=== PATIENT | female | born 1985 | race Caucasian/White ===

== ENCOUNTER 2017-03-31 13:37 | Emergency (ER) | payer SELFPAY ==
[2017-03-31 13:38] VITALS: BP 130/71; PULSE 79; RESP 18; TEMP 36.6; O2SAT 99; BMI 35.2
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
[2017-03-31 15:09] VITALS: PULSE 84; RESP 16
== END 2017-03-31 15:10 | disposition home or self-care (01) ==
PROVIDERS: Emergency Provider Emergency Medicine; Family Provider Family Medicine; PCP Family Medicine
DX: S06.0X0A Concussion without loss of consciousness, initial encounter (principal); S16.1XXA Strain of muscle, fascia and tendon at neck level, initial encounter; V53.5XXA Driver of pick-up truck or van injured in collision with car, pick-up truck or van in traffic accident, initial encounter; Y93.9 Activity, unspecified; Y92.481 Parking lot as the place of occurrence of the external cause; Y99.9 Unspecified external cause status
CPT/HCPCS: 99282

== ENCOUNTER → 2018-01-22 14:25 | Outpatient (CLI) | payer BC, SELFPAY ==
[2018-01-26 12:51] LABS: HPV Reflexed? NOT INDICATED
== END ==
PROVIDERS: PCP Family Medicine; Visit Provider Obstetrics & Gynecology
DX: Z12.4 Encounter for screening for malignant neoplasm of cervix (principal)
CPT/HCPCS: 88175; G0145

== ENCOUNTER 2018-02-21 10:30 | Day surgery (SDC) | payer BC, SELFPAY ==
--- NOTE | 2018-02-15 13:12 | HP.PCM_ITS ---
History and Physical Date of Admission: 02/15/18 [facility] Age: 32 HISTORY OF PRESENT ILLNESS: On 02/15/2018, Lulu Celveland, a 32 year old female 3 0 0 0 3, presented for: -- Pre-Op PT is a 32 yo female, G-3 P-3 here today for her preop appt. PT is scheduled to have a LAVH/BS / L oophorectomy done on 02/21/[address] Nayak at [facility]. PT denies any problems or concerns at this time. PTs medications, allergies and medical history reviewed and updated. dg -- Here for preop prior to LAVH, Bilateral salpingectomy and L oophorectomy for endometriosis, chronic pelvic pain. Documented endometrioma L ovary and prior L/S at time of her bilateral tubal occlusion showed endometriosis diffusely th roughout the pelvis. EB ALLERGIES: Depo-Provera, Hives and/or rash, IVP Dye, Iodine Containing and Intolerance-vomiting MEDICATIONS HISTORY: Patient is also takin. No Meds REVIEW OF SYSTEMS: GENERAL - Denies fever, or chills SKIN - Denies skin changes EYES - Denies visual changes EARS - Denies difficulty hearing NOSE - Denies nasal congestion or bleeding MOUTH - Denies sore throat or difficulty swallowing NECK - Denies pain or swelling RESPIRATORY - Denies shortness of breath or wheezing CARDIOVASCULAR - Denies palpitations or chest pain GASTROINTESTINAL - Denies nausea, vomiting, diarrhea, constipation GENITOURINARY - Denies dysuria, frequency of urination, incontinence of urine MUSCULOSKELETAL - Denies joint or muscle pain NEUROLOGICAL - Denies localized numbness or weakness PSYCHIATRIC - Denies depression or anxiety ENDOCRINE - Denies heat or cold intolerance, weight loss or gain HEMATO-IMMUNOLOGIC - Denies excesive bleeding with cuts PAST HISTORY: Breast/Ovarian/Colon Cancers - Mother had Breast Cancer approximately age 40-50 Infections - Chicken pox Illnesses - Asthma, Anemia Accidents - no injuries of consequence History of Abnormal PAPS - NO Hospitalizations - None SURGICAL HISTORY: . 09/2016 Skin Tumor Removal from Head Dr. Tan 2. Microdiscectomy, 05/03 3. 04/15/2015 Lap BTO with filshie, aspiration of hemorrhagic left ovarian cyst Mary Beth Nayak M.D. MENSTRUAL HISTORY: LMP Known?- Approximate-Month KnownAmount/Duration - 5-6 DAYS, Regularity - Regular, Frequency - monthly days, LMP - 01/17/18, Age Onset Menarche - 14 PAST PREGNANCIES: Total Pregnancies - 3; Full Term Pregnancies - 3; Premature - 0; Abortions, Induced - 0; Abortions, Spontaneous - 0; Ectopics - 0; Multiple Births - 0; Living Children - 3 SOCIAL HISTORY: Alcohol Use - none while pregant Smoking - smokes 1/2 PPD, ATQ! and quit 05/21/14 Diet - no special diet Lifestyle - moderate stress lifestyle and Exercise - regular Seat Belt Use - always Employer - [employer] Job Description - Middle School History Teacher Illicit Drug Use - denies use of street drugs Sexual Activity - Residence - lives with Place of - [place], [place] Hours Worked - 40 hours per week Spouse-Sig Other Name - Stas Spenceraver Spouse-Sig Other Occupation - Board Operator Spouse-Sig Other Phone No - [phone] Children Name(s) - Jovani Light Davida Control - Tubal PHYSICAL EXAMINATION BP- 112/60 Sitting, Right arm, regular cuff Weight- 175.00 lbs Height- 67.50 inch BMI:27.06 CONSTITUTIONAL - NAD, well nourished, and well developed HEENT - Normocephalic, PERRLA, EOMI NECK - no nuchal rigidity EXTREMITIES - No edema or calf tenderness NEUROLOGICAL - Cranial nerves II-XII grossly intact PSYCHIATRIC - A and O to time, place, person, mood and affect ASSESSMENT: 1. Endometriosis Of Ovary 2. Endometriosis Of Pelvic Peritoneum 3. Unspecified Ovarian Cyst, Left Side 4. Lower Abdominal Pain, Unspecified PLAN BY DIAGNOSIS: 1. Endometriosis Of Ovary, Endometriosis Of Pelvic Peritoneum, Lower Abdominal Pain, Unspecified, Unspecified Ovarian Cyst and Left Side Sono at last visit with probable endometrioma L ovary Prior L/S BTO, Filshie clips with implants all over uterus c/w probable endometriosis. Hemorrhagic cyst drained at that time (2015) on L ovary. No pain with intercourse. Denies significant pain with periods. Has bilateral lower abdominal pain and pain with intercourse. Advised of options for medical management: OCP and DepoLupron. Side effects discussed. Prior BTO. No further childbearing desired. Declines DepoProvera (allergic rxn to that injection) Declines medical management. Plans LAVH, bilateral salpingectomy and L oophorectomy. Reviewed R,B,A Discussed anticipated preop, operative and postop recovery including activity restrictions. Plan to leave R ovary in place to avoid need for ERT / due to her age. RTO in 2 wk after surgery for postoperative appt.
[2018-02-16 15:18] LABS: International Normalized Ratio 1.1
[2018-02-16 15:19] LABS: Partial Thromboplast Time 26.2 Seconds (24.1-36.2)
[2018-02-16 15:33] LABS: Hematocrit 40.1 % (37-47); Hemoglobin 13.8 g/dl (12.0-15.0); Mean Corp Hgb Conc 34.4 g/gl (32-36); Mean Corpuscular Hgb 31.2 pg (27.0-32.0); Mean Corpuscular Volume 90.5 fL (81-99); Mean Platelet Vol. 10.2 fl (6.2-12.0); Platelet Count 317 K/mm3 (150-450); RBC Distribution Width CV 13.5 % (11.6-14.6); Red Blood Count 4.43 M/mm3 (4.2-5.4); White Blood Count 7.9 K/mm3 (4.4-11.0)
[2018-02-16 15:34] LABS: Scan Indicated on CBC? Y/N NO
[2018-02-21] VITALS (12 sets, daily range): BP systolic 86–105; BP diastolic 50–69; PULSE 45–78; RESP 14–18; TEMP 36.3–36.9; O2SAT 97–100; BMI 26.9
--- NOTE | 2018-02-21 | HYST_PTH ---
PATIENT: [facility] [place] LOC: [facility] [place] U#:[id number] AGE/SX: 33/F ROOM: RE02/21/[address]: Dr. Mary Beth Nayak MD : 1985 BED: DIS: 02/22/2018 SPEC #: [id number] RECD: 02/21/18 14:22 STATUS: ANNY VIVI #: [id number] BRONSON: 02/21/18 00:[address]: Mary Beth Nayak DEPT: SURGICAL PATHOLOGY RECD BY: Orlando Mcdowell ENTERED: 02/21/18 14:22 SP TYPE: HYSTERECT OTHR DR: Dr. Zheng Duque MD Tissues: Uterus, NOS Procedures: Surgery Specimen Level V HEADER OPERATION: Hysterectomy, lap-assisted vaginal, bilateral salpingectomy, left oophorectomy PRE-OP DIAGNOSIS: Endometriosis of ovary; endometriosis of pelvic peritoneum, left ovarian cyst; lower abdominal pain TISSUE SUBMITTED: Uterus, bilateral fallopian tubes, left ovary MICROSCOPIC DIAGNOSIS Uterus, hysterectomy: Cervix - squamous metaplasia, nabothian cysts and mild chronic inflammation. Endometrium - proliferative endometrium. Myometrium - no pathologic change. Right fallopian tube - benign paratubal cyst. Left fallopian tube - benign paratubal cyst and tubo-ovarian adhesions. Left ovary - hemorrhagic corpus luteal cysts, hemorrhagic endometriotic cyst and corpora albicantia with associated clustered microcalcifications. AM:william 02/22/18 COMMENT Case has been reviewed in consultation with Dr. Marmolejo who concurs with the above diagnosis. IDC:[email or web address] MICROSCOPIC DESCRIPTION Slides are reviewed. GROSS DESCRIPTION Received in fixative is one container labeled with the patient's name and designated uterus, bilateral fallopian tubes, left ovary. The specimen consists of a hysterectomy specimen consisting of uterus with cervix and detached right fallopian tube and detached left fallopian tube and adjacent left ovary. The uterus with cervix weighs 105 gm and measures 9 x 6 x 5 cm. The serosal surface is sharma, glistening. The ectocervical mucosa is unremarkable. The external os is oval and patulous in contour. The endocervical canal measures 3 cm in length and the endocervical mucosa is sharma, glistening without any mass lesion. The triangular endometrial cavity measures 5 cm in length and up to 2 cm in width. The endometrium is sharma, glistening without any mass lesion and measures up to 0.2 cm in thickness. Sections of the uterine wall do not reveal any mass lesion and it measures up to 2.5 cm in thickness. The right fallopian tube measures 5 cm in length and 0.5 cm in diameter. The fimbrial end is identified. A paratubal cyst is noted measuring 0.3 cm in greatest dimension. Sections reveal unremarkable cut surfaces. The left fallopian tube measures 7 cm in length and up to 1.5 cm in diameter. The fimbrial end is identified. The fallopian tube is focally adherent to the adjacent ovary. A Filshie clip is noted in the middle portion of the fallopian tube which appears intact. Sections do not reveal any mass lesion. Adjacent left ovary measures 8 x 4.5 x 4 cm. The external surface is smooth without any papillation and is inked black. Sections reveal a hemorrhagic cyst containing bloody material and measures up to 5 cm in greatest dimension. Cooker Meal sections are submitted in 13 cassettes as follows: 1 - anterior cervix, 2 - posterior cervix, 3 & 4 - anterior uterine wall, 5 & 6 - posterior uterine wall, 7 - right fallopian tube, 8 - left fallopian tube, 912 - left ovary. / SJ:rg 02/21/18 TC:5 CPT: 40642
[2018-02-21] MEDS: Lactated Ringers 1,000 ML 125 ML IV ×2 (15:38→23:30)
[2018-02-21] MEDS: HYDROmorphone 1 MG/ML Syringe IV (15:51)
--- NOTE | 2018-02-21 17:51 | PCM.OP.BLANK ---
Operative Report Date of Procedure: 02/21/18 PROCEDURE: Laparoscopic assisted vaginal hysterectomy. Bilateral salpingectomy Left oophorectomy Preoperative diagnosis: Pelvic pain H/O endometriosis Prior L/S bilateral tubal occlusion, Filshie clips. Left adnexal cyst, enlarged left ovary Postop diagnosis: Pelvic pain H/O endometriosis Prior L/S bilateral tubal occlusion, Filshie clips. Left adnexal cyst, enlarged left ovary Anesthesia: General , GERARDO Rios and Kenn Roman MD Surgeon: Mary Beth Nayak MD Speech Therapy Teacher: JULES Kelly RN EBL 150cc Complications: none Drains: Brown draining clear yellow urine 160+ cc for case Fluids: replacement LR Findings: On exam under anesthesia, the cervix appears parous and with Gr 1 prolapse. At Laparoscopy: the uterus is normal appearing, without any serosal endometriosis implants. The right fallopian tube and ovary are freely mobile and normal appearing. The left ovary is enlarged, smoothly encapsulated. Mobile with filmy adhesions at the posterior pelvis. There are no significant adhesions or other implants of endometriosis noted in the pelvis . The left fallopian tube is normal appearing Gross inspection of the bowel , omentum, upper abdomen including gallbladder and liver edge was WNL. PATH: Uterus, bilateral fallopian tubes and enlarged left ovary. Left Filshie clip was removed. Right Filshie clip not visualized. Narrative account: After the risks, benefits and alternatives of the procedure were reviewed with the patient , informed consent was obtained. The patient was taken to the Operating room with an IV running . She was positioned in the dorsal supine position on the operating table and given general anesthesia. Once asleep she was positioned to the dorsal lithotomy position with the arms tucked at the sides and prepped and draped in the usual sterile fashion. A Brown catheter was inserted to drain the bladder. The weighted speculum was placed into the vagina and a single tooth tenaculum was placed at the cervix. A Raffi cannula was inserted into the cervix and secured into placed with the single - toothed tenaculum. Attention was then turned to the anterior abdominal wall. the chrome tanning drum operator's gloved were changed and skin incisions were created at the infraumbilical and suprapubic skin and at a point approximately senior living between the suprapubic and infraumbilical skin incisions. Local anesthesia was used to infiltrate the skin where the trocar incision sites were created. A transverse 5 mm infraumbilical skin incision , a transverse 5 mm suprapubic incision and an transverse 5 mm midline incision were created. A Veress needle was inserted in to the peritoneal cavity at the infraumbilical skin incision while maintaining upward traction of the anterior abdominal wall at the umbilicus. There was free drop of saline, free flow of CO2 and low opening pressure noted. Once the intraabdominal pressure had reached approximately 15 mm HG, the Veress needle was removed and a bladeless 5 mm trocar was inserted into the peritoneal cavity. Correct placement was confirmed using the laparoscope. Under direct visualization the other two 5 mm bladeless trocars were inserted into the peritoneal cavity. The left fallopian tube was grasped and retracted medially. Using a LigaSure device the fallopian tube was divided from the ovary and the mesosalpinx. The pedicle was dry. The left fallopian tube was removed from the pelvis through the suprapubic port and set aside for later pathology review. The left infundibulopelvic ligament pedicle was then divided using a [place] LigaSure device as the enlarged left ovary and normal appearing left fallopian tube were retracted medially. The broad ligament was then divided down to the level of the round ligament on both sides. At this point the laparoscopic portion of the case was completed. The trocars were left in place, but the instruments were removed and gas turned off. A sterile drape was used to cover the abdomen. Attention was then turned to the vaginal portion of the case. The Raffi cannula was removed and the single toothed tenaculum repositioned on the cervix. The cervical mucosal was then incised circumferentially using Bovie cautery and a knife. The posterior cul de sac was entered by sharp dissection with Bland scissors and a weighted speculum was placed into the posterior cul se sac. Dissection then was initiated at the anterior cervix to enter the anterior cul se sac. The uterosacral ligaments were clamped bilaterally with curved Kain clamps and the pedicles divided and suture ligated and tagged for later identification. Next the cardinal ligament was clamped bilaterally and divided and suture ligated. Adequate hemostasis was noted. The anterior cul de sac peritoneum was then entered by sharp dissection and a narrow Carrie retractor was placed into the anterior cul de sac to retract the bladder out of harm's way for the remainder of the case. The uterine arteries were clamped bilaterally , divided and suture ligated. Dissection then continued along each side of the uterus. Each pedicle was secured with a Kain clamp, divided and suture ligated until ultimately the uterine fundus was reached. The superior pedicles on each side were secured with a curved Kain clamp and the remaining uterus and attached left fallopian tube and enlarged left ovary were surgically amputated and set aside. The superior pedicle was then suture ligated, then free tied and tagged for identification. The superior pedicles were dry. There was bleeding noted along the posterior vaginal cuff and at both vaginal angles. The vaginal angles were clamped with Allis clamps and the angles oversewn with figure of eight stitches of 1 Vicryl. Excellent hemostasis was noted at this location. The posterior vaginal cuff was reapproximated to the posterior cul de sac with a running locked 1-0 Vicryl for hemostasis. The peritoneum was then closed with a running purse string suture of 1 Vicryl, incorporating the superior pedicles and uterosacral ligament tags. Excellent hemostasis was noted. The vaginal cuff was then reapproximated in a transverse closure, using interrupted and figure of eight stitches of 1 Vicryl. Excellent hemostasis was noted. The Brown was attached to the Brown bag. and clear yellow urine returned. A second look was performed with the laparoscope: excellent hemostasis was noted at all pedicles and at the vaginal cuff. Dali was sprayed along the cuff and pedicles for additional hemostasis. The pneumoperitoneum was reduced and all instruments and trocars were removed. The skin incisions were closed with 4-0 Monocryl in a subcuticular fashion. Sterile dressings were applied. (Dermabond and op sites) The patient was returned to dorsal supine position and awakened from general anesthesia. She was then transferred to the recovery room bed in stable condition after tolerating the procedure well. Sponge, lap, needle and instrument counts correct times two. Medications given preop and intraoperatively included: Cefotetan IV was given continuous improvement coach to the operating room , Marcaine with 1/200,00 epinephrine was used as a subcutaneous injection at the trocar skin incision sites, and Toradol 30 mg IV x one was given. For a complete listing of medications given preop and intraoperatively, please see the anesthesia record.
[2018-02-21] MEDS: Ketorolac 30 MG/ML Syringe IV ×2 (18:17→23:30)
[2018-02-21] MEDS: Acetaminophen 500 MG Tablet 1000 MG PO (19:56)
[2018-02-22 02:33] VITALS: BP 98/60; PULSE 64; RESP 16; TEMP 37.6; O2SAT 98
[2018-02-22] MEDS: oxyCODONE 5 MG Tablet PO ×2 (02:48→09:30)
[2018-02-22] MEDS: Ondansetron 4 MG/2 ML Vial IV (02:48)
[2018-02-22] MEDS: Ketorolac 30 MG/ML Syringe IV (06:11)
[2018-02-22] MEDS: 0.9% NaCl Peripheral Flush Adult/Peds IV (06:11)
[2018-02-22 06:41] LABS: Hematocrit 32.6 % (37-47); Mean Corp Hgb Conc 33.7 g/gl (32-36); Mean Corpuscular Hgb 31.1 pg (27.0-32.0); Mean Corpuscular Volume 92.1 fL (81-99); Mean Platelet Vol. 10.1 fl (6.2-12.0); Platelet Count 304 K/mm3 (150-450); RBC Distribution Width CV 14.2 % (11.6-14.6); RBC Distribution Width SD 46.4 fl (35.1-43.9); Red Blood Count 3.54 M/mm3 (4.2-5.4); White Blood Count 10.2 K/mm3 (4.4-11.0)
[2018-02-22 06:46] LABS: Scan Indicated on CBC? Y/N NO
[2018-02-22 07:07] LABS: Creatinine, Serum 0.54 mg/dL (0.55-1.02); EST Glomerular Filtration Rate 141 mL/min (>60); Est Glom Filt Rate - Afr Amer 170 mL/min (>60); Estimated Creatinine Clearance 150.88 ml/min
[2018-02-22 07:22] VITALS: O2SAT 97
--- NOTE | 2018-02-22 07:54 | PCM.PROGNOTE ---
Subjective: POD#1 Doing well. Minimal pain/cramping. Minimal vagina spotting. States her BP has been low. Brown removed, voiding trial in progress. No N/V. Objective: Lying in bed, playing game on cell phone. - Physical Exam General: Alert, Oriented x3, Cooperative, No apparent distress HEENT: Atraumatic Neck: Supple Abdomen: Soft, Non Tender, Non-Distended Skin: Incision - L/S incisions CDI. Op sites over all. Neurological: Cranial nerves II-XII grossly intact Psych/Mental Status: Normal Affect Vital Signs Temp Pulse Resp BP Pulse Ox 99.6 F H 64 16 98/60 97 // 02:33 02/22/18 02:33 02/22/18 02:33 02/22/18 02:33 02/22/18 07:22 Oxygen Flow Rate (L/min) 2 Oxygen Delivery Method Room Air Weight: 80.5 kg Body Mass Index (BMI) 26.9 Intake and Output for Last 24 Hours 01//10 03//02/22/18 23:59 23:59 23:59 Intake Total 3457 / 3457 1633 / 1633 Output Total 475 / 475 875 / 875 Balance 2982 / 2982 758 / 758 Laboratory Tests Past 24 Hrs 01/03/19 /05/08 06:10 06:10 WBC 10.2 RBC 3.54 L Hgb 11.0 L Hct 32.6 L MCV 92.1 MCH 31.1 MCHC 33.7 RDW 14.2 RDW Differential 46.4 H Plt Count 304 MPV 10.1 Creatinine 0.54 L Estim Creat Clear Calc 150.88 Est GFR (MDRD) Af Amer 170 Est GFR (MDRD) Non-Af 141 Medical Necessity - Tobacco Use Smoking Status: Never smoker Tobacco Use: Cigarettes Assessment/Plan POD#1 LAVH, LSO and R salpingectomy Stable postop. Hgb stable. Urine output good. Advised low pulse and BP likely as narcotic effect. Inc diet and activity as tolerated. Begin po meds. Voiding trial. Dischg home today if criteria met.
[2018-02-22 08:05] VITALS: BP 99/61; PULSE 61; RESP 14; TEMP 37.1; O2SAT 100
--- NOTE | 2018-02-22 10:23 | PCM.DC.VHY ---
Discharge Diet: No Restrictions Discharge Activity: May not drive while taking narcotic pain medications., May Shower, May Take a Tub Bath Return to work on:: 04/09/18 Call your doctor if you observe: Fever of 101 or Higher, Inability to have a bowel movement, Using more than one pad per hour, Calf discomfort, Uncontrolled pain Change Dressing in (Days):: 4 Remove Dressing in (days):: 4 Cleanse incision/area with: Soap & Water, Keep Dressing Clean & Dry Allergies/Adverse Reactions: Allergies Gadolinium-MRI Contrast Medium [CONTRAST] Allergy (Verified 02/14/18 10:56) Vomiting medroxyprogesterone acetate [From Depo-Provera] Allergy (Verified 02/14/18 10:56) Hives Medications to take at Discharge Acetaminophen [Tylenol] 1,000 mg PO Q8H PRN PRN tablet 02/22/18 Docusate Sodium [Colace] 100 mg PO BID #30 capsule 02/22/18 Naproxen [Naprosyn] 250 - 500 mg PO TID PRN PRN #30 tablet 02/22/18 Oxycodone [Oxyir] 5 mg PO Q6H PRN PRN 7 Days #14 tablet 02/22/18 Polyethylene Glycol 3350 [Miralax] 17 gm PO DAILY PRN #14 packet 02/22/18 The following prescriptions were given: Oxycodone [Oxyir] 5 mg PO Q6H PRN PRN 7 Days #14 tablet PRN Reason: Mod-Severe Pain (4-10/10) Naproxen [Naprosyn] 250 - 500 mg PO TID PRN PRN #30 tablet PRN Reason: Mild-Mod Pain (1-5/10) Polyethylene Glycol 3350 [Miralax] 17 gm PO DAILY PRN #14 packet PRN Reason: Constipation Docusate Sodium [Colace] 100 mg PO BID #30 capsule Primary Care Physician: Zheng Duque MD [Primary Care Provider] - Test Results: Test results from this visit will be discussed in further detail at your follow-up appointment, if applicable. Please Follow Up With: Mary Beth Nayak MD - [phone] When: in two weeks for postoperative appointment. Proposed Discharge Date: 02/22/18
--- NOTE | 2018-02-22 10:27 | DCINST_ITS ---
Discharge Diet: No Restrictions Discharge Activity: May not drive while taking narcotic pain medications., May Shower, May Take a Tub Bath Return to work on:: 04/09/18 Call your doctor if you observe: Fever of 101 or Higher, Inability to have a bowel movement, Using more than one pad per hour, Calf discomfort, Uncontrolled pain Change Dressing in (Days):: 4 Remove Dressing in (days):: 4 Cleanse incision/area with: Soap & Water, Keep Dressing Clean & Dry Allergies/Adverse Reactions: Allergies Gadolinium-MRI Contrast Medium [CONTRAST] Allergy (Verified 02/14/18 10:56) Vomiting medroxyprogesterone acetate [From Depo-Provera] Allergy (Verified 02/14/18 10:56) Hives Medications to take at Discharge Acetaminophen [Tylenol] 1,000 mg PO Q8H PRN PRN tablet 02/22/18 Docusate Sodium [Colace] 100 mg PO BID #30 capsule 02/22/18 Naproxen [Naprosyn] 250 - 500 mg PO TID PRN PRN #30 tablet 02/22/18 Oxycodone [Oxyir] 5 mg PO Q6H PRN PRN 7 Days #14 tablet 02/22/18 Polyethylene Glycol 3350 [Miralax] 17 gm PO DAILY PRN #14 packet 02/22/18 The following prescriptions were given: Oxycodone [Oxyir] 5 mg PO Q6H PRN PRN 7 Days #14 tablet PRN Reason: Mod-Severe Pain (4-10/10) Naproxen [Naprosyn] 250 - 500 mg PO TID PRN PRN #30 tablet PRN Reason: Mild-Mod Pain (1-5/10) Polyethylene Glycol 3350 [Miralax] 17 gm PO DAILY PRN #14 packet PRN Reason: Constipation Docusate Sodium [Colace] 100 mg PO BID #30 capsule Primary Care Physician: Zheng Duque MD [Primary Care Provider] - Test Results: Test results from this visit will be discussed in further detail at your follow- up appointment, if applicable. Please Follow Up With: Mary Beth Nayak MD - [phone] When: in two weeks for postoperative appointment. Proposed Discharge Date: 02/22/18
[2018-02-22 10:30] VITALS: BP 105/51; PULSE 64; RESP 16; TEMP 36.9; O2SAT 98
--- NOTE | 2018-02-22 11:05 | NURSING ---
spoke with Dr Nayak regarding oxyir script. since it is narcotic, Dr Nayak must use hospital computer to enter script to [facility], all other scripts went through. she reported that she will see a couple of patients in the office and will then come and send over script. all of this was communicated to patient and RN called [facility] to let them know to expect one more narcotic script. asked that they would call the patient when the order came through so her can pick them all up. pt knows to expect phone call from pharmacy
== END 2018-02-22 10:50 | disposition home or self-care (01) ==
LOC: SDC 10:30 → AC 10:33 → MS2 12:53
PROVIDERS: Family Provider Family Medicine; PCP Family Medicine; Referring Provider Obstetrics & Gynecology; Visit Provider Obstetrics & Gynecology
PROC: 0UT9FZZ Resection of Uterus, Via Natural or Artificial Opening With Percutaneous Endoscopic Assistance (ICD-10-PCS; CPT 58552; principal; 2018-02-21 12:05)
DX: R10.2 Pelvic and perineal pain (principal); N88.8 Other specified noninflammatory disorders of cervix uteri; N73.6 Female pelvic peritoneal adhesions (postinfective); N83.8 Other noninflammatory disorders of ovary, fallopian tube and broad ligament; N83.12 Corpus luteum cyst of left ovary; N80.1 Endometriosis of ovary; N80.3 Endometriosis of pelvic peritoneum; F17.210 Nicotine dependence, cigarettes, uncomplicated; N83.202 Unspecified ovarian cyst, left side; Z90.710 Acquired absence of both cervix and uterus
CPT/HCPCS: 00840; 58552; 36415; 82565; 85027; 85610; 85730; 86850; 86900; 88307; J7120; A4216; J2405

== ENCOUNTER → 2019-06-12 12:43 | Outpatient (CLI) | payer BC, SELFPAY ==
[2018-10-04 16:11] VITALS: BMI 26.9
--- NOTE | 2019-06-14 11:28 | BRONCHALL ---
Bronchoprovocation Challenge - Bronchoprovocation Challenge Bronchoprovocation Challenge: INTRODUCTION: The patient is a 34-year-old female who presents for a methacholine challenge secondary to a diagnosis of shortness of breath. The respiratory therapist reported good patient effort and reproducible results. INTERPRETATION: Initial spirometry did not show any large airways obstructive ventilatory defect and preserved airflows throughout. The patient was then given progressively increasing doses of methacholine in a standardized fashion. At no point during testing did the patient's FEV1 drop by 20% to meet the threshold criteria to indicate a positive test. IMPRESSION: Negative methacholine challenge.
== END ==
PROVIDERS: PCP Family Medicine; Referring Provider Family Medicine; Visit Provider Family Medicine
DX: R06.02 Shortness of breath (principal); R07.89 Other chest pain; R06.9 Unspecified abnormalities of breathing
CPT/HCPCS: 94070; 95070; J3490; J7674

== ENCOUNTER → 2024-09-10 | Outpatient (CLI) | payer BC, SELFPAY ==
--- OUTSIDE RECORDS SUMMARY | 2024-09-10 21:41 | XMS RPT_ITS | CCD ---
Author Organization [facility] Care Team Providers Care Test Pilot Name Role Phone Gene Tan MD Unavailable Zheng Wilson Unavailable Unavailable Unavailable Unavailable LEX CRUZ Attending Unavailable ZHENG WILSON Primary Care Unavailable Gene Tan MD Unavailable Zheng Wilson MD Primary Care Provider Zheng Wilson Referring Unavailable Zheng Wilson Attending Unavailable Zheng Wilson Primary Care Unavailable PROVIDER, UNKNOWN Primary Care Unavailable Zheng Wilson MD Primary Care Provider Zheng Wilson MD Primary Care Provider [phone] Ramon PATEL, Cristiane Unavailable Cristina Nielson PA-C Unavailable Zheng Wilson MD Primary Care Provider ZHENG WILSON Primary Care Unavailable LOLA BERNSTEIN Referring Unavaila ble ZHENG WILSON Attending Unavailable ZHENG WILSON Primary Care Unavailable Allergies Allergy Classification Reported Allergen(s) Allergy Type Date of Onset Reaction(s) Facility (6 sources) medroxyPROGESTERone drug allergy 017 Severe full body hives [facility] Work Phone: (20 sources) Iodine; Translations: [IODINE] Drug Allergy 019 Vomiting [facility] Work Phone: (20 sources) medroxyPROGESTERone; Translations: [MEDROXYPROGESTERONE] Drug Allergy 017 Other: See Comments [facility] (20 sources) Depo-Provera Contraceptive; Translations: [DEPO-PROVERA CONTRACEPTIVE] Drug Intolerance [facility]18 [facility] Work Phone: (1 source) medroxyPROGESTERone Drug Allergy [facility] (1 source) Gadolinium-MRI Contrast Medium Drug allergy (disorder) [facility] Medications Current Medications Medication Drug Class(es) Dates Sig (Normalized) Sig (Original) [id number] 200 actuat albuterol 0.09 mg/actuat metered dose inhaler (15 sources) beta2-Adrenergic Agonist Start: 11-21-2022 take 1-2 puff(s) by inhalation four times daily as needed for wheezing albuterol HFA (PROVENTIL HFA) 90 mcg/actuation inhaler Indications: Mild intermittent asthma with status asthmaticus (HCC) Inhale 1-2 Puffs as instructed four times a day as needed for wheezing/shortness of breath. 1 Each 1 11/21/2022 Active Comment on above: Inhale 1-2 Puffs as instructed four times a day as needed for wheezing/shortness of breath. Blood-Glucose Meter (ONETOUCH ULTRA2 METER) monitoring kit (1 source) Start: 06-13-2023 End: 06-14-2023 Blood-Glucose Meter (ONETOUCH ULTRA2 METER) monitoring kit Indications: Hypoglycemia 1 Each as needed for up to 1 day. 1 Each 0 06/13/2023 06/14/2023 Active Blood-Glucose Meter,Continuous (FREESTYLE KODY 3 READER) misc (5 sources) Start: 05-31-2023 Blood-Glucose Meter,Continuous (FREESTYLE KODY 3 READER) misc Use to check Blood Sugar four times or more daily 1 Each 05/31/2023 Active Start: 05-31-2023 Blood-Glucose Meter,Continuous (FREESTYLE KODY 3 READER) misc Use to check Blood Sugar four times or more daily 1 Each 0 05/31/2023 Active Comment on above: Use to check Blood S ugar four times or more daily Blood-Glucose Sensor (FREESTYLE KODY 3 SENSOR) efraín (5 sources) Start: 2023 Blood-Glucose Sensor (FREESTYLE KODY 3 SENSOR) efraín Apply new sensor every 14 days 2 Each 11 05/31/2023 Active Comment on above: Apply new sensor abilio ry 14 days dexamethasone 1 mg oral tablet (3 sources) Corticosteroid Start: 2023 dexAMETHasone (DECADRON) 1 mg tablet Indications: Elevated cortisol level , Class 2 obesity with body mass index (BMI) of 35.0 to 35.9 in adult, unspecified obesity type, unspecified whether serious comorbidity present , Fatigue, unspecified type Take at 11 pm and go for labs the next morning 1 tablet 06/13/2023 Active escitalopram 10 mg oral tablet (17 sources) Serotonin Reuptake Inhibitor take 1 tablet by mouth once daily escitalopram oxalate (LEXAPRO) 10 mg tablet Take 10 mg by mouth once daily. Take one tablet daily Active Comment on above: Take 10 mg by mouth once daily. Take one tablet daily isopropyl alcohol 0.7 ml/ml medicated pad (3 sources) Start: 2023 alcohol swabs Indications: Hypoglycemia Upto four times a day for checking sugars 100 Each 1 06/13/2023 Active methylPREDNISolone (1 source) Corticosteroid Start: 2022 End: 2022 methylPREDNISolone (MEDROL, RAULITO,) 4 mg Dose-Pack As Instructed per package 21 tablet 0 06/12/2022 06/17/2022 Active Comment on above: As Instructed per henry devries propranolol hydrochloride 10 mg oral tablet (9 sources) beta-Adrenergic Uzma Start: 2023 take 1 tablet by mouth once daily propranolol (INDERAL) 10 mg tablet Take 1 tablet by mouth once daily. 30 tablet 5 04/12/2023 Active Comment on above: Take 1 tablet by jeannine th once daily. vitamin b12 1 mg oral tablet (16 sources) Vitamin B12 Start: 2022 take 1 tablet by mouth once daily cyanocobalamin (VITAMIN B-12) 1,000 mcg tab Take 1 tablet by mouth once daily. 09/27/2022 Active Comment on above: Take 1 tablet by jeannine th once daily. Completed/Discontinued Medications Medication Drug Class(es) Dates Sig (Normalized) Sig (Original) ACETAMINOPHEN CAPS (6 sources) TYLENOL CAPS as needed ACETAMINOPHEN CAPS [id number] Maggie Ervin TYLENOL CAPS as needed ACETAMINOPHEN CAPS [phone] Maggie Ervin cyclobenzaprine hydrochloride 10 mg oral tablet (3 sources) Muscle Relaxant Start: 06-12-2022 take 1 tablet by mouth every eight hours as needed cyclobenzaprine (FLEXERIL) 10 mg tablet Take 1 tablet by mouth every 8 hours as needed. 14 tablet 0 06/12/2022 Active Comment on above: Take 1 tablet by jeannine th every 8 hours as needed. fluconazole 100 mg oral tablet (3 sources) Azole Antifungal Start: 08-07-2020 fluconazole (DIFLUCAN) 100 mg tablet Indications: Thrush Take 2 tablets today, then 1 tablet daily for 13 days, eat prior 15 tablet 0 08/07/2020 Active Comment on above: Take 2 tablets today , then 1 tablet daily for 13 days, eat prior ibuprofen (6 sources) Nonsteroidal Anti-inflammatory Drug IBUPROFEN CAPS as needed IBUPROFEN CAPS [id number] Maggie Ervin lidocaine hydrochloride 20 mg/ml mucous membrane topical solution (3 sources) Antiarrhythmic, Amide Local Anesthetic Start: 08-07-2020 lidocaine viscous (LIDOCAINE VISCOUS) 2 % solution Indications: Thrush Take 5-10 mL by mouth as needed for pain. Swish and spit 100 mL 0 08/07/2020 Active Comment on above: Take 5-10 mL by mout h as needed for pain. Swish and spit 24 hr metoprolol succinate 25 mg extended release oral tablet (5 sources) beta-Adrenergic Uzma Start: 11-18-2022 End: 04-12-2023 take 1 tablet by mouth once daily metoprolol succinate ER (TOPROL XL) 25 mg 24 hr tablet Indications: Paroxysmal sinus tachycardia (HCC) Take 1 tablet by mouth once daily. 30 tablet 5 01/14/2023 04/12/2023 Discontinued (Changing Therapy/Dosage Form) Comment on above: Take 0.5 tablets by mouth once daily. Take 1 tablet by jeannine th once daily. Problems Active Problems Problem Classification Problem Date Documented Date Episodic/Chronic Anxiety disorders (20 sources) Generalized anxiety disorder; Translations: [Generalized anxiety disorder] Onset: 01-08-2020 01-08-2020 Chronic Asthma (18 sources) Mild intermittent asthma; Translations: [Mild intermittent asthma, uncomplicated] Onset: 03-25-2016 03-25-2016 Chronic Attention-deficit, conduct, and disruptive behavior disorders (3 sources) Attention deficit hyperactivity disorder, predominantly inattentive type; Translations: [Attention-deficit hyperactivity disorder, predominantly inattentive type] Onset: 06-22-2024 5 Chronic Attention-deficit, conduct, and disruptive behavior disorders (1 source) Attention-deficit hyperactivity disorder, predominantly inattentive type; Translations: [ADHD (attention deficit hyperactivity disorder), inattentive type] Onset: 06-22-2024 Chronic Cardiac dysrhythmias (20 sources) Paroxysmal tachycardia; Translations: [Paroxysmal sinus tachycardia] Onset: 10-31-2022 01-14-2023 Chronic Disorders of teeth and jaw (3 sources) Temporomandibular joint disorder; Translations: [Unspecified temporomandibular joint disorder, unspecified side] 02-08-2023 Episodic Endometriosis (18 sources) Endometriosis (clinical); Translations: [Endometriosis, unspecified] Onset: 02-06-2020 02-06-2020 Chronic Miscellaneous mental health disorders (18 sources) Primary insomnia; Translations: [Primary insomnia] Onset: 06-11-2016 07-05-2017 Chronic Osteoarthritis (1 source) Degenerative joint disease involving multiple joints; Translations: [Polyosteoarthritis, unspecified] 02-08-2023 Chronic Other endocrine disorders (3 sources) Hypoglycemia; Translations: [Hypoglycemia, unspecified] 05-24-2023 Chronic Other non-traumatic joint disorders (1 source) Joint pain; Translations: [Pain in unspecified joint] 03-14-2023 Episodic Other nutritional; endocrine; and metabolic disorders (5 sources) Obese class I; Translations: [Obesity, unspecified] Onset: 04-12-2019 06-14-2019 Chronic Other nutritional; endocrine; and metabolic disorders (15 sources) Obese class II; Translations: [Obesity, unspecified] Onset: 04-12-2019 01-14-2023 Chronic Other nutritional; endocrine; and metabolic disorders (1 source) Obesity; Translations: [Obesity, unspecified] 06-13-2023 Chronic Other nutritional; endocrine; and metabolic disorders (1 source) Obesity, unspecified; Translations: [Class 2 obesity with body mass index (BMI) of 35.0 to 35.9 in adult, unspecified obesity type, unspecified whether serious comorbidity present] Onset: 07-14-2023 Chronic Other nutritional; endocrine; and metabolic disorders (1 source) Body mass index (BMI) 35.0-35.9, adult; Translations: [Class 2 obesity with body mass index (BMI) of 35.0 to 35.9 in adult, unspecified obesity type, unspecified whether serious comorbidity present] Onset: 07-14-2023 Chronic Residual codes; unclassified (1 source) Memory impairment; Translations: [Other amnesia] 09-26-2022 Episodic Spondylosis; intervertebral disc disorders; other back problems (19 sources) Degeneration of lumbar intervertebral disc; Translations: [Other intervertebral disc degeneration, lumbar region] Onset: 08-08-2015 03-25-2016 Chronic Unclassified (4 sources) Aftercare ; Translations: [Encounter for other specified surgical aftercare] Onset: 09-20-2016 10-04-2016 Unclassified (1 source) No current problems or disability 08-22-2016 Unclassified (1 source) APPOINTMENT CANCELLED 06-08-2023 Unclassified (1 source) Paroxysmal sinus tachycardia (HCC); Translations: [Paroxysmal sinus tachycardia (HCC)] Onset: 11-17-2022 Past or Other Problems Problem Classification Problem Date Documented Date Episodic/Chronic Biliary tract disease (18 sources) Biliary dyskinesia; Translations: [Other specified diseases of gallbladder] Onset: 06-08-2020 06-08-2020 Episodic Cardiac dysrhythmias (20 sources) Palpitations; Translations: [Palpitations] Onset: 04-12-2019 04-12-2019 Episodic Deficiency and other anemia (19 sources) Anemia; Translations: [Anemia, unspecified] Onset: 01-30-2014 08-07-2020 Episodic Malaise and fatigue (20 sources) Lack of stamina; Translations: [Other fatigue] Onset: 07-12-2019 07-12-2019 Episodic Neoplasms of unspecified nature or uncertain behavior (10 sources) Neoplasm of face; Translations: [Neoplasm of unspecified behavior of bone, soft tissue, and skin] Onset: 08-22-2016 08-26-2016 Episodic Nonspecific chest pain (18 sources) Chest pain; Translations: [Chest pain, unspecified] Onset: 04-12-2019 04-12-2019 Episodic Nutritional deficiencies (17 sources) Serum vitamin B12 low; Translations: [Deficiency of other specified B group vitamins] Onset: 09-27-2022 09-27-2022 Episodic Other lower respiratory disease (18 sources) Dyspnea; Translations: [Shortness of breath] Onset: 04-12-2019 04-12-2019 Episodic Other lower respiratory disease (18 sources) Abnormal breathing; Translations: [Unspecified abnormalities of breathing] Onset: 05-16-2019 05-16-2019 Episodic Other screening for suspected conditions (not mental disorders or infectious disease) (20 sources) Patient encounter status; Translations: [Encounter for screening for cardiovascular disorders] Onset: 03-25-2016 03-25-2016 Episodic Other skin disorders (20 sources) Trichilemmal cyst; Translations: [Trichodermal cyst] Onset: 09-19-2016 10-04-2016 Episodic Residual codes; unclassified (18 sources) H/O Spinal surgery; Translations: [Other specified postprocedural states] Onset: 07-09-2015 03-25-2016 Episodic Residual codes; unclassified (18 sources) FH: premature coronary heart disease; Translations: [Family history of ischemic heart disease and other diseases of the circulatory system] Onset: 07-12-2019 07-12-2019 Episodic Residual codes; unclassified (18 sources) Family history of breast cancer; Translations: [Family history of malignant neoplasm of breast] Onset: 01-30-2014 08-07-2020 Episodic Screening or history of mental health and substance abuse (20 sources) Ex-smoker; Translations: [Personal history of nicotine dependence] Onset: 03-25-2016 08-26-2016 Episodic Spondylosis; intervertebral disc disorders; other back problems (20 sources) Low back pain; Translations: [Acute low back pain] Onset: 08-10-2012 Episodic Results Test Name Value Interpretation Reference Range Facility [facility] 06-22-2024 CNOV Office Visit (FAMPWS ) DORETHA CLEVELAND ([id number]) 1985 F Date Time Provider Department 06/22/24 8:00 AM [facility] During your visit today, we recorded the following information about you: Pulse Respiration Blood pressure Weight 80/minute 16/minute 122/70 94.8 kg Zheng Wilson MD 06/22/2024 8:40 AM Signed Chief Complaint Patient presents with: EKG HPI Doretha Cleveland is a 39 year old female who presents here today for EKG. Patient seeing Psych virtually. Has her on Effexor and Strattera. The Strattera has not helped even though no side affects. Plan is to start a stimulant and with Hx of sinus tachycardia her psychiatrist would like her to get an EKG. Patient has been doing well on the Effexor for her anxiety. Still has the palpitations. More so afternoon and evening. Not increased in frequency. No chest pain. Still gets the shortness of breath at times but not increased. Past medical history, appointments, medications, allergies reviewed. Previous Medical History PAST MEDICAL HISTORY Diagnosis Date Asthma Biliary colic Chronic lower back pain 08/10/2012 Weight loss and strengthening help control. DDD (degenerative disc disease), lumbar 08/08/2015 Endometriosis Family history of early CAD 07/12/2019 KALI (generalized anxiety disorder) 01/08/2020 KALI (generalized anxiety disorder) History of microdiscectomy 07/09/2015 Mild intermittent asthma without complication (HCC) 03/25/2016 Obesity, Class I, BMI 30-34.9 04/12/2019 Obesity, Class II, BMI 35-39.9 04/12/2019 PONV (postoperative nausea and vomiting) Premature beats 10/31/2022 Halter 09/2022: PAC's and PVC's Sinus tachycardia 10/31/2022 Halter 09/2022 Well adult exam 04/12/2023 Last done: 01/14/2023 Previous Surgical History PAST SURGICAL HISTORY Procedure Laterality Date PAST SURGICAL HISTORY OF 2013 microdiscectomy; Dr. Long PAST SURGICAL HISTORY OF 03/2015 tubal ligation PAST SURGICAL HISTORY OF 2018 Vaginal Hyst, bilateral salpingectomy, left oophorectomc for endometriosis. Family History FAMILY HISTORY Problem Relation Age of Onset Breast Cancer Mother Coronary Artery Disease Paternal Grandfather Heart Attack Paternal Grandfather first occurred around age 50 Diabetes Maternal Grandfather Diabetes Father Thyroid Maternal Uncle Patient Allergies ALLERGIES Allergen Reactions Depo-Provera Contra* Hives Medroxyprogesterone Other: See Comments Contrast Dye [Iodin* Vomiting Current Medications Current Outpatient Medications on File Prior to Visit Medication Sig Lancets (ESILLAGETOUCH ULTRASOFT LANCETS) Use as instructed FOR TESTING- upto four times a day blood sugar diagnostic (ONETOUCH ULTRA TEST) test strip Use as instructed- upto four times daily alcohol swabs Upto four times a day for checking sugars dexAMETHasone (DECADRON) 1 mg tablet Take at 11 pm and go for labs the next morning Blood-Glucose Sensor (FREESTYLE KODY 3 SENSOR) efraín Apply new sensor every 14 days Blood-Glucose Meter,Continuous (FREESTYLE KODY 3 READER) misc Use to check Blood Sugar four times or more daily propranolol (INDERAL) 10 mg tablet Take 1 tablet by mouth once daily. (Patient not taking: Reported on 06/08/2023) albuterol HFA (PROVENTIL HFA) 90 mcg/actuation inhaler Inhale 1-2 Puffs as instructed four times a day as needed for wheezing/shortness of breath. cyanocobalamin (VITAMIN B-12) 1,000 mcg tab Take 1 tablet by mouth once daily. (Patient not taking: Reported on 06/08/2023) escitalopram oxalate (LEXAPRO) 10 mg tablet Take 10 mg by mouth once daily. Take one tablet daily (Patient not taking: Reported on 06/08/2023) No current facility-administered medications on file prior to visit. Social History Social History Tobacco Use Smoking status: Former Current packs/day: 0.00 Average packs/day: 1 pack/day for 9.0 years (9.0 ttl pk-yrs) Types: Cigarettes Start date: 2004 Quit date: 2014 Years since quittin.3 Smokeless tobacco: Never Vaping Use Vaping status: Never Used Substance Use Topics Alcohol use: Yes Comment: social (1 or 2 glasses of wine) Drug use: Yes Types: Marijuana Comment: medical card Review of Symptoms REVIEW OF SYSTEMS See HPI EXAM: BP 122/70 Pulse 80 Resp 16 Wt 94.8 kg (209 lb) LMP 06/14/2017 (Approximate) BMI 31.78 kg/m? General Appearance: Well appearing, alert, in no acute distress, well-hydrated, well nourished.. Lungs: Lungs clear to auscultation. No wheezing, rhonchi, rales.. Heart: RRR without murmur, gallop, or rubs. No ectopy. Extremities: No deformities, edema, skin discoloration, Good capillary refill. . Health Maintenance List Depression Screening Never done DTaP,Tdap,Td Vaccine(1 - Tdap) Never done Cervical Cancer Screening due on 01/22/2021 Covid-19 Vaccine( season (more content not included)... Normal [facility] [id number] 06-22-2024 ECG01 Ventricular Rate : 8 2 BPM Atrial Rate : 82 BPM P-R Interval : 154 ms QRS Duration : 88 ms Q-T Interval : 368 ms QTC Calculation(Bazett) : 429 ms Calculated P [place] : 21 degrees Calculated R [place] : 10 degrees Calculated T [place] : 6 degrees NORMAL SINUS RHYTHM NONSPECIFIC ST AND T WAVE ABNORMALITY ABNORMAL ECG Confirmed by MD LOUIE QARAB ([id number]) on 06/24/2024 1:57:06 PM NAME : DORETHA CLEVELAND PID : [id number] : 1985 Gender : Female Race : ORD : Procedure Date : Jun 22 2024 08:16:27 Edit Date : Jun 24 2024 13:57:10 Diagnosis: NORMAL SINUS RHYTHM NONSPECIFIC ST AND T WAVE ABNORMALITY ABNORMAL ECG Confirmed by MD LOUIE QARAB ([id number]) on 06/24/2024 1:57:06 PM Test Reason : Location : 136 : [facility] Overread By : MD LOUIE QARAB Edited By : MD LOUIE QARAB Referred By : Zheng Wilson Acquired by : Maren Salas [facility] Brenda russell Dex SerPl-ncon Cortisol post dose dexamethasone [Mass/Vol] 0.7 ug/dL Normal <1.8 [facility] Comment on above: Order Comment: Speci men Type: BLOOD SPECIMEN Ordering Facility: [facility] Address: [address] [id number] Result Comment: Afte r overnight 1 mg dexamethasone, an health policy nurse cortisol of <1.8 ug/dL may indicate an adequate cortisol suppression. This result should be interpreted within the clinical context and other test results. Ruth et al. Evidence for the Low Dose Dexamethasone Suppression Test to Screen for Sofi's Syndrome - Recommendations for a Protocol for Biochemistry Laboratories. 1997 [facility]. Clin. Biochem. 34 [phone]. Performed By: #### 4 [id number] #### [facility] CLIA [id number] [facility] [id number] [place] [address] [place] DEXAMETHASONEon 07-14-2023 DEXAMETHASONE 304.0 ng/dL Normal [facility] Comment on above: Order Comment: Speci men Type: BLOOD SPECIMEN Ordering Facility: [facility] Address: [address] [place] [address] Result Comment: INTE RPRETIVE INFORMATION: Dexamethasone, Serum or Plasma by LC-MS/MS Adults baseline: Less than 50 ng/dL 8:00 AM draw following 1 mg dexamethasone between 11:00 pm and 12:00 am the previous evenin - 295 ng/dL 8:00 AM draw following 8 mg dexamethasone (4 x 2 mg doses) between 11:00 pm and 12:00 am the previous evenin - 2850 ng/dL This test was developed and its performance characteristics determined by [facility]. It has not been cleared or approved by the [place] Food and Drug Administration. This test was performed in a CLIA certified laboratory and is intended for clinical purposes. Performed By: [facility] [address] [place] [address] Picker / Packer: Osmar Villalba MD, PhD CLIA Number: [id number] Performed By: #### D EXA #### [facility] CLIA [id number] [address] [place] [address] ED NOTEon 06-08-2023 ED NOTE HNO ID: [id number] Author: FARHANA KNIGHT RN Service: ? Author Type: Registered Nurse Type: ED Notes Filed: 06/08/2023 19:47 Note Text: Pt having on and off chronic back pain. Pt states PCP did multiple blood tests and refuses to take any medication, for pain Normal [facility] TAY BY IFA WITH REFLEXon Nuclear Ab Ql (S) Negative Negative [facility] C-REACTIVE PROTEIN (CRP)on 0 03-15-2023 CRP [Mass/Vol] 0.3 mg/dL <0.9 mg/dL [facility] CCP ANTIBODY IGGon Cyclic citrullinated peptide IgG Qn <20 Units [facility] Cyclic citrullinated peptide IgG Qnon 03-15-2023 CCP Antibody IgG Qualitative Negative Negative [facility] RHEUMATOID FACTOR BLon 03-15 Rheumatoid factor Qn <16 IU/mL [facility] ESR Westergren method (Bld) [Velocity]on 03-14-2023 ESR (Bld) [Velocity] 8 mm/h 0 - 20 mm/hr [facility] No Panel Informationon 03-14 [facility] MR Temporomandibular joint W O contraston 02-22-2023 Addendum by Provider , [facility] on 02/28/2023 11:10 AM EST * * *Final Report* * * * * * SEE BOTTOM OF REPORT FOR ADDENDED TEXT * * * DATE OF EXAM: Feb 22 2023 11:03AM M2M 0328 - MRI TMJ WO IVCON / PROCEDURE REASON: articular disc disorder M26.63 * * * * Physician Interpretation * * * * * * * * * * * * ORIGINAL REPORT * * * * * * * * EXAMINATION: MRI TMJ WO IVCON HISTORY: Articular disc disorder M26.63 TECHNIQUE: MRI TMJ protocol without contrast, including open- and closed-mouth views. COMPARISON: MRI brain 05/28/2019 RESULT: RIGHT: Alignment: Within normal limits. Condylar head: Within normal limits. Mandibular fossa: Within normal limits. Articulation / Articular disc: Maintained joint space with relatively diminished anterior translation of the mandibular condyle in the open-mouth view compared to the contralateral side. Joint effusion: Small volume joint effusion. Periarticular soft tissues/extract puller space: Within normal limits. LEFT: Alignment: Within normal limits. Condylar head: Within normal limits. Mandibular fossa: Within normal limits. Articulation / Articular disc: Within normal limits, including normal disc movement. Joint effusion: Small volume joint effusion. Periarticular soft tissues/extract puller space: Within normal limits. Additional findings: Unremarkable imaged intracranial contents. IMPRESSION: Asymmetric relatively diminished anterior translation of the mandibular condyle on the right in the open-mouth view with relatively normal articulation on the left. Small bilateral joint effusions. * * * * * * * * ADDENDUM #1 * * * * * * * * On further review, somewhat more moderate volume joint effusion is present bilaterally, significantly greater on the right. Toe Trimmer: JAVIER Transcribe Date/Time: Feb 28 2023 11:07A Dictated by : KHALIF MATHEW MD This examination was interpreted and the report reviewed and electronically signed by: KHALIF MATHEW MD on Feb 22 2023 7:25PM EST This document has been addended by: KHALIF MATHEW MD on Feb 28 2023 11:07AM EST [facility] Radiology Study observation (narrative) [facility] MR Temporomandibular joint W O contrastOrdered By: [facility] Provider on 02-22-2023 [facility] CBC W Auto Differential pane l (Bld)on 09-27-2022 Basophils (Bld) [#/Vol] <0.11 k/uL [facility] Basophils/100 WBC (Bld) 0.1 % [facility] Differential cell count method Nom (Bld) Auto [facility] Eosinophils (Bld) [#/Vol] 0.15 10*3/uL <0.46 k/uL [facility] Eosinophils/100 WBC (Bld) 1.9 % [facility] Erythrocyte distribution width (RBC) [Ratio] 12.4 % 11.5 - 15.0 % [facility] Hematocrit (Bld) [Volume fraction] 42.5 % 36.0 - 46.0 % [facility] Hemoglobin (Bld) [Mass/Vol] 14.5 g/dL 11.5 - 15.5 g/dL [facility] Immature granulocytes (Bld) [#/Vol] <0.10 k/uL [facility] Immature granulocytes/100 WBC (Bld) 0.1 % [facility] Lymphocytes (Bld) [#/Vol] 2.12 10*3/uL 1.00 - 4.00 k/uL [facility] Lymphocytes/100 WBC (Bld) 26.6 % [facility] MCH (RBC) [Entitic mass] 31.2 pg 26.0 - 34.0 pg [facility] MCHC (RBC) [Mass/Vol] 34.1 g/dL 30.5 - 36.0 g/dL [facility] MCV (RBC) [Entitic vol] 91.4 fL 80.0 - 100.0 fL [facility] Monocytes (Bld) [#/Vol] 0.39 10*3/uL <0.87 k/uL [facility] Monocytes/100 WBC (Bld) 4.9 % [facility] Neutrophils (Bld) [#/Vol] 5.28 10*3/uL 1.45 - 7.50 k/uL [facility] Neutrophils/100 WBC (Bld) 66.4 % [facility] Nucleated RBC (Bld) [#/Vol] <0.01 k/uL [facility] Nucleated RBC/100 WBC (Bld) [Ratio] 0.0 /100 WBC [facility] Platelet mean volume (Bld) [Entitic vol] 10.1 fL 9.0 - 12.7 fL [facility] Platelets (Bld) [#/Vol] 328 10*3/uL 150 - 400 k/uL [facility] RBC (Bld) [#/Vol] 4.65 10*6/uL 3.90 - 5.2 0 m/uL [facility] WBC (Bld) [#/Vol] 7.96 10*3/uL 3.70 - 11. 00 k/uL [facility] OPERATIVE NOon 07-06-2020 OPERATIVE NO HNO ID: [id number] Author: Delia Beal MD Service: General Surgery Author Type: Physician Type: Operative Report Filed: 07/07/2020 8:31 AM Note Text: [facility] - Operative Report DORETHA CLEVELAND : 1985 AGE: 35. SEX: F PATIENT TYPE: A [facility] LOCATION: [facility] ATTENDING PHYSICIAN: DELIA BEAL CSN NUMBER: [id number] DATE OF SURGERY/PROCEDURE: 07/03/2020 INCISION/PROCEDURE START TIME: 8:51 AM INCISION CLOSE/PROCEDURE END TIME: 9:40 AM PREOPERATIVE DIAGNOSIS: Cholecystitis. POSTOPERATIVE DIAGNOSIS: Cholecystitis. SURGEON: Delia Beal MD [employer] JOINTER: Director Veterinary: Gene Fernando SA SURGERY/PROCEDURE: Laparoscopic cholecystectomy with robotic assistance. ANESTHESIA: General endotracheal. ESTIMATED BLOOD LOSS: Minimal. INDICATIONS FOR PROCEDURE: This is a 35-year-old female with right upper quadrant abdominal pain. She was found to have biliary colic. Counseled on need for minimally invasive cholecystectomy. Risks and benefits of the procedure including, but not exclusive to bleeding, infection, possibility of postoperative bile leak were discussed with her and she elected to undergo the procedure. DESCRIPTION OF PROCEDURE: After informed consent was obtained, the patient was brought to the operative room, placed on operative table in supine position. After induction of general anesthetic, the preoperative check was completed, the abdomen was prepped and draped in sterile fashion. A small incision was made in the left upper quadrant at Santoro's point and a Veress needle was inserted. After an adequate drop test was performed, the CO2 insufflation was connected to low flow then to high-flow to establish pneumoperitoneum. An infraumbilical incision was made and a robotic 8 mm trocar site was inserted in the infraumbilical region. We then performed a diagnostic laparoscopy. There was no evidence of injury from the Veress needle. We then placed two 8 mm trocar sites in the left upper quadrant and another 8 mm in the right upper quadrant. The patient was then placed in reverse Trendelenburg position. The robot was then docked into place. The gallbladder was then grasped. The cystoduodenal ligament then was opened. The cystic duct and cystic artery were skeletonized. Critical view was then obtained. Cystic duct and cystic artery were then clipped with Weck clips and divided with scissors. The gallbladder was taken off the gallbladder fossa with electrocautery. We then put the gallbladder in an Endobag and brought it out through the umbilical trocar site. The ports were removed and abdomen was desufflated. We closed the skin with a running 4-0 Monocryl stitch. At the end of the case, all sponge and needle counts correct. The patient was awakened and transferred to PACU in stable condition. I was present and scrubbed throughout the entire procedure. ADDENDUM: A diagnostic laparoscopy was performed of the pelvis. We did not see evidence of any endometriosis in the pelvis or along the right or left paracolic gutters. Delia Beal MD NSA:[id number] /[id number] [facility] ANES POSTPROC EVALon 021 ANES POSTPROC EVAL HNO ID: [id number] Author: Sharla Casanova MD Service: Anesthesiology Author Type: Anesthesiologist Type: Anesthesia Postprocedure Evaluation Filed: 07/03/2020 3:50 PM Note Text: POST ANESTHESIA EVALUATION NOTE : 1985 Procedure Summary Date: 07/03/20 Room / Location: [place] OR 04 / [place] Anesthesia Start: 819 Anesthesia Stop: 950 Procedure: XI ROBOTIC LAPAROSCOPIC CHOLECYSTECTOMY (N/A Abdomen) Diagnosis: Biliary colic (Biliary colic [K80.50]) Surgeons: Delia Beal MD Responsible Provider: Sharla Casanova MD Anesthesia Type: general ASA Status: 2 Anesthesia Type: general Last vitals Vitals Value Taken Time BP 116/73 07/03/20 1145 Temp 36.2 ?C (97.2 ?F) 07/03/20 1130 HR SpO2 78 07/03/20 1151 Resp 18 07/03/20 1151 SpO2 98 % 07/03/20 1151 Vitals shown include unvalidated device data. Post Anesthesia Patient Status Patient Evaluation: PACU. PACU/ICU Patient Condition: stable. Anticipated Disposition: phase 2 then home. Neurological Status: aware and responsive. Pulmonary Status: breathing comfortably on room air Airway Control: returned to baseline unsupported. Cardiovascular Status: stable. Pain Management: clinically adequate Postoperative Hydration: acceptable. Intraoperative Events: no significant anesthesia events Post Operative Nausea/Vomiting Status: no significant post operative nausea or vomiting Anesthetic Observations: Recommendation: continue current plan of care. No complications documented. SIGNATURE: Sharla Casanova MD PATIENT NAME: Doretha Cleveland DATE: July 03, 2020 TIME: 3:49 PM CSN: [id number] [facility] ANES PRE-OPon 07-03-2020 ANES PRE-OP HNO ID: [id number] Author: Sharla Casanova MD Service: Anesthesiology Author Type: Anesthesiologist Type: Anesthesia Preprocedure Evaluation Filed: 07/03/2020 8:19 AM Note Text: ANESTHESIOLOGY DAY OF SURGERY NOTE : 1985 Procedure(s) (LRB): XI ROBOTIC LAPAROSCOPIC CHOLECYSTECTOMY (N/A) Surgeon(s): Delia Beal MD Estimated body mass index is 39.99 kg/m? as calculated from the following: Height as of 06/25/20: 172.7 cm (5' 8). Weight as of 06/25/20: 119.3 kg (263 lb). Most recent hematocrit and potassium results: Hematocrit 40.5 04/11/2019 Potassium 3.9 04/11/2019 Relevant Problems PULMONARY (+) Mild intermittent asthma without complication (+) Shortness of breath I - PHYSICAL EVALUATION AIRWAY Patient intubated: No. Tracheostomy tube not present Mallampati: III. TM distance: >3 FB. Neck ROM: limited extension. Mouth opening: adequate. Short neck: no. Thick neck: yes DENTAL Dental findings: teeth intact. II - ANESTHESIA PLAN ASA Score: 2 Anesthetic Plan: general Airway type: ETT The patient is not a current smoker. NPO Status: adequate Perioperative beta-uzma/statin: na. Monitoring plan: standard ASA. Postoperative analgesic plan: multimodal analgesia. Anesthetic Risks, Benefits, Alternatives, Personnel Discussed. Consent obtained from: patient.Patient / Surrogate agrees to blood products: blood products not planned Significant changes in the patient condition since the History and Physical, not otherwise documented in primary service progress note: no. Potential Anesthesia issues that may suggest increased risk of complications or contraindication to planned procedure: none. Vitals Value Taken Time BP 115/78 07/03/20 0710 Pulse 78 07/03/20 0710 Resp 17 07/03/20 0710 Temp 36 ?C (96.8 ?F) 07/03/20 0710 SpO2 98 % 07/03/20 0710 Facility-Administered Medications as of 07/03/2020 Medication Dose Route Frequency - lactated ringers iv infusion 5-30 mL/hr INTRAVENOUS CONTINUOUS Outpatient Medications as of 07/03/2020 Medication Sig - elagolix (ORILISSA) 150 mg tab Take 1 tablet by mouth once daily. Per PATIENT CARE - albuterol HFA (PROVENTIL HFA) 90 mcg/actuation inhaler Inhale 1-2 Puffs as instructed four times daily as needed for Wheezing/Shortness of Breath. Other history: PONV Asthma, mild, uses inhaler ~ 1x/year Stress echo 04/12/19: EF 65%, negative for ischemia at 93% I have interviewed and examined the patient. I have reviewed the medical record and/or the pre-anesthesia evaluation, pertinent labs, and test results. This contains updated information obtained within 48 hours of Surgery/Procedure. SIGNATURE: Sharla Casanova MD PATIENT NAME: Doretha Cleveland DATE: July 03, 2020 TIME: 8:18 AM CSN: [id number] [facility] BRIEF OP NOTon 07-03-2020 BRIEF OP NOT HNO ID: [id number] Author: Marcus Dalton DO Service: General Surgery Author Type: Resident Type: Brief Op Note Filed: 07/03/2020 10:00 AM Note Text: Attestation signed by Delia Beal MD at 07/06/2020 11:12 AM I was present for the critical portions of the procedure and was immediately available to provide assistance. I agree with the residents operative dictation. Delia Beal MD July 06, 2020 11:12 AM BRIEF OPERATIVE / PROCEDURE NOTE LOG ID: [id number] SURGERY/PROCEDURE DATE: 07/03/2020 INCISION/PROCEDURE START TIME: 8:51 AM INCISION CLOSE/PROCEDURE END TIME: 9:40 AM SURGEON(S)/PROCEDURALI ST(S) AND [employer] JOINTER(S): Surgeon(s) and Role: * Delia Beal MD - Primary * Rajendra Cesar MD - Resident - Assisting * Marcus Dalton DO - Resident - Assisting Director Veterinary: Gene Fernando SA SURGERY/PROCEDURE(S): Robotic cholecystectomy ANESTHESIA: General FINDINGS: Gallbladder without edema or surrounding inflammation. Critical view obtained. 2 clips on cystic duct, 1 on cystic artery. ESTIMATED BLOOD LOSS: 5 mls SPECIMENS: Gallbladder COMPLICATIONS: None PRE-OP/PRE-PROCEDURE DIAGNOSIS: chronic cholecystitis POST-OP/POST-PROCEDURE DIAGNOSIS: Same as Preop SIGNATURE: Marcus Dalton DO PATIENT NAME: Doretha Cleveland DATE: July 03, 2020 TIME: 9:58 AM Elective General Surgery Service Pager: For questions or concerns Mon-Fri 6a-5p please page [phone]. After 5pm and on Weekends and Holidays, please page [phone] if in ICU or [phone] if on RNF. Normal [facility] SURGICAL PATHOLOGYon CASE REPORT [facility] Comment on above: Order Comment: Speci men Type: TISSUE SPECIMEN Result Comment: Surg ical Pathology Report Case: [id number] Authorizing Provider: Delia Beal MD Collected: 07/03/2020 09:11 AM Ordering Location: [place] [facility] [place] Received: 07/03/2020 12:06 PM Pathologist: Micah Rodriguez MD Specimen: GALLBLADDER Performed By: #### S #### [facility] CLIA [id number] [address] [place] [address] FINAL DIAGNOSIS Normal [facility] Comment on above: Order Comment: Speci men Type: TISSUE SPECIMEN Result Comment: Gall bladder (laparoscopic cholecystectomy) - Mild chronic cholecystitis. Performed By: #### S #### [facility] CLIA [id number] [address] [place] [address] FINAL PERFORMING LAB Normal [facility] Comment on above: Order Comment: Speci men Type: TISSUE SPECIMEN Result Comment: Diag nostic interpretation performed at [facility], [address] [place] [address] CLIA# [id number] Picker / Packer: Yohannes Malin M.D. Performed By: #### S #### [facility] CLIA [id number] [address] [place] [address] GROSS DESCRIPTION A. GALLBLADDER. Normal [facility] Comment on above: Order Comment: Speci men Type: TISSUE SPECIMEN Result Comment: A. R eceived in formalin labeled gallbladder is a gallbladder measuring 6 x 2.4 x 1.2 cm. The serosal surface is pink???sharma smooth and glistening. Upon opening the average wall thickness is 0.2 cm. The mucosal surface is red???sharma and velvety. The cystic duct is not impacted. No calculi are identified within the specimen or in the container. No possible lymph nodes are identified near the cystic duct. Web Manager sections including the cystic duct and mucosa are submitted in cassette A1. Gross examination performed at [facility], [address] [place] [address] OLS July 03, 2020 1:19 PM Performed By: #### S #### [facility] CLIA [id number] [address] [place] [address] HISTORY PHYSICALon 1 HISTORY PHYSICAL HNO ID: [id number] Author: Danielle Avila APRN.NUTRITION COORDINATOR Service: ? Author Type: Nurse Practitioner Type: HANDP Filed: 06/25/2020 9:05 AM Note Text: HISTORY AND PHYSICAL EXAMINATION SERVICE DATE: 06/25/2020 SERVICE TIME: 839 PRIMARY CARE PHYSICIAN: Zheng Wilson REASON FOR VISIT: Doretha Cleveland is a 35 year old female who is scheduled for Procedure(s): LAPAROSCOPIC CHOLECYSTECTOMY (N/A) at the request of Dr. Delia Beal for routine HANDP. My final recommendation will be communicated back to the requesting physician by way of shared medical record or letter. Subjective The patient has the following: ACTIVE PROBLEM LIST Chronic Lower Back Pain History of Microdiscectomy Ddd (Degenerative Disc Disease), Lumbar Mild Intermittent Asthma Without Complication Encounter for Gynecological Examination Without Abnormal Finding Ex-Smoker Encounter for Screening for Cardiovascular Disorders Encounter for Screening for Diabetes Mellitus Primary Insomnia Trichilemmal Cyst Shortness of Breath Abnormal Ekg Chest Pain Palpitations Obesity, Class I, Bmi 30-34.9 Abnormality of Breathing Decreased Stamina Family History of Early Cad Kali (Generalized Anxiety Disorder) Endometriosis Biliary Dyskinesia PAST MEDICAL HISTORY Diagnosis Date - Asthma - Biliary colic - Chronic lower back pain 08/10/2012 Weight loss and strengthening help control. - DDD (degenerative disc disease), lumbar 08/08/2015 - Endometriosis - Family history of early CAD 07/12/2019 - KALI (generalized anxiety disorder) 01/08/2020 - History of microdiscectomy 07/09/2015 - Mild intermittent asthma without complication 03/25/2016 - Obesity, Class I, BMI 30-34.9 04/12/2019 - PONV (postoperative nausea and vomiting) PAST SURGICAL HISTORY Procedure Laterality Date - PAST SURGICAL HISTORY OF 2013 microdiscectomy; Dr. Long - PAST SURGICAL HISTORY OF 03/2015 tubal ligation - PAST SURGICAL HISTORY OF 2018 Vaginal Hyst, bilateral salpingectomy, left oophorectomc FAMILY HISTORY Problem Relation Age of Onset - Breast Cancer Mother - Coronary Artery Disease Paternal Grandfather - Heart Attack Paternal Grandfather first occurred around age 50 - Diabetes Maternal Grandfather - Diabetes Father - Thyroid Maternal Uncle Social History Tobacco Use - Smoking status: Former Smoker Packs/day: 1.00 Years: 9.00 Pack years: 9.00 Types: Cigarettes Quit date: 2013 Years since quittin.3 - Smokeless tobacco: Never Used Vaping Use - Vaping Use: Never used Substance Use Topics - Alcohol use: Yes Comment: social (1 or 2 glasses of wine) - Drug use: No Prior to Admission medications as of 06/25/20 0838 Medication Sig Last Dose Taking elagolix (ORILISSA) 150 mg tab Take 1 tablet by mouth once daily. Per PATIENT CARE Taking Yes albuterol HFA (PROVENTIL HFA) 90 mcg/actuation inhaler Inhale 1-2 Puffs as instructed four times daily as needed for Wheezing/Shortness of Breath. Taking Yes baclofen vaginal suppository 10 mg (CPD) Insert one suppository vaginally once daily as directed. No medication comments found. ALLERGIES Allergen Reactions - Medroxyprogesterone Other: See Comments - Depo-Provera Contra* Hives - Contrast Dye [Iodin* Vomiting CHIEF COMPLAINT: Biliary colic HPI: This is a 35 year old female that presents today for presurgical testing with c/o above. Patient reports that for the past year she has been having left-sided mid sternal chest pain and palpitations that have not been associated with any certain activities. States she is not sure what makes the symptoms worse or better. Also states she has been having SOB with activity and at rest. Reports that she had all sorts of test done and it is due to my gallbladder. Denies any pain today, denies any recent fevers or chills. No pain today no fevers. Patient has met with surgeon and has agreed to surgical intervention. REVIEW OF SYSTEMS: General: No weight loss, malaise or fevers. Neurological: No history of TIA's, stroke, CLOCK MAKER tumor, impaired sensorium, hemiplegia, paraplegia or quadraplegia. No neurological symptoms or problems. Respiratory: Positive for: asthma and tobacco use (former smoker). Negative for: bronchitis, COPD, current cough, bronchodilator used daily for the last 3 months, home oxygen, pneumonia within 6 weeks, URI < 2 weeks and obstructive sleep apnea. Cardiovascular: Palpitations, CP left mid sternal intermittent not related to any certain activities, had negative cardiac work up, states she was told that it was related to her gallbladder causing inflammation on her diaphragm. Negative for: arrhythmia, CAD, CHF, DVT/PE, hyperlipidemia, hypertension and murmur/valvular heart disease. GI: See HPI : No history of dysuria, frequency or incontinence, stones or chronic kidney disease. No difficulty urinating, nocturia > 1 time per night or hematuria. G (more content not included)... [facility] DORETHA CLEVELAND ([id number]) 1985 F Date Time Provider Department 05/12/20 10:15 AM DELIA BEAL AGGENS1 During your visit today, we recorded the following information about you: Pulse Blood pressure Weight Height 75/minute 122/80 116.6 kg 1.727 m Yvette Lockwood CMA 05/12/2020 10:55 AM Signed REVIEW ULTRASOUND Delia Beal MD 05/12/2020 11:35 AM Signed Office will call with date and time for HIDA scan Delia Beal MD 06/04/2020 7:00 PM Signed Patient referred by: Naldo Hitchcock MD [address] [id number] Patient presents with: Follow Up: S/P ULTRASOUND HPI: 35-year-old female here to go over the results of her ultrasound and HIDA scan. She states that she has pain in the right upper quadrant and also shortness of breath. This may be related to food. She has no nausea or vomiting. She has no diarrhea or constipation. She states this is different from her asthma attacks that she has had in the past. PAST MEDICAL HISTORY Diagnosis Date - Asthma - Chronic lower back pain 08/10/2012 Weight loss and strengthening help control. - DDD (degenerative disc disease), lumbar 08/08/2015 - Family history of early CAD 07/12/2019 - KALI (generalized anxiety disorder) 01/08/2020 - History of microdiscectomy 07/09/2015 - Mild intermittent asthma without complication 03/25/2016 - Obesity, Class I, BMI 30-34.9 04/12/2019 PAST SURGICAL HISTORY Procedure Laterality Date - PAST SURGICAL HISTORY OF 2013 microdiscectomy; Dr. Long - PAST SURGICAL HISTORY OF 03/2015 tubal ligation - PAST SURGICAL HISTORY OF 2018 Vaginal Hyst, bilateral salpingectomy, left oophorectomc FAMILY HISTORY Problem Relation Age of Onset - Breast Cancer Mother - Coronary Artery Disease Paternal Grandfather - Heart Attack Paternal Grandfather first occurred around age 50 - Diabetes Maternal Grandfather - Diabetes Father - Thyroid Maternal Uncle Social History Tobacco Use - Smoking status: Former Smoker Packs/day: 1.00 Years: 9.00 Pack years: 9.00 Types: Cigarettes Quit date: 2013 Years since quittin.2 - Smokeless tobacco: Never Used Vaping Use - Vaping Use: Never used Substance Use Topics - Alcohol use: Yes Comment: social (1 or 2 glasses of wine) - Drug use: No Current Outpatient Medications Medication Sig - fluticasone-vilanterol (BREO ELLIPTA) 200-25 mcg/dose inhaler Inhale 1 Inhalation as instructed once daily. - elagolix (ORILISSA) 150 mg tab Take 1 tablet by mouth once daily. Per PATIENT CARE - sertraline (ZOLOFT) 50 mg tablet 1/2 a tablet by mouth once a day for 10 days then go to one tablet daily - albuterol HFA (PROVENTIL HFA) 90 mcg/actuation inhaler Inhale 1-2 Puffs as instructed four times daily as needed for Wheezing/Shortness of Breath. No current facility-administered medications for this visit. ALLERGIES Allergen Reactions - Medroxyprogesterone Other: See Comments - Depo-Provera Contra* Hives - Contrast Dye [Iodin* Vomiting REVIEW OF SYSTEMS: GENERAL: No weight loss, malaise or fevers GI: Negative for vomiting, diarrhea, constipation and signs of jaundice Positive for abdominal pain RUQ and nausea PHYSICAL EXAM: BP 122/80 Pulse 75 Ht 5' 8 (1.73m) Wt 257 lb (116.6kg) LMP 06/14/2017 BMI 39.09 kg/(m2). GENERAL APPEARANCE: Well appearing, alert, in no acute distress, well-hydrated, well nourished.. ABDOMEN: Abdomen is soft. There is some tenderness palpation the right upper quadrant. There is no rebound or guarding. NEURO: Alert, oriented x3, no asterixis, speech clear and articulate and MONTERROSO DATA: Diagnostic tests reviewed for today's visit: Most recent labs Most recent imaging I spent a total of 30 minutes on the date of the service which included preparing to see the patient, [id number] patient care and communicating results to the patient/family/caregiv er. .Greater than 50% of the direct patient contact time was spent in counseling or coordination of care. Medical Decision Making ASSESSMENT / PLAN 1. Right upper quadrant pain I reviewed her imaging this shows no evidence of findings of gallstones however she may be suffering from biliary colic. I would get a HIDA scan to better assess this. If her HIDA scan proves to show evidence of chronic cholecystitis she may benefit from a laparoscopic cholecystectomy. I will obtain a HIDA scan and have her follow-up after this. - [place] HEPATOBILIARY W EF AND/OR RX; Future Delia Beal MD Please Note: This office note has been created using [employer], a speech recognition software program, and may contain errors including punctuation, grammar, spelling, gender, and inappropriate words or phrases that pertain to the sytem. Referring Provider: NALDO HITCHCOCK [[id number]] Allergies As of Date: 05/12/2020 Noted Allergy Reacti (more content not included)... Normal [facility] Phone Msgon 01-01-2020 Phone Msg - From: Deirdre Ferris MA To: SG Precert Pool; Sent: 11/27/2019 13:23:43 EDT PA NEEDED FOR : ORILISSA 150MG TABS LOZA:[id number] please see chart, this has been taken care of. Normal [facility] Phone Msgon 12-10-2019 Phone Msg - From: Rocky Valencia MA To: LIS KIDD DO, FACOG; Sent: 12/04/2019 09:30:22 EDT Subject: pt has question about new insurance and meds she has been on pt calling states she was prescribed orilissa 150 mg once a day and her insurance is not covering it, pt states she now has new insurance [employer]. the new insurance wants pt to try something else. the pharmacy told pt that the dr office needs to call, pt wants to know if there was a the nurse can the insurance or if the office has samples to give pt until her follow up appt? pt appt is 12/20/2019 pt new insurance information - [facility] [place] [id number] provider number: [phone] pt phone is [phone] From: ANEGLIC LUQUE MD, FACOG To: Judy Vera RN; Sent: 12/04/2019 09:36:02 EDT Subject: FW: pt has question about new insurance and meds she has been on Priorauth started Prior auth approved until 05/09/20 HENRY [id number] LM on pt voicemail Normal [facility] Phone Msgon 10-16-2019 Phone Msg - From: Judy Vera RN To: Judy Vera RN; Sent: 10/16/2019 09:26:55 EDT Pt notified of MyRisk results- Notified that the recommendation is to get evaluation with the [facility] d/t increased lifetime breast cancer risk Normal [facility] AMB Physician Progress No johnnie 09-20-2019 AMB Physician Progress Note Chief Complaint New pt annual and have some questions about endometriosis. Had a LAVH History of Present Illness Annual-?? s/p LAVH for pain and endometriosis had endometrioma left one ovary, R ight ovary still there has not been on anything since surgery discussed treatment of endo very short of breath- MRI and multiple tests, PFT's all normal she has appt with pulmonology surgeon was Nael= [place] endometrioma during surgery dyspareunia+ use to be cross fit now can't do any exercise gets sob when having a conversation she has done alot of reading online and thinks this is endometriosis of her diaphragm that online it says that would affect the function of her u/s- we discussed endo shouldn't effect the function of diaphragm but def can trigger pain-her symtpoms are not consistent with pain options progesterone Jens corley discussed menopause treats endo and the slight chance her SOB symptoms are endometriosis this should help u/s to check ovary Repeat myRisk as done 7 years ago mom had breast cancer Review of Systems Constitutional: Denies chills, denies fever, no weight gain/loss, energized Eyes: no blurry vision, no double vision, normal conjunctiva Cardiovascular: denies angina, denies chest pain, denies palpitations Respiratory: denies difficulty breathing, denies chest tightness, denies cough Gastrointestinal: denies abdominal pain, denies diarrhea, denies dysphagia, denies nausea, denies vomiting Genitourinary: see HPI for details Musculoskeletal: denies arthralgias, denies muscle aches, denies paresthesia Skin: denies hives, denies rashes, denies sores Psychologic: denies anxiety, denies hallucinations, denies agitation Physical Exam Vitals & Measurements No Vital Signs available for this visit. Depression Screening Scores Initial Depression Screen Score: 0 (09/16/19 13:20:00) Fall Risk Assessment Is the patient ambulatory (mobile): Yes (09/16/19 13:20:00) Have you had a fall within the past: No (09/16/19 13:20:00) Have you had 2 or more falls in the past: No (09/16/19 13:20:00) Constitutional: Appears appropriate for age, non-toxic, and comfortable. No signs of apparent distress present. Speech is clear and appropriate. Awake and oriented x3. Stand comfortably erect. Patient is cooperative. VSS Eyes: Full range of extra-ocular motion. Conjunctivae clear. Neck: supple and no thyromegaly Respiratory: Chest expansion is adequate bilaterally. Lungs Clear Cardiovascular: Rate is regular and rhythm, normal S1S2 Abdomen: Soft and Non-tender, Non distended, no pain illicited on exam Musculoskeletal: Walks with a normal gait. Motor strength is intact Ext: No C/C/E Skin: Warm and dry with no evidence of unusual rashes or suspicious lesions. Neurological: Alert and oriented x 3. Mood is normal. Breast exam: normal bilateral breast tissue, no skin changes no masses and no nipple discharge Pelvic Exam: Ext Gen: normal Vulva anatomy no rash Perineum: no lesions and intact Vagina: no cystocele or rectocele vaginal mucosa healthy pink cervix: absent Uterus: absent adnexa: NT and no masses Pelvic muscles: normal muscle tauntness/support no studding palpable Lab Results Last Months Labs No qualifying data available. Assessment/Plan 1. Well woman exam Z01.419 2. S/P hysterectomy Z90.710 3. Endometriosis N80.9 Orilissa 4. Family history of breast cancer Z80.3 repeat Myrisk 5. Dyspareunia in female N94.10 u/s to check ovaries 6. SOB (shortness of breath) R06.02 keep appt with Pulmonoogy incase orillisa doesn't work Problem List/Past Medical History Ongoing Asthma BRCA gene mutation negative Dyspareunia in female Endometriosis Family history of breast cancer S/P hysterectomy SOB (shortness of breath) Historical Procedure/Surgical History [facility] LSO for endometriosis: 2019 Last pap negative: 2018 Benign tumor removed for scalp: 2016 BTL: 2015 Medications Orilissa 150 mg oral tablet, 150 mg= 1 tabs, ORAL, DAILY, 1 refills sertraline 50 mg oral tablet Allergies Depo-Provera Contraceptive (Hives) iodinated radiocontrast dyes (vomiting) Social History Alcohol Current, 08/15/2019 Sexual Sexually active: Yes. Other contraceptive use: Hyst., 08/15/2019 Substance Abuse - Denies Substance Abuse, 08/15/2019 Tobacco Former smoker, quit more than 30 days ago Tobacco Use:., 08/15/2019 Family History Breast cancer..: Mother (Dx at 47). Diabetes mellitus: Grandfather. Heart attack....: Grandfather. . Health Maintenance Pending (in the next year) Due Influenza Vaccine due 09/20/19 and every MMR Vaccine Dose 1 due 09/20/19 One-time only MMR Vaccine Dose 1 due 09/20/19 One-time only Tetanus Vaccine due 09/20/19 and every 10 years Tetanus Vaccine due 09/20/19 and every 10 years Varicella Vaccine Dose 1 due 09/20/19 One-time only Varicella Vaccine Dose 1 due 09/20/19 One-time only Satisfied (in the past 1 year) There are no satisfied recommendations within the defined date range Normal [facility] Troponin Ion 04-12-2019 Troponin I.cardiac [Mass/Vol] ng/mL Normal 0.015-0.045 [facility] Comment on above: Performed By: #### E RTRP #### [address] [address] NM LUNG VENT / PERF VQon NM LUNG VENT / PERF VQ * * *Final Report* * * DATE OF EXAM: Apr 11 2019 10:37PM AKN [id number] - NM LUNG VENT / PERF VQ / PROCEDURE REASON: PE suspected, high pretest prob * * * * Physician Interpretation * * * * NM LUNG VENT / PERF VQ Indication: PE suspected, high pretest prob Techniques: 29.5 mCI Technetium 99m DTPA aerosol. 4.9 mCi Technetium 99m MAA intravenously. COMPARISON: Chest radiograph dated 04/11/2019, 2135 hours Findings: There is uniform distribution of the radiopharmaceutical throughout both lungs in the perfusion phase of the examination. There is no ventilation/perfusion mismatch. IMPRESSION: LOW PROBABILITY FOR PULMONARY THROMBOEMBOLISM Toe Trimmer: [facility] Transcribe Date/Time: Apr 11 2019 11:30P Dictated by : DAYAN STOCKTON MD This examination was interpreted and the report reviewed and electronically signed by: DAYAN STOCKTON MD on Apr 11 2019 11:32PM EST Normal [facility] TSH, 3rd generationon 2019 TSH, 3rd generation 5.150 uIU/mL High 0.358-3.740 [facility] Comment on above: Performed By: #### H CGUR #### [address] [address] Troponin Ion 04-12-2019 Troponin I.cardiac [Mass/Vol] ng/mL Normal 0.015-0.045 [facility] Comment on above: Performed By: #### T ROP #### [facility] [address] [place] [address] Comprehensive Panelon 2019 ALP [Catalytic activity/Vol] 70 U/L Normal 45-117 [facility] Comment on above: Performed By: #### P 14 #### [facility] [address] [place], [place] [address] Bilirubin [Mass/Vol] 0.5 mg/dL Normal 0.2-1.0 [facility] Comment on above: Performed By: #### P 14 #### [facility] [address] [place] [address] Protein [Mass/Vol] 7.0 g/dL Normal 6.4-8.2 [facility] Comment on above: Performed By: #### P 14 #### [facility] [address] [address] ALT [Catalytic activity/Vol] 18 U/L Normal 12-78 [facility] Comment on above: Performed By: #### P 14 #### [facility] [address] [place] [address] AST [Catalytic activity/Vol] 14 U/L Low 15-37 [facility] Comment on above: Performed By: #### P 14 #### [facility] [address] [place] [address] Creatinine [Mass/Vol] 0.66 mg/dL Normal 0.51-0.95 [facility] Comment on above: Result Comment: Use of this assay is not recommended for patients undergoing treatment with phenindione, due to the potential for falsely depressed results. Performed By: #### P 14 #### [facility] [address] [place], [place] [address] Albumin [Mass/Vol] 3.8 g/dL Normal 3.4-5.0 [facility] Comment on above: Performed By: #### P 14 #### [facility] [address] [place] [address] Anion gap [Moles/Vol] 8 mmol/L Normal 8-16 [facility] Comment on above: Performed By: #### P 14 #### [facility] [address] [place], [place] [address] CO2 [Moles/Vol] 26 mmol/L Normal 21-32 [facility] Comment on above: Performed By: #### P 14 #### [facility] [address] [place], [place] [address] Glucose [Mass/Vol] 107 mg/dL High 70-99 [facility] Comment on above: Performed By: #### P 14 #### [facility] [address] [place], [place] [address] Urea nitrogen [Mass/Vol] 12 mg/dL Normal 7-18 [facility] Comment on above: Performed By: #### P 14 #### [facility] [address] [place], [place] [address] Calcium [Mass/Vol] 9.0 mg/dL Normal 8.5-10.1 [facility] Comment on above: Performed By: #### P 14 #### [facility] [address] [place], [place] [address] Chloride [Moles/Vol] 110 mmol/L High 98-107 [facility] Comment on above: Performed By: #### P 14 #### [facility] [address] [place], [place] [address] Potassium [Moles/Vol] 3.9 mmol/L Normal 3.5-5.1 [facility] Comment on above: Performed By: #### P 14 #### [facility] [address] [place], [place] [address] Sodium [Moles/Vol] 140 mmol/L Normal 136-145 [facility] Comment on above: Performed By: #### P 14 #### [facility] [address] [place], [place] [address] D-Dimer Quantitativeon 04-11 D-Dimer, Quant. 280 ng/mL(FEU) Normal <500 [facility] Comment on above: Result Comment: 500 ng/mL FEU is the D-dimer cutoff to exclude DVT (deep vein thrombosis)and PE (pulmonary embolism)in patients with a low pre-test probability. Supplemental Comment: In patients over 50 years with a low Pre-test probability for DVT and/or PE, an age-adjusted D-dimer cutoff can be calculated as [age X 10] ng/mL FEU. For example, a patient of 88 years would have an age-adjusted D-dimer of 880 ng/mL FEU. For patients with a suspected DVT, a D-dimer level below 500 ng/mL FEU has a negative predictive value of >=99.0%, a sensitivity of >=97.0% and a specificity of >=35.8%. Performed By: #### D DMRN #### [place] [address] ECU Troponin Ion 04-11-2019 Troponin I.cardiac [Mass/Vol] ng/mL Normal 0.015-0.045 [facility] Comment on above: Performed By: #### E RTRP #### [place] [address] Hemogram/Diffon 04-11-2019 Abs Immature Grans 0.02 thou/cmm Normal 0.00-0.05 [facility] Comment on above: Performed By: #### C BCD1 #### [place] [address] Abs Neut (ANC) 3.52 thou/cmm Normal 1.56-6.[address] [facility] Comment on above: Performed By: #### C BCD1 #### [place] [address] Abs. Baso 0.01 thou/cmm Normal 0.01-0.08 [facility] Comment on above: Performed By: #### C BCD1 #### [place] [address] Abs. Beaver 0.30 thou/cmm Normal 0.27-0.70 [facility] Comment on above: Performed By: #### C BCD1 #### [place] [address] Basophils/100 WBC (Bld) 0.2 % Normal [facility] Comment on above: Performed By: #### C BCD1 #### [place] [address] Eosinophils (Bld) [#/Vol] 0.40 thou/cmm High 0.00-0.31 [facility] Comment on above: Performed By: #### C BCD1 #### [facility] [address] [address] Eosinophils/100 WBC (Bld) 6.2 % Normal [facility] Comment on above: Performed By: #### C BCD1 #### [facility] [address] [place] [address] Erythrocyte distribution width (RBC) [Ratio] 12.4 % Normal 11.7-14.4 [facility] Comment on above: Performed By: #### C BCD1 #### [facility] [address] [place] [address] Hematocrit (Bld) [Volume fraction] 40.5 % Normal 34.1-44.9 [facility] Comment on above: Performed By: #### C BCD1 #### [place] [address] Hemoglobin (Bld) [Mass/Vol] 14.3 g/dL Normal 11.2-15.7 [facility] Comment on above: Performed By: #### C BCD1 #### [place] [address] Immature Grans 0.30 % Normal [facility] Comment on above: Performed By: #### C BCD1 #### [place] [address] Lymphocytes (Bld) [#/Vol] 2.21 thou/cmm Normal 1.18-3.74 [facility] Comment on above: Performed By: #### C BCD1 #### [facility] [address] [place] [address] Lymphocytes/100 WBC (Bld) 34.2 % Normal [facility] Comment on above: Performed By: #### C BCD1 #### [facility] [address] [place] [address] MCH (RBC) [Entitic mass] 31.0 pg Normal 25.6-32.2 [facility] Comment on above: Performed By: #### C BCD1 #### [facility] [address] [place], [place] [address] MCHC (RBC) [Mass/Vol] 35.3 % High 31.6-34.8 [facility] Comment on above: Performed By: #### C BCD1 #### [facility] [address] [place], [place] [address] MCV (RBC) [Entitic vol] 87.7 fL Normal 79.4-94.8 [facility] Comment on above: Performed By: #### C BCD1 #### [facility] [address] [place] [address] Monocytes/100 WBC (Bld) 4.6 % Normal [facility] Comment on above: Performed By: #### C BCD1 #### [facility] [address] [place] [address] Platelet mean volume (Bld) [Entitic vol] 9.4 fL Normal 9.4-12.3 [facility] Comment on above: Performed By: #### C BCD1 #### [facility] [address] [place] [address] Platelets (Bld) [#/Vol] 317 thou/cmm Normal 182-369 [facility] Comment on above: Performed By: #### C BCD1 #### [facility] [address] [place] [address] RBC (Bld) [#/Vol] 4.62 mil/cmm Normal 3.93-5.22 [facility] Comment on above: Performed By: #### C BCD1 #### [facility] [address] [place] [address] RDW SD 39.6 fl Normal 36.4-46.3 [facility] Comment on above: Performed By: #### C BCD1 #### [facility] [address] [address] Seg Neutrophil 54.5 % Normal [facility] Comment on above: Performed By: #### C BCD1 #### [facility] [address] [place] [address] WBC (Bld) [#/Vol] 6.46 thou/cmm Normal 3.98-10.04 [facility] Comment on above: Performed By: #### C BCD1 #### [facility] [address] [place], [place] [address] MDRD GFRon 04-11-2019 GFR/1.73 sq M predicted among non-blacks MDRD (S/P/Bld) [Vol rate/Area] mL/min/{1.73_m2} Normal >60mL/min/1. 73m2 [facility] Comment on above: Result Comment: If t he patient is , multiply the result by 1.210. Performed By: #### G FR #### [facility] [address] [place], [place] [address] Urine HCG, Qual.on 0 Beta HCG ( test) Ql (U) Negative Normal Negative [facility] Comment on above: Performed By: #### H CGUR #### [place] [id number] Specific [place], Ur 1.023 Normal 1.005-1.030 [facility] Comment on above: Performed By: #### H CGUR #### [facility] [address] [place], [place] [address] XR CHEST 1V FRONTALon 2019 XR CHEST 1V FRONTAL * * *Final Report* * * DATE OF EXAM: Apr 11 2019 9:43PM AKX [id number] - XR CHEST 1V FRONTAL / PROCEDURE REASON: Shortness of breath * * * * Physician Interpretation * * * * CHEST RADIOGRAPH: AP view of the chest. Exam Date/Time: 04/11/2019 9:43 PM Indication: Shortness of breath Comparison: Chest x-ray 04/09/2019 RESULTS: Lines, Tubes, and Devices: None Lungs and Pleura: The lungs are clear. No pleural effusion or pneumothorax. Cardiomediastinal silhouette: The mediastinal and cardiac silhouette are normal in size and contour. Other: Mild thoracic dextroscoliosis. IMPRESSION: No radiographic evidence of acute cardiopulmonary abnormality. Toe Trimmer: JAVIER Transcribe Date/Time: Apr 11 2019 9:47P Dictated by : MILA VALLEJO MD This examination was interpreted and the report reviewed and electronically signed by: MILA VALLEJO MD on Apr 11 2019 9:48PM EST Normal [facility] XR CHEST 2 VIEWSon 9 XR CHEST 2 VIEWS ORIGINAL XR CHEST 2 VIEWS CLINICAL STATEMENT: RIGHT anterior chest wall pain. Difficulty breathing. COMPARISON: None FINDINGS: The cardiomediastinal contours are within normal limits. There is no consolidation, vascular congestion, pleural effusion, or appreciable pneumothorax. The visualized osseous structures are intact. IMPRESSION: No acute cardiopulmonary abnormality. I have personally reviewed the images of this examination and agree with the resident's findings and interpretation Interpreted By: Jorge Oleary MD Preliminary Report By: Jorge Quintana DO Electronically Signed By: Jorge Oleary MD Dictated Date: 06/03/2018 2:53:01 PM Prelim Date: 06/03/2018 2:53:58 PM Sign Date: 06/03/2018 3:22:27 PM Normal [facility] ([place]) Office Visit: postop surgery 09/15/1610-06-2016 Fall risk assessment No Invalid Interpretation Code [facility] Work Phone: [phone] Protein mass conc Done Invalid Interpretation Code [facility] Work Phone: [phone] Protein mass conc no Invalid Interpretation Code [facility] Work Phone: [phone] Tobacco smoking status NHIS Never Invalid Interpretation Code [facility] Work Phone: [phone] Tobacco smoking status NHIS Former smoker Invalid Interpretation Code [facility] Work Phone: Office Visit: postop surgery 09/15/1609-20-2016 Alcoholism counseling (procedure) no Invalid Interpretation Code [facility] Work Phone: Dietary management education, guidance, and counseling (procedure) yes Invalid Interpretation Code [facility] Work Phone: Documentation of current medications (procedure) Done Invalid Interpretation Code [facility] Work Phone: Fall risk assessment No Invalid Interpretation Code [facility] Work Phone: Protein mass conc Done [facility] Work Phone: Protein mass conc no [facility] Work Phone: Tobacco smoking status NHIS Never Invalid Interpretation Code [facility] Work Phone: Tobacco smoking status NHIS Former smoker [facility] Work Phone: [phone] Tobacco use [facility] Former smoker Invalid Interpretation Code [facility] Work Phone: 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 Tobacco use [facility] Former smoker Invalid Interpretation Code [facility] Work Phone: Office Visit: evaluation nod ular masses top of scalpon 08-22-2016 Alcoholism counseling (procedure) no Invalid Interpretation Code [facility] Work Phone: [phone] Dietary management education, guidance, and counseling (procedure) yes Invalid Interpretation Code [facility] Work Phone: [phone] Documentation of current medications (procedure) Done Invalid Interpretation Code [facility] Work Phone: [phone] Fall risk assessment No Invalid Interpretation Code [facility] Work Phone: [phone] Tobacco smoking status NHIS Never Invalid Interpretation Code [facility] Work Phone: [phone] Tobacco use [facility] Former smoker Invalid Interpretation Code [facility] Work Phone: [phone] Vital Signs Date Time Vital Sign Value Performing Clinician Facility 06-22-2024 08:05-0400 Body mass index (BMI) [Ratio] 31.78 kg/m2 Zheng Wilson MD Work Phone: [facility] 06-22-2024 08:05-0400 Body weight 94.8 kg Zheng Wilson MD Work Phone: [facility] 06-22-2024 08:05-0400 Diastolic blood pressure 70 mm[Hg] Zheng Wilson MD Work Phone: [facility] 06-22-2024 08:05-0400 Heart rate 80 /min Zheng Wilson MD Work Phone: [facility] 06-22-2024 08:05-0400 Respiratory rate 16 /min Zheng Wilson MD Work Phone: [facility] 06-22-2024 08:05-0400 Systolic blood pressure 122 mm[Hg] Zheng Wilson MD Work Phone: [facility] 06-13-2023 09:08-0400 Body height 172.7 cm Lola Bernstein MD Work Phone: [facility] 06-13-2023 09:08-0400 Body mass index (BMI) [Ratio] 35.82 kg/m2 Lola Bernstein MD Work Phone: [facility] 06-13-2023 09:08-0400 Body temperature 98.71 [degF] Lola Bernstein MD Work Phone: [facility] 06-13-2023 09:08-0400 Body weight 106.87 kg Lola Bernstein MD Work Phone: [facility] 06-13-2023 09:08-0400 Diastolic blood pressure 78 mm[Hg] Lola Bernstein MD Work Phone: [facility] 06-13-2023 09:08-0400 Heart rate 80 /min Lola Bernstein MD Work Phone: [facility] 06-13-2023 09:08-0400 SaO2% (BldA) [Mass fraction] 97 % Lola Bernstein MD Work Phone: [facility] 06-13-2023 09:08-0400 Systolic blood pressure 112 mm[Hg] Lola Bernstein MD Work Phone: [facility] 06-08-2023 17:51-0400 Body temperature 98.01 [degF] Darrius Kulow PA-C Work Phone: [facility] 06-08-2023 17:51-0400 Diastolic blood pressure 89 mm[Hg] Darrius Kulow PA-C Work Phone: [facility] 06-08-2023 17:51-0400 Heart rate 79 /min Darrius Kulow PA-C Work Phone: [facility] 06-08-2023 17:51-0400 Respiratory rate 18 /min Darrius Kulow PA-C Work Phone: [facility] 06-08-2023 17:51-0400 SaO2% (BldA) [Mass fraction] 99 % Darrius Aranda PA-C Work Phone: [facility] 06-08-2023 17:51-0400 Systolic blood pressure 133 mm[Hg] Darrius Aranda PA-C Work Phone: [facility] 04-12-2023 18:50-0500 Body weight 108.86 kg Zheng Wilson MD Work Phone: [facility] 04-12-2023 18:50-0500 Diastolic blood pressure 72 mm[Hg] Zheng Wilson MD Work Phone: [facility] 04-12-2023 18:50-0500 Heart rate 68 /min Zheng Wilson MD Work Phone: [facility] 04-12-2023 18:50-0500 Respiratory rate 16 /min Zheng Wilson MD Work Phone: [facility] 04-12-2023 18:50-0500 Systolic blood pressure 118 mm[Hg] Zheng Wilson MD Work Phone: [facility] 03-14-2023 14:16-0500 Body weight 107.6 kg Claudette Soto MD Work Phone: [facility] 03-14-2023 14:16-0500 Diastolic blood pressure 89 mm[Hg] Claudette Soto MD Work Phone: [facility] 03-14-2023 14:16-0500 Heart rate 78 /min Claudette Soto MD Work Phone: [facility] 03-14-2023 14:16-0500 Systolic blood pressure 145 mm[Hg] Claudette Soto MD Work Phone: [facility] 02-08-2023 18:42-0500 Body weight 108.41 kg Zheng Wilson MD Work Phone: [facility] 02-08-2023 18:42-0500 Diastolic blood pressure 82 mm[Hg] Zheng Wilson MD Work Phone: [facility] 02-08-2023 18:42-0500 Heart rate 70 /min Zheng Wilson MD Work Phone: [facility] 02-08-2023 18:42-0500 Respiratory rate 18 /min Zheng Wilson MD Work Phone: [facility] 02-08-2023 18:42-0500 Systolic blood pressure 126 mm[Hg] Zheng Wilson MD Work Phone: [facility] 01-14-2023 08:17-0500 Body weight 108.32 kg Ulises Booker MD Work Phone: [facility] 01-14-2023 08:17-0500 Diastolic blood pressure 68 mm[Hg] Ulises Booker MD Work Phone: [facility] 01-14-2023 08:17-0500 Heart rate 76 /min Ulises Booker MD Work Phone: [facility] 01-14-2023 08:17-0500 Respiratory rate 16 /min Ulises Booker MD Work Phone: [facility] 01-14-2023 08:17-0500 Systolic blood pressure 120 mm[Hg] Ulises Booker MD Work Phone: [facility] 09-26-2022 13:35-0400 Body height 171.5 cm Zheng Wilson MD Work Phone: [facility] 09-26-2022 13:35-0400 Body weight 106.59 kg Zheng Wilson MD Work Phone: [facility] 09-26-2022 13:35-0400 Diastolic blood pressure 84 mm[Hg] Zheng Wilson MD Work Phone: [facility] 09-26-2022 13:35-0400 Heart rate 70 /min Zheng Wilson MD Work Phone: [facility] 09-26-2022 13:35-0400 Respiratory rate 16 /min Zheng Wilson MD Work Phone: [facility] 09-26-2022 13:35-0400 Systolic blood pressure 122 mm[Hg] Zheng Wilson MD Work Phone: [facility] 06-12-2022 15:50-0400 Body height 172.7 cm Vicenta Kiehnau PA-C Work Phone: [facility] 06-12-2022 15:50-0400 Body temperature 97.81 [degF] Vicenta Kiehnau PA-C Work Phone: [facility] 06-12-2022 15:50-0400 Body weight 107.46 kg Vicenta Kiehnau PA-C Work Phone: [facility] 06-12-2022 15:50-0400 Diastolic blood pressure 76 mm[Hg] Vicenta Kiehnau PA-C Work Phone: [facility] 06-12-2022 15:50-0400 Heart rate 85 /min Vicenta Kiehnau PA-C Work Phone: [facility] 06-12-2022 15:50-0400 Respiratory rate 16 /min Vicenta Kiehnau PA-C Work Phone: [facility] 06-12-2022 15:50-0400 SaO2% (BldA) [Mass fraction] 96 % Vicenta Zackehnau PA-C Work Phone: [facility] 06-12-2022 15:50-0400 Systolic blood pressure 122 mm[Hg] Vicenta Dixonehnau PA-C Work Phone: [facility] 10-06-2016 14:00-0400 BMI (Body Mass Index) 32.89 kg/m2 [facility] Work Phone: 10-06-2016 14:00-0400 Body Temperature 97.7 [degF] [facility] Work Phone: 10-06-2016 14:00-0400 BP Diastolic 78 mm[Hg] [facility] Work Phone: 10-06-2016 14:00-0400 BP Systolic 115 mm[Hg] Gene Tan MD [facility] Work Phone: 10-06-2016 14:00-0400 BSA (Body Surface Area) 2.2 m2 Gene Tan MD [facility] Work Phone: 10-06-2016 14:00-0400 Height 177.16 cm Gene Tan MD [facility] Work Phone: 10-06-2016 14:00-0400 Pulse (Heart Rate) 75 /min Gene Tan MD [facility] Work Phone: 10-06-2016 14:00-0400 Respiratory Rate 16 /min Gene Tan MD [facility] Work Phone: 10-06-2016 14:00-0400 Weight 103.24 kg Gene Tan MD [facility] Work Phone: 09-20-2016 14:33-0400 BMI (Body Mass Index) 32.89 kg/m2 Gene Tan MD [facility] Work Phone: 09-20-2016 14:33-0400 Body Temperature 98.2 [degF] Gene Tan MD [facility] Work Phone: 09-20-2016 14:33-0400 BP Diastolic 81 mm[Hg] Gene Tan MD [facility] Work Phone: 09-20-2016 14:33-0400 BP Systolic 123 mm[Hg] Gene Tan MD [facility] Work Phone: 09-20-2016 14:33-0400 Height 177.16 cm Gene Tan MD [facility] Work Phone: 09-20-2016 14:33-0400 Pulse (Heart Rate) 75 /min Gene Tan MD [facility] Work Phone: 09-20-2016 14:33-0400 Respiratory Rate 16 /min Gene Tan MD [facility] Work Phone: 09-20-2016 14:33-0400 Weight 103.24 kg [facility] Work Phone: 08-22-2016 13:50-0400 BMI (Body Mass Index) 32.66 kg/m2 [facility] Work Phone: 08-22-2016 13:50-0400 Body Temperature 97.9 [degF] [facility] Work Phone: 08-22-2016 13:50-0400 BP Diastolic 77 mm[Hg] [facility] Work Phone: 08-22-2016 13:50-0400 BP Systolic 118 mm[Hg] [facility] Work Phone: 08-22-2016 13:50-0400 BSA (Body Surface Area) 2.19 m2 [facility] Work Phone: 08-22-2016 13:50-0400 Height 177.16 cm [facility] Work Phone: 08-22-2016 13:50-0400 Pulse (Heart Rate) 63 /min [facility] Work Phone: 08-22-2016 13:50-0400 Respiratory Rate 16 /min [facility] Work Phone: 08-22-2016 13:50-0400 Weight 102.51 kg [facility] Work Phone: Encounters Encounter Date Encounter Type Care Provider Facility Start: 06-22-2024 End: 06-22-2024 ambulatory ZHENG WILSON Facility:[facility] Start: 06-22-2024 End: 06-22-2024 Patient encounter procedure Zheng Wilson MD Work Phone: [facility] Comment on above: Paroxysmal sinus tac hycardia (Primary Dx); ADHD (attention deficit hyperactivity disorder), inattentive type; KALI (generalized anxiety disorder) Start: 06-21-2024 End: 06-22-2024 E-mail encounter from caregiver Mesha Mills [facility] Start: 06-21-2024 End: 06-22-2024 Patient encounter procedure Mesha Gene [facility] Comment on above: Monday Appointment Start: 07-14-2023 End: 07-14-2023 ambulatory ZHENG WILSON Facility:[facility] Start: 06-13-2023 End: 06-13-2023 Patient encounter procedure Lola Bernstein MD Work Phone: Endocrinology Comment on above: Elevated cortisol le erick (Primary Dx); Hypoglycemia; Tachycardia; Class 2 obesity with body mass index (BMI) of 35.0 to 35.9 in adult, unspecified obesity type, unspecified whether serious comorbidity present; Fatigue, unspecified type Start: 06-08-2023 End: 06-08-2023 Emergency department patient visit UNKNOWN PROVIDER Facility:[facility] Start: 06-08-2023 End: 06-08-2023 Patient encounter procedure Darrius Aranda PA-C Work Phone: [facility] Comment on above: APPOINTMENT CANCELLE D (Primary Dx) Start: 05-31-2023 ambulatory Zheng martinez MD Work Phone: [facility] Comment on above: CGM Start: 05-26-2023 Telephone encounter Zheng Wilson MD Work Phone: [facility] Comment on above: Results Start: 05-24-2023 ambulatory Zheng martinez MD Work Phone: [facility] Comment on above: Low blood sugar Start: 04-24-2023 [facility] Comment on above: Patient Update (Weig ht Management Navigation) Start: 04-12-2023 End: 04-12-2023 Patient encounter procedure Zheng Wilson MD Work Phone: [facility] Comment on above: Paroxysmal sinus tac hycardia (Primary Dx); Obesity, Class II, BMI 35-39.9 Start: 04-12-2023 Patient encounter status Kaylan Wilson MD Work Phone: [facility] Work Phone: Start: 03-22-2023 End: 03-22-2023 ambulatory Claudette Soto MD Work Phone: Rheumatology Comment on above: Jaw disease (Primary Dx) Start: 03-22-2023 End: 03-22-2023 Telemedicine consultation with patient Claudette Soto MD Work Phone: [facility] Start: 03-16-2023 Telephone encounter Rip Crockett DDS Work Phone: Dentistry Comment on above: Appointment Start: 03-14-2023 End: 03-14-2023 Office outpatient new 60 minutes Claudette Soto MD Work Phone: Rheumatology Comment on above: Jaw disease (Primary Dx); Neck pain; Arthralgia, unspecified joint Start: 02-22-2023 End: 02-22-2023 Subsequent hospital visit by physician [facility] (I-Stat/1.5t) [facility] Start: 02-08-2023 End: 02-08-2023 Patient encounter procedure Zheng Wilson MD Work Phone: [facility] Comment on above: TMJ dysfunction (Valencia adenike Dx); Primary osteoarthritis involving multiple joints Start: 01-14-2023 End: 01-14-2023 Patient encounter procedure Ulises Booker MD Work Phone: [facility] Comment on above: Wellness examination (Primary Dx); Paroxysmal sinus tachycardia; KALI (generalized anxiety disorder); Obesity, Class II, BMI 35-39.9 Start: 01-14-2023 End: 01-14-2023 Patient encounter status Ulises Booker MD Work Phone: [facility] Work Phone: Start: 10-03-2022 ambulatory Zheng Wilson Facility :[facility] Start: 09-27-2022 Telephone encounter Zheng Wilson MD Work Phone: [facility] Comment on above: Results Start: 09-26-2022 End: 09-26-2022 Patient encounter procedure Zheng Wilson MD Work Phone: [facility] [place] Comment on above: Palpitations (Primar y Dx); KALI (generalized anxiety disorder); Memory difficulties; Encounter for lipid screening for cardiovascular disease; Encounter for screening for diabetes mellitus; Fatigue, unspecified type; Anemia, unspecified type Start: 06-12-2022 End: 06-12-2022 Patient encounter procedure Vicenta Thee LENNON Work Phone: [facility] Comment on above: Acute right-sided lo w back pain without sciatica (Primary Dx) Start: 06-03-2018 End: 06-03-2018 Emergency department patient visit LEX CRUZ Facility:[facility] Start: 01-08-2018 End: 01-08-2018 Patient encounter procedure Rj Hodgsonlenin Work Phone: [facility] Comment on above: Other intervertebral disc degeneration, lumbar region (Primary Dx); Low back pain, unspecified back pain laterality, unspecified chronicity, with sciatica presence unspecified Start: 12-22-2017 End: 12-22-2017 Patient encounter Other Other NOTES/RESULTS Start: 12-11-2017 End: 12-11-2017 Patient encounter Other Other NOTES/RESULTS Start: 12-04-2017 End: 12-04-2017 Patient encounter Other Other NOTES/RESULTS Start: 03-25-2016 Patient encounter status Vicenta Fontenotsindy LENNON Work Phone: [facility] Work Phone: Procedures Date Procedure Procedure Detail Performing Clinician Start: 06-22-2024 Ecg routine ecg w/le ast 12 lds i&r only [facility] Provider Start: 02-22-2023 Mri temporomandibular joint [facility] Provider Start: 09-26-2022 Ecg routine ecg w/le ast 12 lds i&r only [facility] Provider Start: 12-22-2017 End: 12-22-2017 MRI (OUTSIDE) Other Other Start: 12-11-2017 End: 12-11-2017 MRI (OUTSIDE) Other Other Start: 12-04-2017 End: 12-04-2017 OUTSIDE RADIOLOGY Other Other Start: 10-06-2016 End: 10-06-2016 Dietary management education, guidance, and counseling Gene Tan MD Start: 10-06-2016 End: 11-28-2016 Follow Up Appt John Tan MD Start: 09-20-2016 End: 09-20-2016 Dietary management education, guidance, and counseling Gene Tan MD Start: 09-20-2016 End: 11-28-2016 Follow Up Appt 2 weeks Gene Tan MD Start: 08-22-2016 End: 09-15-2016 Follow Up Appt John Tan MD Start: 08-22-2016 End: 09-15-2016 Follow Up Appt John Tan MD Plan of Treatment Date Care Activity Detail Author Start: 06-22-2025 Annual PCP Team Door Serviceman tarah Disease Visit Annual PCP Team Chronic Disease Visit [facility] Start: 11-08-2024 End: 11-08-2024 Patient encounter procedure 11/08/2024 7:00 AM EDT Office Visit [facility] [address] [place], [place] [id number] Zheng Wilson MD [address] [place] [address] [id number] Physical Family [facility] Comment on above: Physical Start: 04-12-2024 Annual PCP Team Door Serviceman tarah Disease Visit Annual PCP Team Chronic Disease Visit [facility] Start: 02-09-2024 Annual PCP Team Door Serviceman tarah Disease Visit Annual PCP Team Chronic Disease Visit [facility] Start: 01-15-2024 Annual PCP Team Door Serviceman tarah Disease Visit Annual PCP Team Chronic Disease Visit [facility] Start: 10-22-2023 Covid-19 Vaccine ( season) Covid-19 Vaccine () [facility] Start: 10-22-2023 Covid-19 Vaccine ( season) Covid-19 Vaccine ( season) [facility] Start: 09-27-2023 ANNUAL PCP TEAM FAMILY ASSESSMENT WORKER TARAH DISEASE VISIT ANNUAL PCP TEAM CHRONIC DISEASE VISIT [facility] Start: 06-13-2023 End: 09-12-2023 Cortisol [Mass/volume] in Serum or Plasma --post dose dexamethasone CORTISOL SUPRES POST Lab Routine Elevated cortisol level Class 2 obesity with body mass index (BMI) of 35.0 to 35.9 in adult, unspecified obesity type, unspecified whether serious comorbidity present Fatigue, unspecified type Expected: 06/13/2023, Expires: 09/12/2023 [facility] Comment on above: Expected: 06/13/2023 , Expires: 09/12/2023 Start: 06-13-2023 End: 09-12-2023 DEXAMETHASONE DEXAMETHASONE Lab Routine Elevated cortisol level Class 2 obesity with body mass index (BMI) of 35.0 to 35.9 in adult, unspecified obesity type, unspecified whether serious comorbidity present Fatigue, unspecified type Expected: 06/13/2023, Expires: 09/12/2023 [facility] Work Phone: Comment on above: Expected: 06/13/2023 , Expires: 09/12/2023 Start: 05-24-2023 End: 08-23-2023 Corticotropin [Mass/volume] in Plasma ACTH BLD Lab Routine Paroxysmal sinus tachycardia Hypoglycemia Expected: 05/24/2023, Expires: 08/23/2023 [facility] Work Phone: Comment on above: Expected: 05/24/2023 , Expires: 08/23/2023 Start: 05-24-2023 End: 08-23-2023 Cortisol [Mass/volume] in Serum or Plasma CORTISOL BLD Lab Routine Paroxysmal sinus tachycardia Hypoglycemia Expected: 05/24/2023, Expires: 08/23/2023 [facility] Work Phone: Comment on above: Expected: 05/24/2023 , Expires: 08/23/2023 Start: 05-24-2023 End: 08-23-2023 Somatostatin [Mass/volume] in Plasma GROWTH HORMONE Lab Routine Paroxysmal sinus tachycardia Hypoglycemia Expected: 05/24/2023, Expires: 08/23/2023 [facility] Work Phone: Comment on above: Expected: 05/24/2023 , Expires: 08/23/2023 Start: 05-24-2023 End: 08-23-2023 Thyrotropin [Units/volume] in Serum or Plasma TSH BLD Lab Routine Paroxysmal sinus tachycardia Hypoglycemia Expected: 05/24/2023, Expires: 08/23/2023 [facility] Work Phone: Comment on above: Expected: 05/24/2023 , Expires: 08/23/2023 Start: 02-20-2023 Behavioral Health Screening Behavioral Health Screening [facility] Start: 02-20-2023 Depression Assessment Depression Ass essment [facility] Start: 01-22-2023 HPV TESTING HPV TESTING [facility] Start: 01-22-2023 PAP TESTING PAP TESTING [facility] Start: 01-22-2023 Screening for malign ant neoplasm of cervix [facility] Start: 10-21-2022 Covid-19 Vaccine () Covid-19 Vaccine () [facility] Start: 09-26-2022 End: 11-26-2022 Cobalamin (Vitamin B12) [Mass/volume] in Serum or Plasma [facility] Work Phone: Comment on above: Expected: 09/26/2022 , Expires: 11/26/2022 Start: 09-26-2022 End: 11-26-2022 Comprehensive metabolic 2000 panel - Serum or Plasma [facility] Work Phone: Comment on above: Expected: 09/26/2022 , Expires: 11/26/2022 Start: 09-26-2022 End: 11-26-2022 Ferritin [Mass/volume] in Serum or Plasma [facility] Work Phone: Comment on above: Expected: 09/26/2022 , Expires: 11/26/2022 Start: 09-26-2022 End: 11-26-2022 Folate [Mass/volume] in Serum or Plasma [facility] Work Phone: Comment on above: Expected: 09/26/2022 , Expires: 11/26/2022 Start: 09-26-2022 End: 11-26-2022 Hemoglobin A1c in Blood [facility] Work Phone: Comment on above: Expected: 09/26/2022 , Expires: 11/26/2022 Start: 09-26-2022 End: 11-26-2022 Iron and Iron binding capacity panel - Serum or Plasma [facility] Work Phone: Comment on above: Expected: 09/26/2022 , Expires: 11/26/2022 Start: 09-26-2022 End: 11-26-2022 LIPID PANEL, NONFASTING [facility] Work Phone: Comment on above: Expected: 09/26/2022 , Expires: 11/26/2022 Start: 09-26-2022 End: 11-26-2022 SYPHILIS TOTAL W/REFLEX [facility] Work Phone: Comment on above: Expected: 09/26/2022 , Expires: 11/26/2022 Start: 09-26-2022 End: 11-26-2022 Thyrotropin [Units/volume] in Serum or Plasma [facility] Work Phone: Comment on above: Expected: 09/26/2022 , Expires: 11/26/2022 Start: 09-26-2022 End: 11-26-2022 Thyroxine (T4) free [Mass/volume] in Serum or Plasma [facility] Work Phone: Comment on above: Expected: 09/26/2022 , Expires: 11/26/2022 Start: 09-26-2022 End: 11-26-2022 Urinalysis complete panel - Urine [facility] Work Phone: Comment on above: Expected: 09/26/2022 , Expires: 11/26/2022 Start: 02-20-2022 DEPRESSION ASSESSMENT DEPRESSION ASS ESSMENT [facility] Start: 06-08-2021 ANNUAL PCP TEAM FAMILY ASSESSMENT WORKER TARAH DISEASE VISIT ANNUAL PCP TEAM CHRONIC DISEASE VISIT [facility] Start: 01-22-2021 Screening for malign ant neoplasm of cervix Cervical Cancer Screening [facility] Start: 12-31-2020 COVID-19 VACCINE (3 - Pfizer series) COVID-19 VACCINE (3 - Pfizer series) [facility] Start: 01-31-2018 End: 01-31-2018 Ambulatory 01/31/2018 Office Visit Neurologic Surgery Chele Hollingsworth MD, PhD [address] [place] [phone] [facility] Start: 10-21-2017 Influenza vaccination INFLUENZA VACC INE (#1) [facility] Work Phone: Start: 10-06-2016 End: 10-06-2016 Appointment Appointment [facility] Work Phone: Start: 10-06-2016 End: 11-28-2016 Follow Up Appt Other Follow Up Appt Other [facility] Work Phone: Start: 09-20-2016 End: 11-28-2016 Follow Up Appt 2 weeks Follow Up Appt 2 weeks [facility] Work Phone: Start: 09-20-2016 End: 10-04-2016 Follow Up Appt 2 weeks Follow Up Appt 2 weeks [facility] Work Phone: Start: 09-15-2016 End: 09-15-2016 Appointment Appointment [facility] Work Phone: Start: 08-22-2016 End: 09-15-2016 Follow Up Appt Other Follow Up Appt Other [facility] Work Phone: Start: 08-22-2016 End: 08-22-2016 Appointment Appointment [facility] Work Phone: Start: 08-22-2016 End: 09-15-2016 Follow Up Appt Other Follow Up Appt Other [facility] Work Phone: Start: 2007 Screening for malign ant neoplasm of cervix PAP SMEAR DISCUSSION [facility] Work Phone: Start: 2005 Third diphtheria, tetanus and acellular pertussis (DTaP) vaccination TDAP (ADULT) [facility] Work Phone: Start: 2005 Urine microalbumin profile [facility] Start: 02-22-2004 Depression Screening Depression [facility] Start: 02-22-2004 HEPATITIS C SCREENING HEPATITIS C [facility] Start: 02-22-2004 HIV SCREENING HIV SCREENING [facility] Start: 02-22-2004 Tetanus vaccination TETANUS [facility] Work Phone: Start: 1999 HIV screening HIV SCREENING DISCUSSION [facility] Work Phone: Start: 02-22-1992 PNEUMOCOCCAL (1 - PCV) PNEUMOCOCCAL (1 - PCV) [facility] Start: 02-22-1992 Pneumococcal vaccination [facility] Start: 1986 COVID-19 VACCINE (#1) COVID-19 VACCI NE (#1) [facility] Start: 1986 HEPATITIS B (1 of 3 - 3-dose series) HEPATITIS B (1 of 3 - 3-dose series) [facility] End: 09-27-2023 ECG COMPLETE ECG COMPLETE ECG Routine Palpitations 1 Occurrences starting 09/26/2022 until 09/27/2023 [facility] Work Phone: Comment on above: 1 Occurrences starti ng 09/26/2022 until 09/27/2023 ECG COMPLETE ECG COMPLETE ECG 09/26/2022 2:07 PM EDT [facility] ECG COMPLETE [facility] Work Phone: Comment on above: Ordered: 06/22/2024 Hemoglobin.gastroint est inal.lower [Presence] in Stool by Immunoassay FECAL OCCULT BLOOD TEST Lab Routine Fatigue, unspecified type Anemia, unspecified type Ordered: 09/26/2022 [facility] Work Phone: Comment on above: Ordered: 09/26/2022 [facility] Immunizations Immunization Date Immunization Notes Care Provider [facility] 11-05-2020 COVID-19 original vaccine, age 12+ yr, monovalent (PFIZER-BIONTECH - PURPLE TOP) Zheng Wilson MD Work Phone: [facility] 10-15-2020 COVID-19 original vaccine, age 12+ yr, monovalent (PFIZER-BIONTECH - PURPLE TOP) Zheng Wilson MD Work Phone: [facility] 12-03-2018 Seasonal, quadrivale nt, recombinant, injectable influenza vaccine, preservative free Vicenta Kingston PA-C Work Phone: [facility] Payers Date Payer Category Payer [employer] BLUE CARD PPO OOS [id number] 2024 Unknown [id number] 2022 Self-pay 2022 Unknown ANTH BLUE CARD PPO OOS [id number] 2022-Present [phone] [place] [address] PPO [id number] 2022 Unknown [id number] 2018 Unknown [id number] 1986 Unknown [id number] Unknown [id number] Social History Date Type Detail Facility Tobacco smoking stat us MEIS Unknown if ever smoked [facility] Work Phone: Start: 1985 Sex Assigned At Not on file [facility] Work Phone: Start: 06-12-2022 End: 06-22-2024 Tobacco smoking status NHIS Ex-smoker [facility] Start: 2004 End: 02-20-2013 History of tobacco use Current smoker [facility] Start: 2004 End: 02-20-2013 History of tobacco use Cigarette Smoker [facility] Start: 01-25-2020 End: 06-12-2022 Cigarettes smoked current (pack per day) - Reported 1 [facility] Start: 06-12-2022 End: 06-22-2024 Tobacco use and exposure Smokeless tobacco non-user [facility] Start: 06-12-2022 End: 06-22-2024 Alcohol intake Current drinker of alcohol (finding) [facility] Start: 10-25-2011 Alcohol Comment social (1 or 2 glasses of wine) [facility] Start: 01-25-2020 End: 09-26-2022 Tobacco use panel [facility] Adult Depression Screening Assessment 0 [facility] Medical Equipment Procedure Code Equipment Code Equipment Origin al Text Equipment Identifier Dates Use as instructe d- upto four times daily [id number] Start: 06-13-2023 Use as instructe d FOR TESTING- upto four times a day [id number] Start: 06-13-2023 Functional Status Date Assessment Result Facility 04-12-2019 Are you deaf, or do you have serious difficulty hearing No 04/12/2019 3:24 PM Tati Sharma RN No [facility] 04-12-2019 Are you blind, or do you have serious difficulty seeing, even when wearing glasses No 04/12/2019 3:24 PM Tati Sharma RN No [facility] 04-12-2019 Do you have serious difficulty walking or climbing stairs No 04/12/2019 3:24 PM Tati Sharma RN No [facility] 04-12-2019 Do you have difficul ty dressing or bathing No 04/12/2019 3:24 PM Tati Sharma RN No [facility] 04-12-2019 Because of a physica l, mental, or emotional condition, do you have difficulty doing errands alone such as visiting a physician's office or shopping No 04/12/2019 3:24 PM Tati Sharma RN No [facility] Mental Status Date Assessment Result Facility 04-12-2019 Because of a physica l, mental, or emotional condition, do you have serious difficulty concentrating, remembering, or making decisions No 04/12/2019 3:24 PM Tati Sharma, CARMEN No [facility] Clinical Notes 06-04-2020 to 06-22-2024 Telephone Encounter - Mesha Mills MA - 06/22/2024 8:23 AM EDTTelephone Encounter - Mesha Mills MA - 06/22/2024 8:23 AM Zheng Funez MD - 06/22/2024 8:00 AM EDTPatient Instructions Note Date & Type Note Facility 06-22-2024 Telephone encounter Note Patient was seen. Mesha Mills MA [facility] 06-22-2024 Miscellaneous Notes Patient was seen. Mesha Mills MA documented in this encounter [facility] 06-22-2024 History of Present illness Narrative Chief Complaint Patient presents with: EKG HPI Doretha Cleveland is a 39 year old female who presents here today for EKG. Patient seeing Psych virtually. Has her on Effexor and Strattera. The Strattera has not helped even though no side affects. Plan is to start a stimulant and with Hx of sinus tachycardia her psychiatrist would like her to get an EKG. Patient has been doing well on the Effexor for her anxiety. Still has the palpitations. More so afternoon and evening. Not increased in frequency. No chest pain. Still gets the shortness of breath at times but not increased. Past medical history, appointments, medications, allergies reviewed. Previous Medical History PAST MEDICAL HISTORY Diagnosis Date Asthma Biliary colic Chronic lower back pain 08/10/2012 Weight loss and strengthening help control. DDD (degenerative disc disease), lumbar 08/08/2015 Endometriosis Family history of early CAD 07/12/2019 KALI (generalized anxiety disorder) 01/08/2020 KALI (generalized anxiety disorder) History of microdiscectomy 07/09/2015 Mild intermittent asthma without complication (HCC) 03/25/2016 Obesity, Class I, BMI 30-34.9 04/12/2019 Obesity, Class II, BMI 35-39.9 04/12/2019 PONV (postoperative nausea and vomiting) Premature beats 10/31/2022 Halter 09/2022: PAC's and PVC's Sinus tachycardia 10/31/2022 Halter 09/2022 Well adult exam 04/12/2023 Last done: 01/14/2023 Previous Surgical History PAST SURGICAL HISTORY Procedure Laterality Date PAST SURGICAL HISTORY OF 2013 microdiscectomy; Dr. Long PAST SURGICAL HISTORY OF 03/2015 tubal ligation PAST SURGICAL HISTORY OF 2018 Vaginal Hyst, bilateral salpingectomy, left oophorectomc for endometriosis. Family History FAMILY HISTORY Problem Relation Age of Onset Breast Cancer Mother Coronary Artery Disease Paternal Grandfather Heart Attack Paternal Grandfather first occurred around age 50 Diabetes Maternal Grandfather Diabetes Father Thyroid Maternal Uncle Patient Allergies ALLERGIES Allergen Reactions Depo-Provera Contra* Hives Medroxyprogesterone Other: See Comments Contrast Dye [Iodin* Vomiting Current Medications Current Outpatient Medications on File Prior to Visit Medication Sig Lancets (ESILLAGETOUCH ULTRASOFT LANCETS) Use as instructed FOR TESTING- upto four times a day blood sugar diagnostic (ONETOUCH ULTRA TEST) test strip Use as instructed- upto four times daily alcohol swabs Upto four times a day for checking sugars dexAMETHasone (DECADRON) 1 mg tablet Take at 11 pm and go for labs the next morning Blood-Glucose Sensor (FREESTYLE KODY 3 SENSOR) efraín Apply new sensor every 14 days Blood-Glucose Meter,Continuous (FREESTYLE KODY 3 READER) [facility] Use to check Blood Sugar four times or more daily propranolol (INDERAL) 10 mg tablet Take 1 tablet by mouth once daily. (Patient not taking: Reported on 06/08/2023) albuterol HFA (PROVENTIL HFA) 90 mcg/actuation inhaler Inhale 1-2 Puffs as instructed four times a day as needed for wheezing/shortness of breath. cyanocobalamin (VITAMIN B-12) 1,000 mcg tab Take 1 tablet by mouth once daily. (Patient not taking: Reported on 06/08/2023) escitalopram oxalate (LEXAPRO) 10 mg tablet Take 10 mg by mouth once daily. Take one tablet daily (Patient not taking: Reported on 06/08/2023) No current facility-administered medications on file prior to visit. Social History Social History Tobacco Use Smoking status: Former Current packs/day: 0.00 Average packs/day: 1 pack/day for 9.0 years (9.0 ttl pk-yrs) Types: Cigarettes Start date: 2004 Quit date: 2013 Years since quittin.3 Smokeless tobacco: Never Vaping Use Vaping status: Never Used Substance Use Topics Alcohol use: Yes Comment: social (1 or 2 glasses of wine) Drug use: Yes Types: Marijuana Comment: medical card Review of Symptoms REVIEW OF SYSTEMS See HPI EXAM: BP 122/70 Pulse 80 Resp 16 Wt 94.8 kg (209 lb) LMP 06/14/2017 (Approximate) BMI 31.78 kg/m General Appearance: Well appearing, alert, in no acute distress, well-hydrated, well nourished.. Lungs: Lungs clear to auscultation. No wheezing, rhonchi, rales.. Heart: RRR without murmur, gallop, or rubs. No ectopy. Extremities: No deformities, edema, skin discoloration, Good capillary refill. . Health Maintenance List Depression Screening Never done DTaP,Tdap,Td Vaccine(1 - Tdap) Never done Cervical Cancer Screening due on 01/22/2021 Covid-19 Vaccine( season) due on 10/22/2023 Annual PCP Team Chronic Disease Visit due on 04/12/2024 Hepatitis B Vaccine Discontinued Influenza Vaccine Discontinued Hepatitis C Screening Discontinued HIV Screening Discontinued Data reviewed In office EKG: NSR with non-specific ST and T wave abnormality. These are unchanged compard to EKG from 09/26/2022. A/P ASSESSMENT/PLAN: 1. Paroxysmal sinus tachycardia - ICD9: 427.0, ICD10: I47.19 (primary diagnosis) - ECG COMPLETE - no issues seen on current EKG and feel it's ok to trial a stimulant. Just start low and go slow. 2. ADHD (attention deficit hyperactivity disorder), inattentive type - ICD9: 314.00, ICD10: F90.0 - seeing psych and ok to trial a stimulant. Start low and go slow. 3. KALI (generalized anxiety disorder) - ICD9: 300.02, ICD10: F41.1 - see psych. F/u with me for complete PE Zheng Wilson MD documented in this encounter [facility] 06-22-2024 Note HNO ID: [id number] Author: ZHENG WILSON MD Service: ? Author Type: Physician Type: Progress Notes Filed: 06/22/2024 08:40 Note Text: Chief Complaint Patient presents with: EKG HPI Doretha Cleveland is a 39 year old female who presents here today for EKG. Patient seeing Psych virtually. Has her on Effexor and Strattera. The Strattera has not helped even though no side affects. Plan is to start a stimulant and with Hx of sinus tachycardia her psychiatrist would like her to get an EKG. Patient has been doing well on the Effexor for her anxiety. Still has the palpitations. More so afternoon and evening. Not increased in frequency. No chest pain. Still gets the shortness of breath at times but not increased. Past medical history, appointments, medications, allergies reviewed. Previous Medical History PAST MEDICAL HISTORY Diagnosis Date Asthma Biliary colic Chronic lower back pain 08/10/2012 Weight loss and strengthening help control. DDD (degenerative disc disease), lumbar 08/08/2015 Endometriosis Family history of early CAD 07/12/2019 KALI (generalized anxiety disorder) 01/08/2020 KALI (generalized anxiety disorder) History of microdiscectomy 07/09/2015 Mild intermittent asthma without complication (HCC) 03/25/2016 Obesity, Class I, BMI 30-34.9 04/12/2019 Obesity, Class II, BMI 35-39.9 04/12/2019 PONV (postoperative nausea and vomiting) Premature beats 10/31/2022 Halter 09/2022: PAC's and PVC's Sinus tachycardia 10/31/2022 Halter 09/2022 Well adult exam 04/12/2023 Last done: 01/14/2023 Previous Surgical History PAST SURGICAL HISTORY Procedure Laterality Date PAST SURGICAL HISTORY OF 2013 microdiscectomy; Dr. Long PAST SURGICAL HISTORY OF 03/2015 tubal ligation PAST SURGICAL HISTORY OF 2018 Vaginal Hyst, bilateral salpingectomy, left oophorectomc for endometriosis. Family History FAMILY HISTORY Problem Relation Age of Onset Breast Cancer Mother Coronary Artery Disease Paternal Grandfather Heart Attack Paternal Grandfather first occurred around age 50 Diabetes Maternal Grandfather Diabetes Father Thyroid Maternal Uncle Patient Allergies ALLERGIES Allergen Reactions Depo-Provera Contra* Hives Medroxyprogesterone Other: See Comments Contrast Dye [Iodin* Vomiting Current Medications Current Outpatient Medications on File Prior to Visit Medication Sig Lancets (ONETOUCH ULTRASOFT LANCETS) Use as instructed FOR TESTING- upto four times a day blood sugar diagnostic (ONETOUCH ULTRA TEST) test strip Use as instructed- upto four times daily alcohol swabs Upto four times a day for checking sugars dexAMETHasone (DECADRON) 1 mg tablet Take at 11 pm and go for labs the next morning Blood-Glucose Sensor (FREESTYLE KODY 3 SENSOR) erfaín Apply new sensor every 14 days Blood-Glucose Meter,Continuous (FREESTYLE KODY 3 READER) misc Use to check Blood Sugar four times or more daily propranolol (INDERAL) 10 mg tablet Take 1 tablet by mouth once daily. (Patient not taking: Reported on 06/08/2023) albuterol HFA (PROVENTIL HFA) 90 mcg/actuation inhaler Inhale 1-2 Puffs as instructed four times a day as needed for wheezing/shortness of breath. cyanocobalamin (VITAMIN B-12) 1,000 mcg tab Take 1 tablet by mouth once daily. (Patient not taking: Reported on 06/08/2023) escitalopram oxalate (LEXAPRO) 10 mg tablet Take 10 mg by mouth once daily. Take one tablet daily (Patient not taking: Reported on 06/08/2023) No current facility-administered medications on file prior to visit. Social History Social History Tobacco Use Smoking status: Former Current packs/day: 0.00 Average packs/day: 1 pack/day for 9.0 years (9.0 ttl pk-yrs) Types: Cigarettes Start date: 2004 Quit date: 2014 Years since quittin.3 Smokeless tobacco: Never Vaping Use Vaping status: Never Used Substance Use Topics Alcohol use: Yes Comment: social (1 or 2 glasses of wine) Drug use: Yes Types: Marijuana Comment: medical card Review of Symptoms REVIEW OF SYSTEMS See HPI EXAM: BP 122/70 Pulse 80 Resp 16 Wt 94.8 kg (209 lb) LMP 06/14/2017 (Approximate) BMI 31.78 kg/m? General Appearance: Well appearing, alert, in no acute distress, well-hydrated, well nourished.. Lungs: Lungs clear to auscultation. No wheezing, rhonchi, rales.. Heart: RRR without murmur, gallop, or rubs. No ectopy. Extremities: No deformities, edema, skin discoloration, Good capillary refill. . Health Maintenance List Depression Screening Never done DTaP,Tdap,Td Vaccine(1 - Tdap) Never done Cervical Cancer Screening due on 01/22/2021 Covid-19 Vaccine(2023- season) due on 10/22/2023 Annual PCP Team Chronic Disease Visit due on 04/12/2024 Hepatitis B Vaccine Discontinued Influenza Vaccine Discontinued Hepatitis C Screening Discontinued HIV Screening Discontinued Data reviewed In office EKG: NSR with non-specific ST and T (more content not included)... [facility] 06-13-2023 Instructions Lola Bernstein MD - 06/13/2023 9:33 AM EDT Dexamethasone suppression test: We will proceed with a dexamethasone suppression test to further investigate the high cortisol level. Explanation of the test: To explain it as simply as possible, you take a pill at bedtime and then get blood work the next morning. How does it work? The pill is a steroid medicine (ie - looks like cortisol) If your system for producing cortisol is working normally, then you should not make any cortisol the next morning after taking this medication, as your body gets tricked into thinking there is already enough. If the cortisol is not suppressed, then it means that you could be over-producing cortisol and more testing may be done to confirm. Directions for dexamethasone suppression test: 1. Take dexamethasone 1-mg tab by mouth at 11 PM the evening before your test. 2. Go to the lab the next morning and have your blood drawn at ~8 AM. *Do not eat or drink anything other than water from the time you take dexamethasone to the time you get your blood drawn. 3. If either of the following situations happen, DO NOT HAVE YOUR BLOOD DRAWN: A. You forget to take the pill at 11 PM the evening before B. You cannot get your blood drawn the next morning at ~8 AM C. If either situation happens, please call me to let me know .................................. .................................. .................................. ................................ For symptoms of sweating, shakiness and anxiety: Please check blood glucose levels when you have symptoms, before you eat or drink to help your symptoms resolve Recommend bringing your glucometer on next visit documented in this encounter [facility] 06-13-2023 History of Present illness Narrative [facility] Initial Clinic Visit Note Consulted by: Zheng Wilson MD Chief Complaint: Hypoglycemia, elevated cortisol levels My final recommendations will be communicated back to the requesting physician by way of shared medical record or letter via [place] mail. 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 Extremely anxious all the time She feels like gagging continuously when she feels hungry until she eats something Sweating at night, extremely sensitive during the day- over the last year Diarrhea + Shakiness - she feels better after eating carbs She did not pay attention to how these symptoms are associated with food otherwise (could not say if these symptoms occur after a heavy meal, or on fasting She always had easy bruising, Had dark rash on her elbows, denies itching or allergies Sleep time - sleeps for 7.5 hrs (10.30 pm to 6.00 am) Wakes up around 2 to 3 am and has hard time with going back to sleep, takes a while to fall asleep No fractures No proximal muscle weakness Gets dizzy often from standing up 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 DDD (degenerative disc disease), lumbar 08/08/2015 Endometriosis Family history of early CAD 07/12/2019 KALI (generalized anxiety disorder) 01/08/2020 KALI (generalized anxiety disorder) History of microdiscectomy 07/09/2015 Mild intermittent asthma without complication 03/25/2016 Obesity, Class I, BMI 30-34.9 04/12/2019 Obesity, Class II, BMI 35-39.9 04/12/2019 PONV (postoperative nausea and vomiting) Premature beats 10/31/2022 Halter 09/2022: PAC's and PVC's Sinus tachycardia 10/31/2022 Halter 09/2022 Well adult exam 04/12/2023 Last done: 01/14/2023 PAST SURGICAL HISTORY: PAST SURGICAL HISTORY Procedure Laterality Date PAST SURGICAL HISTORY OF 2013 microdiscectomy; Dr. Long PAST SURGICAL HISTORY OF 03/2015 tubal ligation PAST SURGICAL HISTORY OF 2018 Vaginal Hyst, bilateral salpingectomy, left oophorectomc for endometriosis. FAMILY HISTORY: FAMILY HISTORY Problem Relation Age of Onset Breast Cancer Mother Coronary Artery Disease Paternal Grandfather Heart Attack Paternal Grandfather first occurred around age 50 Diabetes Maternal Grandfather Diabetes Father Thyroid Maternal Uncle SOCIAL HISTORY: Social History Tobacco Use Smoking status: Former Packs/day: 1.00 Years: 9.00 Additional pack years: 0.00 Total pack years: 9.00 Types: Cigarettes Quit date: 2013 Years since quittin.3 Smokeless tobacco: Never Vaping Use Vaping Use: Never used Substance Use Topics Alcohol use: Yes Comment: social (1 or 2 glasses of wine) Drug use: Yes Types: Marijuana Comment: medical card MEDICATIONS: Current Outpatient Medications Medication Sig Blood-Glucose Sensor (FREESTYLE KODY 3 SENSOR) efraín Apply new sensor every 14 days Blood-Glucose Meter,Continuous (FREESTYLE KODY 3 READER) misc Use to check Blood Sugar four times or more daily albuterol HFA (PROVENTIL HFA) 90 mcg/actuation inhaler Inhale 1-2 Puffs as instructed four times a day as needed for wheezing/shortness of breath. propranolol (INDERAL) 10 mg tablet Take 1 tablet by mouth once daily. (Patient not taking: Reported on 06/08/2023) cyanocobalamin (VITAMIN B-12) 1,000 mcg tab Take 1 tablet by mouth once daily. (Patient not taking: Reported on 06/08/2023) escitalopram oxalate (LEXAPRO) 10 mg tablet Take 10 mg by mouth once daily. Take one tablet daily (Patient not taking: Reported on 06/08/2023) No current facility-administered medications for this visit. ALLERGIES: ALLERGIES Allergen Reactions Depo-Provera Contra* Hives Medroxyprogesterone Other: See Comments Contrast Dye [Iodin* Vomiting REVIEW OF SYSTEMS: All systems reviewed and negative other than HPI. PHYSICAL EXAM: BP 112/78 Pulse 80 Temp 37.1 C (98.7 F) (Temporal Artery) Ht 172.7 cm (5' 8) Wt 106.9 kg (235 lb 9.6 oz) LMP 06/14/2017 (Approximate) SpO2 97% BMI 35.82 kg/m Body mass index is 35.82 kg/m . General Appearance: Well appearing, alert, in no acute distress, well-hydrated, obese body habitus Skin: Skin color, texture, turgor normal, no suspicious rashes or lesions. Eyes: Anicteric sclera. EOMI Neck: Supple, no adenopathy; thyroid symmetric, normal size, no bruits. Lungs: unlabored breathing Heart: Regular rate and rhythm Abdomen: no suspicious striae noted Extremities: No deformities, edema, skin discoloration, clubbing or cyanosis. No tremors Musculoskeletal: No joint swelling, deformity, or tenderness. Peripheral Pulses: Normal. Neurologic: Gait normal. Reflexes normal and symmetric. LABS: Latest Ref Rng 09/26/2022 05/25/2023 WBC 3.70 - 11.00 k/uL 7.96 RBC 3.90 - 5.20 m/uL 4.65 Hemoglobin 11.5 - 15.5 g/dL 14.5 Hematocrit 36.0 - 46.0 % 42.5 MCV 80.0 - 100.0 fL 91.4 MCH 26.0 - 34.0 pg 31.2 MCHC 30.5 - 36.0 g/dL 34.1 RDW-CV 11.5 - 15.0 % 12.4 Platelet Count 150 - 400 k/uL 328 MPV 9.0 - 12.7 fL 10.1 Neut% % 66.4 Abs Neut (ANC) 1.45 - 7.50 k/uL 5.28 Lymph% % 26.6 Abs Lymph 1.00 - 4.00 k/uL 2.12 Beaver% % 4.9 Abs Beaver <0.87 k/uL 0.39 Eosin% % 1.9 Abs Eosin <0.46 k/uL 0.15 Baso% % 0.1 Abs Baso <0.11 k/uL <0.03 Immature Gran % % 0.1 IMMATURE GRANS (ABS) <0.10 k/uL <0.03 NRBC /100 WBC 0.0 Absolute nRBC <0.01 k/uL <0.01 DTYPE Auto Protein, Total 6.3 - 8.0 g/dL 6.7 Albumin 3.9 - 4.9 g/dL 4.5 Calcium 8.5 - 10.2 mg/dL 9.5 Bilirubin, Total 0.2 - 1.3 mg/dL 0.9 Alkaline Phosphatase 34 - 123 U/L 83 AST 13 - 35 U/L 15 ALT 7 - 38 U/L 12 Glucose 74 - 99 mg/dL 84 BUN 7 - 21 mg/dL 7 Creatinine 0.58 - 0.96 mg/dL 0.76 Sodium 136 - 144 mmol/L 137 Potassium 3.7 - 5.1 mmol/L 4.2 Chloride 97 - 105 mmol/L 102 CO2 22 - 30 mmol/L 21 (L) Anion Gap 9 - 18 mmol/L 14 eGFR >=60 mL/min/1.73m 104 Hemoglobin A1C 4.3 - 5.6 % 4.9 Estimated Average Glucose mg/dL 94 TSH 0.270 - 4.200 mIU/L 2.290 3.890 Free T4 0.9 - 1.7 ng/dL 1.3 Growth Hormone <3.61 ng/mL 0.13 ACTH 7.2 - 63.3 pg/mL 45.3 Cortisol 4.8 - 19.5 ug/dL 20.6 (H) Legend: (L) Low (H) High ASSESSMENT : 38 year old female who is presenting with concerns for hypoglycemia and elevated cortisol levels in the background of multiple symptoms ?Possible hypoglycemia: -Tachycardia, anxiousness, shakiness, sweating reported- no associated with food specifically -No risk factors for hypoglycemia in specific -She does not fulfil whipple's triad. I reviewed that sensors are not very sensitive for hypoglycemia -I recommended patient to document sugars with finger sticks when symptoms occur, along with timing after food, and time taken for symptoms to be relieved after taking carbs. -ordered glucometer/strips/lancets, can check fingerstick BG and message me with results to see if hypoglycemia is of concern - Blood-Glucose Meter (ONETOUCH ULTRA2 METER) monitoring kit; 1 Each as needed for up to 1 day. - Lancets (ONETOUCH ULTRASOFT LANCETS) lancets; Use up to once daily - blood sugar diagnostic (ONETOUCH ULTRA TEST) test strip; Use as instructed up to once daily Elevated cortisol levels on fasting: -Due to symptoms of extreme fatigue and obesity with mildly elevated cortisol levels checked for possible hypoglycemia, I discussed about checking for excess cortisol with 1 mg DST. She is not on any medications that could effect the interpretation of cortisol levels -Instructions reviewed for 1 mg DST - explained elevated cortisol is not associated with hypoglycemia as she was asking few questions believing the cortisol being abnormal was causing her low BG seen on CGM FOLLOW UP: 2 months with glucose log I spent a total of 65 minutes on the date of the service which included preparing to see the patient, [id number] patient care, completing clinical documentation, obtaining and/or reviewing separately obtained history, performing a medically appropriate examination, counseling and educating the patient/family/caregiver, ordering medications, tests, or procedures, and independently interpreting results (not separately reported). Lola Benrstein MD Endocrinology Associate Staff [facility] Endocrinology and Metabolism [place] [phone] documented in this encounter [facility] 06-08-2023 History of Present illness Narrative Patient is a 38-year-old female who has a number of medical concerns that are causing significant anxiety, she does have a appointment with endocrinology coming up for elevated cortisol levels. She is having low back pain but is not sure that her back pain is related to her known disc conditions. She states she is not looking for any medications she just wants answers if her back pain is related to other issues. Counseled patient that here in the [facility] care we do not have the capacity to do extensive testing, I cannot perform the testing that her alternative dispute resolution mediator would perform She appears to have significant anxiety about her medical conditions, advised that she may better be evaluated in the emergency room where they can do real-time labs and imaging studies. Patient acknowledges what I have counseled her on today but did not commit to going to a specific ER documented in this encounter [facility] 06-08-2023 Instructions Kezia Almanza MA - 06/08/2023 5:53 PM EDT [facility] - LAB FA[facility] [phone] LAB HOURS: Lab is open Monday - 7:30 am - 6 pm, Monday 7:30 am to 5 pm, and Monday 8 am -12 pm. LAB ORDERS 365 days after they are entered. If your lab orders , you may be required to wait in the lab while they are reinstated. STANDING ORDERS are recurring orders with an expiration date. The interval will indicate how often the test should be completed. FASTING LAB means nothing to eat or drink (except water) 10-12 hours before your blood is drawn. CT MRI IVP If you have one of these radiology exams ordered along with blood work, please complete the blood work at least one day prior to the scheduled exam. [facility] The pharmacy is open Monday - 8 am - 8 pm, and Monday 8 am - 6 pm. [facility] Radiology is open Monday - 7:30 am - 6 pm, Monday 7:30 am - 5 pm, and Monday 8 am - 12 pm. [facility] WALK-IN SCREENING MAMMOGRAPHY Walk-In mammography screenings are available Tuesdays and only-Walk in hours 3:00pm ( first appointment) until 6:20pm (last appointment) No appointment is necessary. A prior doctor's order is not required. [facility], AND [facility] No appointment is necessary. [facility] is for patients ages 2 years and older. For [facility] LOCATIONS, HOURS OF OPERATION and CURRENT WAIT TIMES, visit the following link: [email or web address]& My Chart Schedule My Appointment enables you to view your established primary care provider's open schedule and book an appointment online in real-time. This feature is available in internal medicine, family medicine, or pediatrics at any of our [facility] locations and main campus. documented in this encounter [facility] 05-31-2023 Miscellaneous Notes The following approved medication requests have been transmitted electronically. Requested Prescriptions Signed Prescriptions Disp Refills Blood-Glucose Sensor (FREESTYLE KODY 3 SENSOR) efraín 2 Each 11 Sig: Apply new sensor every 14 days Blood-Glucose Meter,Continuous (FREESTYLE KODY 3 READER) misc 1 Each 0 Sig: Use to check Blood Sugar four times or more daily Zheng Wilson MD Dr. Wilson please see message spoke to patient who used a friends sensor for kody 3. Patient aware insurance may not cover so will have to pay out of pocket.. pended rx please send Autumn Rodriguez MA documented in this encounter [facility] 05-26-2023 Miscellaneous Notes Phoned patient and reviewed provider's message with her. Patient voiced understanding and directed to scheduling desk. Let patient know her cortisol level is high. Her ACTH is mid normal but would expect it to be low with the cortisol being high. Her growth hormone and TSH were ok. I wonder if she has sofi's syndrome. That could explain the weight gain we talked about. I can't explain how that relates to the blood sugar being low and would expect it to be high. I want her to see Endo. Order placed. [facility] [facility] 04-[facility]-2023 Miscellaneous Notes Weight Management Navigation Date contact made: 04/24/2023 Outcome of contact: Spoke With Intervention Chosen By Patient: Endocrinology Comments: Patient given information to get connected. Rere Sanchez Health Navigator documented in this encounter [facility] 04-20-2023 History of Present illness Narrative Images from the original note were not included. Rheumatology Clinic Date of Service: 03/22/2023 Patient: Doretha Cleveland Medical Record: [id number] Last Rheumatology visit: 03/22/2023 (with Claudette Soto) Video Visit History of Present Illness Doretha Cleveland is a 38 year old White female who presents on 03/22/2023 for evaluation of Jaw Pain. Doretha is both RF - 9 (03/14/2023) and CCP - 13.5 (03/14/2023) negative. Her most recent TAY was negative (03/14/2023). HISTORY OF PRESENT ILLNESS 38 year old female who presents for evaluation of jaw pain. Past medical history: mild, intermittent asthma Past surgical history: hysterectomy with 1 salpingectomy 2/2 endometriosis She notes for most of her life she has had clicking of her jaw, but notes no one paid much attention. They recommended mouth guard PRN. In November, symptoms worsened. She woke up one day and felt like she had a toothache. Also notes her jaw locked up and could not open all the way. Progressed very quickly. Saw her routine dentist. Prescribed steroid pack and muscle relaxers. Steroid pack helped initially, but symptoms returned as she tapered the symptoms returned. She was then referred to a TMJ specialist in [place]. He placed an appliance. When this was in, the pain and locking got worse. She was getting evaluated weekly. She began to have migraines around Junie. She was referred to oral surgeon. Wants to flush out the joint effusions. She tried mobic and doxycycline. This took the edge off. She notices swelling in her ankles. Occurs if she is on her feet for a long time during her day. She has noticed bumps on the volar side of her wrists. These come and go. These can be painful. She has knee pain. Comes and goes. Exercise/activity brings on knee pain. 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 Notes her work is high stress. This has been difficult due to work. CT 01/03/23: Right condylar head is reduced in seize tiffany ont he lateral part with mild flattening of the anterior-suprior surface, subchondral sclerosis. Ostephyte formation Cervical spine: mild cervical spine changes with evidence of subchondral sclerosis, cortical erosions, apophyseal joint osteophyte formation Notes she has been having ongoing palpitations. She had holter monitor and told she had tachycardia with premature heart beats. Notes she was having significant exhaustion. She tried beta uzma. Low dose with no changes. Plan to increase dose, but jaw symptoms started and that was paused. Has follow up next month with PCP. During Covid, she felt like she was having trouble getting a full breath. She does have h/o asthma, but this felt different. Found a gallbladder issue= Notes she had EF 0%. She had cholecystectomy in 2020. No rashes No photosensitivity No mucosal ulcers No patches of hair loss. Thinning hair No raynauds No blood clots No pericarditis or pleuritis No h/o psoriasis. Sister does have psoriasis. No Crohns or UC. MRI TMJ 02/28/23: RIGHT: Alignment: Within normal limits. Condylar head: Within normal limits. Mandibular fossa: Within normal limits. Articulation / Articular disc: Maintained joint space with relatively diminished anterior translation of the mandibular condyle in the open-mouth view compared to the contralateral side. Joint effusion: Small volume joint effusion. Periarticular soft tissues/extract puller space: Within normal limits. LEFT: Alignment: Within normal limits. Condylar head: Within normal limits. Mandibular fossa: Within normal limits. Articulation / Articular disc: Within normal limits, including normal disc movement. Joint effusion: Small volume joint effusion. Periarticular soft tissues/extract puller space: Within normal limits. Additional findings: Unremarkable imaged intracranial contents. IMPRESSION: Asymmetric relatively diminished anterior translation of the mandibular condyle on the right in the open-mouth view with relatively normal articulation on the left. Small bilateral joint effusions. * * * * * * * * ADDENDUM #1 * * * * * * * * On further review, somewhat more moderate volume joint effusion is present bilaterally, significantly greater on the right. INTERVAL HISTORY Follow up to review results. Labs reveal negative CCP, RF, ESR, CRP Patient-Entered Data PROMIS Assessments PROMIS Global Health - (T-Scores - the mean of general population = 50. Five points is a clinically meaningful difference.) 03/22/2023 Physical T-Score 39.8 Mental T-Score 31.3 PROMIS CAT Pain Interference 03/22/2023 PROMIS Pain Interference T-Score (range: 10 - 90) 72 (severe) PROMIS Pain Interference Percentile 1% PROMIS CAT Fatigue 03/22/2023 PROMIS Fatigue T-Score 74 (severe) PROMIS Fatigue Percentile 1% PROMIS PHYSICAL FUNCTION T-SCORE 03/22/2023 PROMIS Physical Function T-Score 45 (within normal limits) Physical Function Percentile 31% RAPID 3 [place] Activities of Daily Living 03/22/2023 3:17 PM Dress self? Without ANY difficulty Get in and out of bed? With SOME difficulty Walk outdoors? With SOME difficulty Wash and dry body? Without ANY difficulty Get in and out of car? Without ANY difficulty RAPID 3 Disease Activity Weighed Score Levels: 0 - 1: Near Remission 1.3 - 2.0: Low Severity 2.3 - 4.0: Moderate Severity 4.3 - 10.0: High Severity RAPID-3 Weighed Score 03/22/2023 RAPID 3 Weighed Score 3.33 (Moderate Severity (MS)) Patient Health Questionnaire (PHQ-9) PHQ-9 11/25/2016 06/20/2017 03/22/2023 Score 8 0 18 (0-4) minimal depression, (5-9) mild depression, (10-14) moderate depression, (15-19) moderately severe depression, (20-27) severe depression Review of Systems Review of Systems CONSTITUTION: Positive for: Recent weight change Negative for: Fever HEENT: Negative for: Nosebleeds, Mouth sores, Trouble swallowing and Dry mouth RESPIRATORY: Negative for: Cough, Shortness of breath and Pain with breathing GASTROINTESTINAL: Negative for: Melena, Diarrhea, Heartburn and Abdominal pain MUSCULOSKELETAL: Positive for: Arthralgias, Myalgias, Muscle weakness, Joint swelling and Morning Joint Stiffness NEUROLOGICAL: Positive for: Headaches and Memory loss Negative for: Numbness SKIN: Positive for: Rash Negative for: Sun Sensitive Rash, Skin changes, Hair loss and Nail changes EYES: Negative for: Eye pain, Eye redness, Eye dryness and visual disturbance CARDIOVASCULAR: Negative for: Chest pain and Leg swelling GENITOURINARY: Negative for: Dysuria and Hematuria HEMATOLOGIC/LYMPHATIC: Negative for: Swollen glands All other reviewed and negative other than HPI. Current Medications Current Outpatient Medications on File Prior to Visit Medication Sig albuterol HFA (PROVENTIL HFA) 90 mcg/actuation inhaler Inhale 1-2 Puffs as instructed four times a day as needed for wheezing/shortness of breath. cyanocobalamin (VITAMIN B-12) 1,000 mcg tab Take 1 tablet by mouth once daily. escitalopram oxalate (LEXAPRO) 10 mg tablet Take 10 mg by mouth once daily. Take one tablet daily metoprolol succinate ER (TOPROL XL) 25 mg 24 hr tablet Take 1 tablet by mouth once daily. No current facility-administered medications on file prior to visit. Labs Antibodies Latest Ref Rng & Units 03/14/2023 TAY Negative Negative RF and CCP Latest Ref Rng & Units 03/14/2023 RHEUMATOID FACTOR <16 IU/mL <10 CCP ANTIBODY IGG QUALITATIVE Negative Negative CCP ANTIBODY, IGG <20 Units <15 Physical Exam LMP 06/14/2017 Exam: GENERAL: Well appearing Impression and Plan Diagnoses: (M27.9) Jaw disease (primary encounter diagnosis) 38 year old female who presents for evaluation of jaw pain. She has been having symptoms since November. MRI of the TMJ shows joint effusion bilaterally along with relatively diminished anterior translation of the mandibular condyle. She reports pain in her knees, described as mechanical. No notable history of morning stiffness or joint swelling. No inflammatory eye or lung disease. On exam, no signs of synovitis in the upper or lower extremities. We discussed at this time, no notable signs of peripheral inflammatory arthritis. Negative CCP, RF, ESR, CRP. XR without notable erosions of the hand or feet. At this time, no active signs of chronic inflammatory arthritis. Though overall lower clinical suspicion for rheumatoid arthritis, psoriatic arthritis or TAY spectrum disease. Orders this visit: No orders found for this visit on 03/22/23. No follow-ups on file. CC: PCP: Zheng Wilson MD [id number] [facility] [id number] Phone #: [phone] I spent a total of 20 minutes on the date of the service which included preparing to see the patient, [id number] patient care, completing clinical documentation, obtaining and/or reviewing separately obtained history, performing a medically appropriate examination, and counseling and educating the patient/family/caregiver. I have communicated my name and active licensure. The patient's identity and physical location were verified at the time of this visit. Either the patient or their legal circulation sales representative has been informed of the risks and benefits of -- and alternatives to -- treatment through a remote evaluation and consents to proceed with the evaluation remotely. ____ Claudette Soto MD Rheumatology documented in this encounter [facility] 04-12-2023 History of Present illness Narrative Chief Complaint Patient presents with: Follow Up HPI Doretha Cleveland is a 38 year old female who presents here today for follow up on palpitations. . Patient indicated that she only took 2 metoprolol pills. Didn't like how the medication made her feel. She got very dizzy. She did not pass out. Past medical history, appointments, medications, allergies reviewed. Previous Medical History PAST MEDICAL HISTORY Diagnosis Date Asthma Biliary colic Chronic lower back pain 08/10/2012 Weight loss and strengthening help control. DDD (degenerative disc disease), lumbar 08/08/2015 Endometriosis Family history of early CAD 07/12/2019 KALI (generalized anxiety disorder) 01/08/2020 KALI (generalized anxiety disorder) History of microdiscectomy 07/09/2015 Mild intermittent asthma without complication 03/25/2016 Obesity, Class I, BMI 30-34.9 04/12/2019 PONV (postoperative nausea and vomiting) Premature beats 10/31/2022 Halter 09/2022: PAC's and PVC's Sinus tachycardia 10/31/2022 Halter 09/2022 Previous Surgical History PAST SURGICAL HISTORY Procedure Laterality Date PAST SURGICAL HISTORY OF 2013 microdiscectomy; Dr. oLng PAST SURGICAL HISTORY OF 03/2015 tubal ligation PAST SURGICAL HISTORY OF 2018 Vaginal Hyst, bilateral salpingectomy, left oophorectomc for endometriosis. Family History FAMILY HISTORY Problem Relation Age of Onset Breast Cancer Mother Coronary Artery Disease Paternal Grandfather Heart Attack Paternal Grandfather first occurred around age 50 Diabetes Maternal Grandfather Diabetes Father Thyroid Maternal Uncle Patient Allergies ALLERGIES Allergen Reactions Medroxyprogesterone Other: See Comments Depo-Provera Contra* Hives Contrast Dye [Iodin* Vomiting Current Medications Current Outpatient Medications on File Prior to Visit Medication Sig metoprolol succinate ER (TOPROL XL) 25 mg 24 hr tablet Take 1 tablet by mouth once daily. albuterol HFA (PROVENTIL HFA) 90 mcg/actuation inhaler Inhale 1-2 Puffs as instructed four times a day as needed for wheezing/shortness of breath. cyanocobalamin (VITAMIN B-12) 1,000 mcg tab Take 1 tablet by mouth once daily. escitalopram oxalate (LEXAPRO) 10 mg tablet Take 10 mg by mouth once daily. Take one tablet daily No current facility-administered medications on file prior to visit. Social History Social History Tobacco Use Smoking status: Former Packs/day: 1.00 Years: 9.00 Additional pack years: 0.00 Total pack years: 9.00 Types: Cigarettes Quit date: 2013 Years since quittin.1 Smokeless tobacco: Never Vaping Use Vaping Use: Never used Substance Use Topics Alcohol use: Yes Comment: social (1 or 2 glasses of wine) Drug use: No Review of Symptoms REVIEW OF SYSTEMS See HPI EXAM: BP 118/72 (BP Site: Left Arm, BP Position: Sitting, BP Cuff Size: Large Adult) Pulse 68 Resp 16 Wt 108.9 kg (240 lb) LMP 06/14/2017 (Approximate) BMI 37.03 kg/m General Appearance: Well appearing, alert, in no acute distress, well-hydrated, well nourished.. Lungs: Lungs clear to auscultation. No wheezing, rhonchi, rales.. Heart: RRR without murmur, gallop, or rubs. No ectopy. Health Maintenance List DTaP,Tdap,Td Vaccine(1 - Tdap) Never done Covid-19 Vaccine(3 - 2022- season) due on 10/21/2022 Pap Testing due on 01/22/2023 HPV Testing due on 01/22/2023 Depression Assessment Never done Annual PCP Team Chronic Disease Visit due on 02/09/2024 Spirometry Completed HPV Vaccine Aged Out Hepatitis B Vaccine Discontinued Influenza Vaccine Discontinued Hepatitis C Screening Discontinued HIV Screening Discontinued Data reviewed A/P ASSESSMENT/PLAN: 1. Paroxysmal sinus tachycardia - ICD9: 427.0, ICD10: I47.19 (primary diagnosis) - will trial propranolol 10 mg a day 2. Obesity, Class II, BMI 35-39.9 - ICD9: 278.00, ICD10: E66.9 - CONSULT TO WEIGHT MANAGEMENT NAVIGATION Requested Prescriptions Signed Prescriptions Disp Refills propranolol (INDERAL) 10 mg tablet 30 tablet 5 Sig: Take 1 tablet by mouth once daily. F/u in a month to reassess tachycardia. Zheng Wilson MD documented in this encounter [facility] 03-16-2023 Miscellaneous Notes Pt wanted to schedule an appt for OMFS consult Referral in [facility] MRI in [facility] (Feb 22) Pt stated diagnosis is TMJ wash out lysis and lavage TMJ arthroscopy Please advise if we see/treat for this Thank fredy Birch documented in this encounter [facility] 03-14-2023 History of Present illness Narrative Images from the original note were not included. Rheumatology Clinic Date of Service: 03/14/2023 Patient: Doretha Cleveland Medical Record: [id number] Last Rheumatology visit: 03/22/2023 (with Claudette Soto) History of Present Illness Doretha Cleveland is a 38 year old White female who presents on 03/14/2023 for an in-person visit for evaluation of New Patient Evaluation (OA/RA Evaluation). Doretha is both RF - 9 (03/14/2023) and CCP - 13.5 (03/14/2023) negative. Her most recent TAY was negative (03/14/2023). HISTORY OF PRESENT ILLNESS 38 year old female who presents for evaluation of jaw pain. Past medical history: mild, intermittent asthma Past surgical history: hysterectomy with 1 salpingectomy 2/2 endometriosis She notes for most of her life she has had clicking of her jaw, but notes no one paid much attention. They recommended mouth guard PRN. In November, symptoms worsened. She woke up one day and felt like she had a toothache. Also notes her jaw locked up and could not open all the way. Progressed very quickly. Saw her routine dentist. Prescribed steroid pack and muscle relaxers. Steroid pack helped initially, but symptoms returned as she tapered the symptoms returned. She was then referred to a TMJ specialist in [place]. He placed an appliance. When this was in, the pain and locking got worse. She was getting evaluated weekly. She began to have migraines around Junie. She was referred to oral surgeon. Wants to flush out the joint effusions. She tried mobic and doxycycline. This took the edge off. She notices swelling in her ankles. Occurs if she is on her feet for a long time during her day. She has noticed bumps on the volar side of her wrists. These come and go. These can be painful. She has knee pain. Comes and goes. Exercise/activity brings on knee pain. 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 Notes her work is high stress. This has been difficult due to work. CT 01/03/23: Right condylar head is reduced in seize tiffany ont he lateral part with mild flattening of the anterior-suprior surface, subchondral sclerosis. Ostephyte formation Cervical spine: mild cervical spine changes with evidence of subchondral sclerosis, cortical erosions, apophyseal joint osteophyte formation Notes she has been having ongoing palpitations. She had holter monitor and told she had tachycardia with premature heart beats. Notes she was having significant exhaustion. She tried beta uzma. Low dose with no changes. Plan to increase dose, but jaw symptoms started and that was paused. Has follow up next month with PCP. During Covid, she felt like she was having trouble getting a full breath. She does have h/o asthma, but this felt different. Found a gallbladder issue= Notes she had EF 0%. She had cholecystectomy in 2020. No rashes No photosensitivity No mucosal ulcers No patches of hair loss. Thinning hair No raynauds No blood clots No pericarditis or pleuritis No h/o psoriasis. Sister does have psoriasis. No Crohns or UC. MRI TMJ 02/28/23: RIGHT: Alignment: Within normal limits. Condylar head: Within normal limits. Mandibular fossa: Within normal limits. Articulation / Articular disc: Maintained joint space with relatively diminished anterior translation of the mandibular condyle in the open-mouth view compared to the contralateral side. Joint effusion: Small volume joint effusion. Periarticular soft tissues/extract puller space: Within normal limits. LEFT: Alignment: Within normal limits. Condylar head: Within normal limits. Mandibular fossa: Within normal limits. Articulation / Articular disc: Within normal limits, including normal disc movement. Joint effusion: Small volume joint effusion. Periarticular soft tissues/extract puller space: Within normal limits. Additional findings: Unremarkable imaged intracranial contents. IMPRESSION: Asymmetric relatively diminished anterior translation of the mandibular condyle on the right in the open-mouth view with relatively normal articulation on the left. Small bilateral joint effusions. * * * * * * * * ADDENDUM #1 * * * * * * * * On further review, somewhat more moderate volume joint effusion is present bilaterally, significantly greater on the right. Patient-Entered Data PROMIS Assessments PROMIS Global Health - (T-Scores - the mean of general population = 50. Five points is a clinically meaningful difference.) 03/22/2023 Physical T-Score 39.8 Mental T-Score 31.3 PROMIS CAT Pain Interference 03/22/2023 PROMIS Pain Interference T-Score (range: 10 - 90) 72 (severe) PROMIS Pain Interference Percentile 1% PROMIS CAT Fatigue 03/22/2023 PROMIS Fatigue T-Score 74 (severe) PROMIS Fatigue Percentile 1% PROMIS PHYSICAL FUNCTION T-SCORE 03/22/2023 PROMIS Physical Function T-Score 45 (within normal limits) Physical Function Percentile 31% RAPID 3 [place] Activities of Daily Living 03/22/2023 3:17 PM Dress self? Without ANY difficulty Get in and out of bed? With SOME difficulty Walk outdoors? With SOME difficulty Wash and dry body? Without ANY difficulty Get in and out of car? Without ANY difficulty RAPID 3 Disease Activity Weighed Score Levels: 0 - 1: Near Remission 1.3 - 2.0: Low Severity 2.3 - 4.0: Moderate Severity 4.3 - 10.0: High Severity RAPID-3 Weighed Score 03/22/2023 RAPID 3 Weighed Score 3.33 (Moderate Severity (MS)) Patient Health Questionnaire (PHQ-9) PHQ-9 11/25/2016 06/20/2017 03/22/2023 Score 8 0 18 (0-4) minimal depression, (5-9) mild depression, (10-14) moderate depression, (15-19) moderately severe depression, (20-27) severe depression Review of Systems ROS RHEUMATOLOGYAll other reviewed and negative other than HPI. Current Medications Current Outpatient Medications on File Prior to Visit Medication Sig albuterol HFA (PROVENTIL HFA) 90 mcg/actuation inhaler Inhale 1-2 Puffs as instructed four times a day as needed for wheezing/shortness of breath. cyanocobalamin (VITAMIN B-12) 1,000 mcg tab Take 1 tablet by mouth once daily. escitalopram oxalate (LEXAPRO) 10 mg tablet Take 10 mg by mouth once daily. Take one tablet daily metoprolol succinate ER (TOPROL XL) 25 mg 24 hr tablet Take 1 tablet by mouth once daily. No current facility-administered medications on file prior to visit. Labs Antibodies Latest Ref Rng & Units 03/14/2023 TAY Negative Negative RF and CCP Latest Ref Rng & Units 03/14/2023 RHEUMATOID FACTOR <16 IU/mL <10 CCP ANTIBODY IGG QUALITATIVE Negative Negative CCP ANTIBODY, IGG <20 Units <15 Physical Exam BP 145/89 Pulse 78 Wt 237 lb 3.4 oz (107.6kg) LMP 06/14/2017 Exam: GENERAL: Well appearing SKIN: Warm, dry, no significant rashes, no significant bruising. NEURO: A&Ox3. Mental status and speech normal. MSK: Shoulders: Intact ROM without reported pain. No appreciable swelling or tenderness with palpation. Elbows: No flexion contractures. No appreciable swelling, deformities, or tenderness with palpation. Wrists: No limitation of flexion or extension. No appreciable swelling or tenderness with palpation. Hands: No evidence of synovitis or tenderness with palpation. Able to make full fist bilaterally. Hips: Intact ROM. No tenderness with palpation. Knees: No gross deformity. No appreciable effusion. No tenderness with palpation of joint lines. No joint laxity and intact ROM. Ankles: No limitation of plantarflexion or dorsiflexion. No appreciable effusion. No tenderness with palpation. Feet: No evidence of synovitis or tenderness with palpation. Impression and Plan Diagnoses: (M27.9) Jaw disease (primary encounter diagnosis) (M54.2) Neck pain (M25.50) Arthralgia, unspecified joint 38 year old female who presents for evaluation of jaw pain. She has been having symptoms since November. MRI of the TMJ shows joint effusion bilaterally along with relatively diminished anterior translation of the mandibular condyle. She reports pain in her knees, described as mechanical. No notable history of morning stiffness or joint swelling. No inflammatory eye or lung disease. On exam, no signs of synovitis in the upper or lower extremities. We discussed at this time, no notable signs of peripheral inflammatory arthritis. At this time, no active signs of chronic inflammatory arthritis. Will obtain serology testing with CCP, RF, TAY by IFA, ESR, CRP and XR of hands and foot to look for any sequale of old disease. Though overall lower clinical suspicion for rheumatoid arthritis, psoriatic arthritis or TAY spectrum disease. Orders this visit: Office Visit on 03/14/23 XR HAND/WRIST SURVEY ARTHRITIS 1V PA BILATERAL XR FOOT SURVEY ARTHRITIS 1V AP BILATERAL XR CERV OTHER 4V AP/LAT/OBL CCP ANTIBODY IGG RHEUMATOID FACTOR BL SED RATE WESTERGREN C-REACTIVE PROTEIN (CRP) TAY BY IFA WITH REFLEX CONSULT TO RHEUM/IMMUN DISEASE CONSULT TO DENTISTRY No follow-ups on file. CC: PCP: Zheng Wilson MD [address] [facility] [id number] Phone #: [phone] I spent a total of 60 minutes on the date of the service which included . ____ Claudette Soto MD Rheumatology Date: March 14, 2023 Time: 2:22 PM documented in this encounter [facility] 02-22-2023 History of Present illness Narrative Radiology Service Progress Note PATIENT NAME: Doretha Cleveland DATE OF SERVICE: February 22, 2023 TIME: 10:32 AM PATIENT IDENTITY VERIFICATION COMPLETED USING TWO (2) IDENTIFIERS: Name and Date of confirmed by patient verbally. FALL SCREENING: Has the patient had 2 falls in the last year or 1 fall with injury or currently using an Ambulatory Assistive Device (Walker, Cane, Wheelchair, Crutches, etc.)? No PATIENT GENDER DATA: Female. status: : No status: NO. PATIENT RELEVANT IMPLANT DATA REVIEWED: Yes RADIOLOGY DEPARTMENT: MR; Exam(s) Completed: Head: TMJ PERIPHERAL IV DATA: Not applicable SIGNED BY: RT Fanny(R) February 22, 2023 10:32 AM documented in this encounter [facility] 02-08-2023 History of Present illness Narrative Chief Complaint Patient presents with: Follow Up HPI Doretha Cleveland is a 37 year old female who presents here today for continued jaw pain on right side. Saw her regular dentist; and was referred to someone else in [place]. Patient indicated that she has paid out over $2400 and it is not getting better. She feels they are not explaining or giving a time line on when this will feel better. Wanting to seek advise. Patient was placed on an initial course of prednisone burst and it helped but when the dose was reducing the pain returned. The pain is mainly on the right side. Patient saw the dental specialist and was placed on a second dose of steroids which again helped initially and then the pain returned. She has been wearing a guard for the last 6 weeks with no change in symptoms. At times her jaw will lock and then pop. Her ROM is reduced with opening her mouth due to pain. Past medical history, appointments, medications, allergies reviewed. Previous Medical History PAST MEDICAL HISTORY Diagnosis Date Asthma Biliary colic Chronic lower back pain 08/10/2012 Weight loss and strengthening help control. DDD (degenerative disc disease), lumbar 08/08/2015 Endometriosis Family history of early CAD 07/12/2019 KALI (generalized anxiety disorder) 01/08/2020 KALI (generalized anxiety disorder) History of microdiscectomy 07/09/2015 Mild intermittent asthma without complication 03/25/2016 Obesity, Class I, BMI 30-34.9 04/12/2019 PONV (postoperative nausea and vomiting) Premature beats 10/31/2022 Halter 09/2022: PAC's and PVC's Sinus tachycardia 10/31/2022 Halter 09/2022 Previous Surgical History PAST SURGICAL HISTORY Procedure Laterality Date PAST SURGICAL HISTORY OF 2013 microdiscectomy; Dr. Long PAST SURGICAL HISTORY OF 03/2015 tubal ligation PAST SURGICAL HISTORY OF 2018 Vaginal Hyst, bilateral salpingectomy, left oophorectomc for endometriosis. Family History FAMILY HISTORY Problem Relation Age of Onset Breast Cancer Mother Coronary Artery Disease Paternal Grandfather Heart Attack Paternal Grandfather first occurred around age 50 Diabetes Maternal Grandfather Diabetes Father Thyroid Maternal Uncle Patient Allergies ALLERGIES Allergen Reactions Medroxyprogesterone Other: See Comments Depo-Provera Contra* Hives Contrast Dye [Iodin* Vomiting Current Medications Current Outpatient Medications on File Prior to Visit Medication Sig albuterol HFA (PROVENTIL HFA) 90 mcg/actuation inhaler Inhale 1-2 Puffs as instructed four times a day as needed for wheezing/shortness of breath. cyanocobalamin (VITAMIN B-12) 1,000 mcg tab Take 1 tablet by mouth once daily. escitalopram oxalate (LEXAPRO) 10 mg tablet Take 10 mg by mouth once daily. Take one tablet daily metoprolol succinate ER (TOPROL XL) 25 mg 24 hr tablet Take 1 tablet by mouth once daily. No current facility-administered medications on file prior to visit. Social History Social History Tobacco Use Smoking status: Former Packs/day: 1.00 Years: 9.00 Additional pack years: 0.00 Total pack years: 9.00 Types: Cigarettes Quit date: 2013 Years since quittin.9 Smokeless tobacco: Never Vaping Use Vaping Use: Never used Substance Use Topics Alcohol use: Yes Comment: social (1 or 2 glasses of wine) Drug use: No Review of Symptoms REVIEW OF SYSTEMS See HPI EXAM: BP 126/82 (BP Site: Right Arm, BP Position: Sitting, BP Cuff Size: Large Adult) Pulse 70 Resp 18 Wt 108.4 kg (239 lb) LMP 06/14/2017 (Approximate) BMI 36.88 kg/m General Appearance: Well appearing, alert, in no acute distress, well-hydrated, well nourished.. Head: right TMJ is tender to palpation. On opening and closing I did not feel any popping or grinding but patient was also apprehensive to open her mouth too far. Health Maintenance List Pneumococcal Vaccine(1 of 2 - PCV) Never done DTaP,Tdap,Td Vaccine(1 - Tdap) Never done Depression Assessment Never done Covid-19 Vaccine(3 - 2022- season) due on 10/21/2022 Pap Testing due on 01/22/2023 HPV Testing due on 01/22/2023 Annual PCP Team Chronic Disease Visit due on 01/15/2024 Spirometry Completed HPV Vaccine Aged Out Hepatitis B Vaccine Discontinued Influenza Vaccine Discontinued Hepatitis C Screening Discontinued HIV Screening Discontinued Data reviewed X-ray done shows significant arthritic changes in the right TMJ area with subchondral sclerosis and osteophyte formation. A/P ASSESSMENT/PLAN: 1. TMJ dysfunction - ICD9: 524.60, ICD10: M26.609 (primary diagnosis) - CONSULT TO DENTISTRY: Dr. Stephenson oral surgery 2. Primary osteoarthritis involving multiple joints - ICD9: 715.98, ICD10: M15.9 - CONSULT TO RHEUM/IMMUN DISEASE: [facility] Dr. Candelario I spent a total of 32 minutes on the date of the service which included preparing to see the patient, [id number] patient care, completing clinical documentation, performing a medically appropriate examination, counseling and educating the patient/family/caregiver and ordering medications, tests, or procedures. Zheng Wilson MD documented in this encounter [facility] 01-14-2023 History of Present illness Narrative Chief Complaint Patient presents with: Physical HPI Doretha Cleveland is a 37 year old female who presents here today for physical. Pt of Dr. Wilson in for a physical. No bowel, Gi, or urinary issues. Has diarrhea frequently multiple times a day. It does seem to occur about 20 minutes after eating. No nausea, vomiting. No blood in the stool. Has not been an issue for her. Palpitations: Taking Toprol xl 25 mg, half pill daily. Had 1 episode of chest pain with palpitations in the last 30 days, lasted less than a minute maybe 30-45 sec. Denied having any other sx of dizziness, sob, headache. She does not feel that the Metoprolol is really working well, has not used a full 25 mg daily. She stated that pharmacist told her not to break the pills in half due to it being slow release pill. Has had Holter monitor showing sinus tachycardia, has had normal stress echo in the past. She remains concerned because of a family history of heart disease. Depression/KALI: Stable with Lexapro 10 mg daily. 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 No regular exercise. Past medical history, appointments, medications, allergies reviewed. Previous Medical History PAST MEDICAL HISTORY Diagnosis Date Asthma Biliary colic Chronic lower back pain 08/10/2012 Weight loss and strengthening help control. DDD (degenerative disc disease), lumbar 08/08/2015 Endometriosis Family history of early CAD 07/12/2019 KALI (generalized anxiety disorder) 01/08/2020 KALI (generalized anxiety disorder) History of microdiscectomy 07/09/2015 Mild intermittent asthma without complication 03/25/2016 Obesity, Class I, BMI 30-34.9 04/12/2019 PONV (postoperative nausea and vomiting) Premature beats 10/31/2022 Halter 09/2022: PAC's and PVC's Sinus tachycardia 10/31/2022 Halter 09/2022 Previous Surgical History PAST SURGICAL HISTORY Procedure Laterality Date PAST SURGICAL HISTORY OF 2013 microdiscectomy; Dr. Long PAST SURGICAL HISTORY OF 03/2015 tubal ligation PAST SURGICAL HISTORY OF 2018 Vaginal Hyst, bilateral salpingectomy, left oophorectomc for endometriosis. Family History FAMILY HISTORY Problem Relation Age of Onset Breast Cancer Mother Coronary Artery Disease Paternal Grandfather Heart Attack Paternal Grandfather first occurred around age 50 Diabetes Maternal Grandfather Diabetes Father Thyroid Maternal Uncle Patient Allergies ALLERGIES Allergen Reactions Medroxyprogesterone Other: See Comments Depo-Provera Contra* Hives Contrast Dye [Iodin* Vomiting Current Medications Current Outpatient Medications on File Prior to Visit Medication Sig albuterol HFA (PROVENTIL HFA) 90 mcg/actuation inhaler Inhale 1-2 Puffs as instructed four times a day as needed for wheezing/shortness of breath. metoprolol succinate ER (TOPROL XL) 25 mg 24 hr tablet Take 0.5 tablets by mouth once daily. cyanocobalamin (VITAMIN B-12) 1,000 mcg tab Take 1 tablet by mouth once daily. escitalopram oxalate (LEXAPRO) 10 mg tablet Take 10 mg by mouth once daily. Take one tablet daily No current facility-administered medications on file prior to visit. Social History Social History Tobacco Use Smoking status: Former Packs/day: 1.00 Years: 9.00 Additional pack years: 0.00 Total pack years: 9.00 Types: Cigarettes Quit date: 2013 Years since quittin.9 Smokeless tobacco: Never Vaping Use Vaping Use: Never used Substance Use Topics Alcohol use: Yes Comment: social (1 or 2 glasses of wine) Drug use: No EXAM: BP 120/68 Pulse 76 Resp 16 Wt 108.3 kg (238 lb 12.8 oz) LMP 06/14/2017 (Approximate) BMI 36.85 kg/m General Appearance: Well appearing, alert, in no acute distress, well-hydrated, well nourished. and Obese. Lungs: Lungs clear to auscultation. No wheezing, rhonchi, rales.. Heart: RRR without murmur, gallop, or rubs. No ectopy. Abdomen: Normal abdominal exam, Abdomen soft, non-tender. Bowel sounds normal. No masses, organomegaly. Health Maintenance List Pneumococcal Vaccine(1 - PCV) Never done DTaP,Tdap,Td Vaccine(1 - Tdap) Never done Depression Assessment Never done Covid-19 Vaccine(2022- season) due on 10/21/2022 Pap Testing due on 01/22/2023 HPV Testing due on 01/22/2023 Annual PCP Team Chronic Disease Visit due on 11/19/2023 Spirometry Completed HPV Vaccine Aged Out Hepatitis B Vaccine Discontinued Influenza Vaccine Discontinued Hepatitis C Screening Discontinued HIV Screening Discontinued Data reviewed none ASSESSMENT/PLAN: 1. Wellness examination - ICD9: V70.0, ICD10: Z00.00 (primary diagnosis) - Counseled on healthy diet and regular exercise 2. Paroxysmal sinus tachycardia - ICD9: 427.0, ICD10: I47.19 Increase metoprolol to 25 mg daily Discussed possibility of Cardiology consult for further reassurnace; decided to wait and see how she does on the metoprolol - METOPROLOL SUCCINATE ER 25 MG TABLET,EXTENDED RELEASE 24 HR 3. KALI (generalized anxiety disorder) - ICD9: 300.02, ICD10: F41.1 Continue lexapro 4. Obesity, Class II, BMI 35-39.9 - ICD9: 278.00, ICD10: E66.9 Lifestyle Follow up in 6-8 weeks with PCP I agree with the Chief Complaint, ROS, and Past Histories independently gathered by the clinical technical support consultant and the remaining scribed note accurately describes my personal service to the patient. Ulises Booker MD The documentation for this note was completed by Rachael Grewal Ma acting as scribe for Ulises Booker MD. January 14, 2023 8:23 AM. Rachael Grewal Ma documented in this encounter [facility] 09-27-2022 Miscellaneous Notes PATIENT NOTIFIED OF INFORMATION Attempted to reach pt, mailbox is full so unable to leave a message. Veda Santana LPN Let patient know the thyroid labs, folate, iron studies, UA, electrolytes, liver and kidney functions were all normal. Her B12 is low and would advise she start taking OTC B12 1000 mcg once a day. The syphilis test was negative. Her CBC was normal and showed no anemia and in fact her Hg was 14.5. I think the home meter she but is very inaccurate. documented in this encounter [facility] 09-26-2022 History of Present illness Narrative Chief Complaint Fatigue HPI Doretha Cleveland is a 37 year old female who presents here today for fatigue; heart fluttering; memory x couple of months Office visit - Fatigue 09/26/2022 Patient has not been seen in the office since 03/2019. Patient has a hx of anxiety and is working with a psychiatrist on an Sultana and is on lexapro 10 mg daily. Started this in February. Patient has had a long Hx of palpitations and says she discussed it with a residential program coordinator in the past and had and told ok but seems to be occuring more often and lasting longer. In the past they where very short. Patient says every time she tries to give blood she is told her Hg is low. She bought a Hg monitor off the Internet and notes it runs between 9-10.5 and HCT: 28-32%. Has had a Hyst back in 2018 for endometriosis. When her Hg is lower she notes increased palpitations, and fatigue. Has been noticing issues with her memory for about a year, maybe longer. Has not noted any memory improvement with being on the lexapro. Her anxiety is being controlled well for the most part. Not aware of FHx of bleeding disorders, not aware of any known dementia like issues in her family. Brother and uncle have Hx of thyroid issues. Has cold intolerance. No issues with constipation or diarrhea. No excessive dry or oily skin. No hair loss. Denies any significant issues with concentration or finishing a project once started. . Denies blood in stool. Past medical history, appointments, medications, allergies reviewed. Previous Medical History PAST MEDICAL HISTORY Diagnosis Date Asthma Biliary colic Chronic lower back pain 08/10/2012 Weight loss and strengthening help control. DDD (degenerative disc disease), lumbar 08/08/2015 Endometriosis Family history of early CAD 07/12/2019 KALI (generalized anxiety disorder) 01/08/2020 History of microdiscectomy 07/09/2015 Mild intermittent asthma without complication 03/25/2016 Obesity, Class I, BMI 30-34.9 04/12/2019 PONV (postoperative nausea and vomiting) Previous Surgical History PAST SURGICAL HISTORY Procedure Laterality Date PAST SURGICAL HISTORY OF 2013 microdiscectomy; Dr. Long PAST SURGICAL HISTORY OF 03/2015 tubal ligation PAST SURGICAL HISTORY OF 2018 Vaginal Hyst, bilateral salpingectomy, left oophorectomc Family History FAMILY HISTORY Problem Relation Age of Onset Breast Cancer Mother Coronary Artery Disease Paternal Grandfather Heart Attack Paternal Grandfather first occurred around age 50 Diabetes Maternal Grandfather Diabetes Father Thyroid Maternal Uncle Patient Allergies ALLERGIES Allergen Reactions Medroxyprogesterone Other: See Comments Depo-Provera Contra* Hives Contrast Dye [Iodin* Vomiting Current Medications Current Outpatient Medications on File Prior to Visit Medication Sig cyclobenzaprine (FLEXERIL) 10 mg tablet Take 1 tablet by mouth every 8 hours as needed. lidocaine viscous (LIDOCAINE VISCOUS) 2 % solution Take 5-10 mL by mouth as needed for pain. Swish and spit fluconazole (DIFLUCAN) 100 mg tablet Take 2 tablets today, then 1 tablet daily for 13 days, eat prior No current facility-administered medications on file prior to visit. Social History Social History Tobacco Use Smoking status: Former Packs/day: 1.00 Years: 9.00 Total pack years: 9.00 Types: Cigarettes Quit date: 2013 Years since quittin.6 Smokeless tobacco: Never Vaping Use Vaping Use: Never used Substance Use Topics Alcohol use: Yes Comment: social (1 or 2 glasses of wine) Drug use: No Review of Symptoms REVIEW OF SYSTEMS See HPI EXAM: BP 122/84 (BP Site: Left Arm, BP Position: Sitting, BP Cuff Size: Large Adult) Pulse 70 Resp 16 Ht 171.5 cm (5' 7.5) Wt 106.6 kg (235 lb) LMP 06/14/2017 (Approximate) BMI 36.26 kg/m General Appearance: Well appearing, alert, in no acute distress, well-hydrated, well nourished.. Eyes: Anicteric sclera. Pupils are equally round and reactive to light. Extraocular movements are intact. . Neck: Supple, no adenopathy; thyroid symmetric, normal size, no bruits. Lungs: Lungs clear to auscultation. No wheezing, rhonchi, rales.. Heart: RRR without murmur, gallop, or rubs. No ectopy. Abdomen: Normal abdominal exam, Abdomen soft, non-tender. Bowel sounds normal. No masses, organomegaly. Extremities: No deformities, edema, skin discoloration, clubbing or cyanosis. Good capillary refill. . Musculoskeletal: Spine range of motion normal. Muscular strength intact, No joint swelling, deformity, or tenderness. Peripheral Pulses: Normal. Neurologic: Gait normal. Reflexes normal and symmetric. Sensation to light touch and crainal nerves 2-12 intact.. Health Maintenance List HEPATITIS B(1 of 3 - 3-dose series) Never done COVID-19 VACCINE(1) Never done PNEUMOCOCCAL(1 - PCV) Never done HEPATITIS C SCREENING Never done HIV SCREENING Never done DTAP,TDAP,TD(1 - Tdap) Never done ANNUAL PCP TEAM CHRONIC DISEASE VISIT due on 06/08/2021 DEPRESSION ASSESSMENT Never done PAP TESTING due on 01/22/2023 HPV TESTING due on 01/22/2023 SPIROMETRY Completed HPV VACCINE Aged Out INFLUENZA Discontinued Data reviewed In office EKG: NSR with non-specific T wave inversion in lead III. This is unchanged when compared to EKG from 04/21/2019. MINI-MENTAL STATE EXAMINATION (MMSE) Make the patient comfortable and establish rapport. Ask questions in the order listed. Total possible score is 30. ORIENTATION 1. What is the (year) (season) (date) (day) (month)? Max score=5 Patient's score=5 2. Where are we? (state) (county) (town or city) (hospital) (floor)? Max score=5 Patient's score=5 REGISTRATION Ask the patient if you may test his/her memory. Then say the names of 3 unrelated objects, clearly and slowly, about one second for each (eg, apple, table, vida). After you have said all 3, ask him/her to repeat them. This first repetition determines the score(0-3), but keep saying them until he/she can repeat all 3, up to 6 trials. Max score=3 Patient's score=3 ATTENTION AND CALCULATION Ask the patient to begin with 100 and count backwards by 7. Stop after 5 subtractions (93, 86, 79, 72, 65). Score the total number of correct answers. If the patient cannot or will not perform the serial 7s task, ask him/her to spell the word WORLD backwards. The score is the number of letters in the correct order (eg, DLROW=5; DLRW=4; DLORW, DLW=3; OW=2; DRLWO=1). Max score=5 Patient's score=5 RECALL Ask the patient to recall the 3 items repeated above (eg, apple, table, vida). Max score=3 Patient's score=2 LANGUAGE Naming: Show the patient a wristwatch and ask him/her what it is. Repeat for pencil. Max score=2 Patient's score=2 Repetition: Ask the patient to repeat the phrase No ifs, ands, or buts: after you. Max score=1 Patient's score=1 3-Stage Command: Give the patient a piece of blank paper and ask him/her to take a piece of paper in your right hand, fold it in half, put it on the floor. Score 1 point for each part correctly executed. Max score=3 Patient's score=1 Reading: On a blank piece of paper, print the sentence CLOSE YOUR EYES in letters large enough for the patient to see clearly. Ask him/her to read it and do what it says. Score 1 point only if he/she actually closes his/her eyes. Max score=1 Patient's score=1 Writing: Give the patient a blank piece of paper and ask him/her to write a sentence. Do not dictate a sentence; it is to be written spontaneously. It must contain a subject and verb and be sensible. Correct grammar and punctuation are not necessary. Max score=1 Patient's score=1 Copying: Ask the patient to copy the figure of intersecting pentagons exactly as it is. All 10 angles must be present and 2 must intersect to form a 4-sided figure to score 1 point. Tremor and rotation are ignored. Max score=1 Patient's score=1 MAXIMUM TOTAL SCORE = 30 TOTAL SCORE = 28/30 Suggested guideline for determining the severity of cognitive impairment: Mild: MMSE>21 Moderate: MMSE 10-20 Severe: MMSE<9 Expected decline in MMSE scores in untreated mild to moderate Alzheimer's patient is 2 to 4 points per year. *Adapted from Folstein et al.1 and Alan and Simin2. (c) 1974, 1997 [employer] Used with permission. References: 1. Folstein MF, Folstein SE, Javier GA. Mini-Mental State: a practical method for grading the cognitive state of patients for the clinician. J Psychiatr Res. 1975; 12:189-198. 2. JR Alan, Simin MF, Mini-Mental State Examination (MMSE). Psychopharm Bull. 1988;24:689-692. 3. Shanique JT, Ton FJ, Yue RD, Yung A, Dre F. Neuropsychological function in Alzheimer's disease: pattern of impairment and rates of progression. Arch Neurol. 1988;45:263-268. 4. Chacorta JA, Philomena B, Jignesh S-P, Jyoti HOLDER. Predictors of cognitive and functional progression in patients with probable Alzheimer's disease. Neurology. 1992;42:4643-9676. A/P ASSESSMENT/PLAN: 1. Palpitations - ICD9: 785.1, ICD10: R00.2 (primary diagnosis) Check - ECG COMPLETE - TSH BLD - CBC + DIFF - T4 FREE/FREE THYROX Will send order to [facility] for event monitor for 30 daays 2. KALI (generalized anxiety disorder) - ICD9: 300.02, ICD10: F41.1 - cont current management with psych 3. Memory difficulties - ICD9: 780.93, ICD10: R41.3 Check - VITAMIN B12 BLOOD - COMP METABOLIC PANEL - TSH BLD - URINALYSIS, WITH MICROSCOPIC - SYPHILIS TOTAL W/REFLEX - CBC + DIFF - FERRITIN BLD - FOLATE SERUM - T4 FREE/FREE THYROX 4. Encounter for lipid screening for cardiovascular disease - ICD9: V77.91, V81.2, ICD10: Z13.220, Z13.6 Check - LIPID PANEL, NONFASTING 5. Encounter for screening for diabetes mellitus - ICD9: V77.1, ICD10: Z13.1 Check - HGB A1C 6. Fatigue, unspecified type - ICD9: 780.79, ICD10: R53.83 Check - TSH BLD - IRON + TIBC - CBC + DIFF - FOLATE SERUM - T4 FREE/FREE THYROX 7. Anemia, unspecified type - ICD9: 285.9, ICD10: D64.9 Check - IRON + TIBC - CBC + DIFF - FERRITIN BLD - FOLATE SERUM F/u 6 weeks for complete PE I spent a total of 44 minutes on the date of the service which included preparing to see the patient, [id number] patient care, completing clinical documentation, performing a medically appropriate examination, counseling and educating the patient/family/caregiver and ordering medications, tests, or procedures. Zheng Wilson MD documented in this encounter [facility] 06-12-2022 History of Present illness Narrative Images from the original note were not included. Subjective 37 y/o female Pt c/o right sided low back pain with radiation into the thigh and groin. Started on Monday. She denies known injury. No fever, chills, dysuria, flank pain, hematuria. She had discectomy in 2013 and this feels like previous herniation. She has not had this level of pain since then. No extremity or saddle paresthesias. No bowel or bladder incontinence. Using ibuprofen and tylenol with little improvement. The history is provided by the patient. Review of Systems Constitutional: Negative for chills and fever. Gastrointestinal: Negative for abdominal pain, diarrhea, nausea and vomiting. Genitourinary: Negative for dysuria, flank pain and hematuria. Musculoskeletal: Positive for back pain. Negative for falls, myalgias and neck pain. Skin: Negative for rash. Neurological: Negative for tingling, sensory change and weakness. Endo/Heme/Allergies: Does not bruise/bleed easily. Psychiatric/Behavioral: The patient is not nervous/anxious. Objective BP 122/76 (BP Site: Left Arm, BP Position: Standing, BP Cuff Size: Large Adult) Pulse 85 Temp 36.6 C (97.8 F) (Temporal) Resp 16 Ht 172.7 cm (5' 8) Wt 107.5 kg (236 lb 14.4 oz) LMP 06/14/2017 (Approximate) SpO2 96% BMI 36.02 kg/m Physical Exam Vitals and nursing note reviewed. Constitutional: General: She is not in acute distress. Appearance: Normal appearance. She is not ill-appearing. HENT: Head: Normocephalic. Musculoskeletal: Cervical back: Normal range of motion. Lumbar back: Tenderness present. No swelling, edema, deformity, spasms or bony tenderness. Decreased range of motion. Back: Skin: General: Skin is warm and dry. Findings: No bruising, erythema or rash. Neurological: General: No focal deficit present. Mental Status: She is alert and oriented to person, place, and time. Sensory: Sensation is intact. Gait: Gait normal. Deep Tendon Reflexes: Reflexes are normal and symmetric. Reflexes normal. Psychiatric: Mood and Affect: Mood and affect normal. Behavior: Behavior normal. Thought Content: Thought content normal. Cognition and Memory: Memory normal. Judgment: Judgment normal. ASSESSMENT/PLAN: 1. Acute right-sided low back pain without sciatica - ICD9: 724.2, ICD10: M54.50 - start medrol today - continue using ibuprofen every 8 hours for the next 3 days, then as needed for pain - use flexeril for muscle spasm - may make drowsy - use ice to the area of pain for 15 mins, then use heat for 15 mins. Repeat 2-3 X/day - follow up with your primary physician this week if symptoms persist or sooner if worsening Vicenta Kingston PA-C documented in this encounter [facility] 06-12-2022 Instructions Vicenta Kingston PA-C - 06/12/2022 3:43 PM EDT ASSESSMENT/PLAN: 1. Acute right-sided low back pain without sciatica - ICD9: 724.2, ICD10: M54.50 - start medrol today - continue using ibuprofen every 8 hours for the next 3 days, then as needed for pain - use flexeril for muscle spasm - may make drowsy - use ice to the area of pain for 15 mins, then use heat for 15 mins. Repeat 2-3 X/day - follow up with your primary physician this week if symptoms persist or sooner if worsening Vicenta Kingston PA-C documented in this encounter [facility] 07-03-2020 Note HNO ID: [id number] Author: Melani Varghese APRN.CERT PHARMACY TECH Service: Anesthesiology Author Type: Nurse Decatizer Type: Anesthesia Procedure Notes Filed: 07/03/2020 8:53 AM Note Text: ANESTHESIOLOGY PROCEDURE NOTE PIV General Information Procedure Start Time/Medication Administration: 07/03/2020 8:30 AM Patient Location: OR Staffing Anesthesiologist: Sharla Casanova MD Preparation Sterility Preparation: hand hygiene performed prior to procedure, surgical cap used, mask used, skin prep agent completely dried prior to procedure Site Prep: alcohol Procedure Details Indication: need for IV access Needle Size/Type: 18 gauge angiocath Orientation: Left Location: Hand Imaging Guidance Used: No SIGNATURE: Melani Varghese APRN.CRNA PATIENT NAME: Doretha Cleveland DATE: July 03, 2020 TIME: 8:51 AM CSN: [id number] [facility] 07-03-2020 Note HNO ID: [id number] Author: Melani Varghese APRN.CERT PHARMACY TECH Service: Anesthesiology Author Type: Nurse Decatizer Type: Anesthesia Procedure Notes Filed: 07/03/2020 8:50 AM Note Text: ANESTHESIOLOGY PROCEDURE NOTE PIV General Information Procedure Start Time/Medication Administration: 07/03/2020 7:30 AM Patient Location: [facility] (preop) Staffing Anesthesiologist: Sharla Casanova MD Performed by: anesthesiologist Preparation Sterility Preparation: hand hygiene performed prior to procedure, surgical cap used, mask used, skin prep agent completely dried prior to procedure Site Prep: alcohol Procedure Details Indication: need for IV access Needle Size/Type: 20 gauge angiocath Orientation: Right Location: Antecubital Imaging Guidance Used: No SIGNATURE: Melani Varghese APRN.CRNA PATIENT NAME: Doretha Cleveland DATE: July 03, 2020 TIME: 8:49 AM CSN: [id number] [facility] 07-03-2020 Note HNO ID: [id number] Author: Melani Varghese APRN.CERT PHARMACY TECH Service: Anesthesiology Author Type: Nurse Decatizer Type: Anesthesia Procedure Notes Filed: 07/03/2020 8:49 AM Note Text: ANESTHESIOLOGY PROCEDURE NOTE Airway General Information Procedure Start Time/Medication Administration: 07/03/2020 8:26 AM Patient location during procedure: OR Timeout Performed Pre-procedure: timeout performed Consent Obtained: Yes Patient identity confirmed: arm band and patient Staffing CERT PHARMACY TECH: Melani Varghese APRN.CERT PHARMACY TECH Performed by: KIP Indications and Patient Condition Preoxygenated: yes Patient position: sniffing Difficult Mask: No Indications for airway management: anesthesia and airway protection anesthesia circuit Method: asleep Final Airway Details Final airway type: endotracheal airway Final Endotracheal Airway: ETT Cuffed: yes Successful intubation technique: direct laryngoscopy Endotracheal tube insertion site: oral Blade: Bhupendra Blade size: #4 ETT size (mm): 7.0 Measured from: lips Measurement (cm): 22 Placement verified by: chest auscultation and capnometry Cormack-Lehane Classification: grade I - full view of glottis Number of attempts at approach: 1 Airway not difficult SIGNATURE: Melani Varghese APRN.CERT PHARMACY TECH PATIENT NAME: Doretha Cleveland DATE: July 03, 2020 TIME: 8:49 AM CSN: [id number] [facility] 06-04-2020 Note HNO ID: [id number] Author: Delia Beal Service: ? Author Type: Physician Type: Progress Notes Filed: 06/04/2020 7:00 PM Note Text: Patient referred by: Naldo Hitchcock MD [address] [address] Patient presents with: Follow Up: S/P ULTRASOUND HPI: 35-year-old female here to go over the results of her ultrasound and HIDA scan. She states that she has pain in the right upper quadrant and also shortness of breath. This may be related to food. She has no nausea or vomiting. She has no diarrhea or constipation. She states this is different from her asthma attacks that she has had in the past. PAST MEDICAL HISTORY Diagnosis Date - Asthma - Chronic lower back pain 08/10/2012 Weight loss and strengthening help control. - DDD (degenerative disc disease), lumbar 08/08/2015 - Family history of early CAD 07/12/2019 - KALI (generalized anxiety disorder) 01/08/2020 - History of microdiscectomy 07/09/2015 - Mild intermittent asthma without complication 03/25/2016 - Obesity, Class I, BMI 30-34.9 04/12/2019 PAST SURGICAL HISTORY Procedure Laterality Date - PAST SURGICAL HISTORY OF 2013 microdiscectomy; Dr. Long - PAST SURGICAL HISTORY OF 03/2015 tubal ligation - PAST SURGICAL HISTORY OF 2018 Vaginal Hyst, bilateral salpingectomy, left oophorectomc FAMILY HISTORY Problem Relation Age of Onset - Breast Cancer Mother - Coronary Artery Disease Paternal Grandfather - Heart Attack Paternal Grandfather first occurred around age 50 - Diabetes Maternal Grandfather - Diabetes Father - Thyroid Maternal Uncle Social History Tobacco Use - Smoking status: Former Smoker Packs/day: 1.00 Years: 9.00 Pack years: 9.00 Types: Cigarettes Quit date: 2013 Years since quittin.2 - Smokeless tobacco: Never Used Vaping Use - Vaping Use: Never used Substance Use Topics - Alcohol use: Yes Comment: social (1 or 2 glasses of wine) - Drug use: No Current Outpatient Medications Medication Sig - fluticasone-vilanterol (BREO ELLIPTA) 200-25 mcg/dose inhaler Inhale 1 Inhalation as instructed once daily. - elagolix (ORILISSA) 150 mg tab Take 1 tablet by mouth once daily. Per PATIENT CARE - sertraline (ZOLOFT) 50 mg tablet 1/2 a tablet by mouth once a day for 10 days then go to one tablet daily - albuterol HFA (PROVENTIL HFA) 90 mcg/actuation inhaler Inhale 1-2 Puffs as instructed four times daily as needed for Wheezing/Shortness of Breath. No current facility-administered medications for this visit. ALLERGIES Allergen Reactions - Medroxyprogesterone Other: See Comments - Depo-Provera Contra* Hives - Contrast Dye [Iodin* Vomiting REVIEW OF SYSTEMS: GENERAL: No weight loss, malaise or fevers GI: Negative for vomiting, diarrhea, constipation and signs of jaundice Positive for abdominal pain RUQ and nausea PHYSICAL EXAM: BP 122/80 Pulse 75 Ht 5' 8 (1.73m) Wt 257 lb (116.6kg) LMP 06/14/2017 BMI 39.09 kg/(m2). GENERAL APPEARANCE: Well appearing, alert, in no acute distress, well-hydrated, well nourished.. ABDOMEN: Abdomen is soft. There is some tenderness palpation the right upper quadrant. There is no rebound or guarding. NEURO: Alert, oriented x3, no asterixis, speech clear and articulate and MONTERROSO DATA: Diagnostic tests reviewed for today's visit: Most recent labs Most recent imaging I spent a total of 30 minutes on the date of the service which included preparing to see the patient, [id number] patient care and communicating results to the patient/family/caregiver. .Greater than 50% of the direct patient contact time was spent in counseling or coordination of care. Medical Decision Making ASSESSMENT / PLAN 1. Right upper quadrant pain I reviewed her imaging this shows no evidence of findings of gallstones however she may be suffering from biliary colic. I would get a HIDA scan to better assess this. If her HIDA scan proves to show evidence of chronic cholecystitis she may benefit from a laparoscopic cholecystectomy. I will obtain a HIDA scan and have her follow-up after this. - [place] HEPATOBILIARY W EF AND/OR RX; Future Delia Beal MD Please Note: This office note has been created using [employer], a speech recognition software program, and may contain errors including punctuation, grammar, spelling, gender, and inappropriate words or phrases that pertain to the sytem. [facility] Evaluation note Diagnosis Acute right-sided low back pain without sciatica- [facility] Diagnosis Palpitations- Primary KALI (generalized anxiety disorder) Generalized anxiety disorder Memory difficulties Memory loss Encounter for lipid screening for cardiovascular disease Screening for lipoid disorders Encounter for screening for diabetes mellitus Screening for diabetes mellitus Fatigue, unspecified type Anemia, unspecified type [facility] Low serum vitamin B12 [facility] Diagnosis Wellness examination- Primary Paroxysmal sinus tachycardia KALI (generalized anxiety disorder) Generalized anxiety disorder Obesity, Class II, BMI 35-39.9 Obesity, unspecified [facility] Diagnosis TMJ dysfunction- Primary Temporomandibular joint disorders, unspecified Primary osteoarthritis involving multiple joints [facility] Diagnosis Paroxysmal sinus tachycardia- Primary Obesity, Class II, BMI 35-39.9 Obesity, unspecified [facility]* Diagnosis 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 Neck pain Cervicalgia Arthralgia, unspecified joint [facility] Diagnosis 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 documented in this encounter [facility] note* Diagnosis Paroxysmal sinus tachycardia- Primary Hypoglycemia Hypoglycemia, unspecified documented in this encounter [facility] note* Diagnosis Elevated cortisol level- Primary Other corticoadrenal overactivity Hypoglycemia Hypoglycemia, unspecified Tachycardia Tachycardia, unspecified documented in this encounter [facility] note* Diagnosis APPOINTMENT CANCELLED- Primary documented in this encounter [facility] note* Diagnosis Elevated cortisol level- Primary Other corticoadrenal overactivity Hypoglycemia Hypoglycemia, unspecified Tachycardia Tachycardia, unspecified Class 2 obesity with body mass index (BMI) of 35.0 to 35.9 in adult, unspecified obesity type, unspecified whether serious comorbidity present Fatigue, unspecified type documented in this encounter [facility] note* Diagnosis Paroxysmal sinus tachycardia- Primary ADHD (attention deficit hyperactivity disorder), inattentive type Attention deficit disorder without mention of hyperactivity KALI (generalized anxiety disorder) Generalized anxiety disorder documented in this encounter [facility] for referral (narrative)* Outpatient Procedure (Routine) - Pending Review Specialty Diagnoses / Procedures Referred By Contac t Referred To Contact [facility] Diagnoses Palpitations Procedures ECG COMPLETE ECG ROUTINE ECG W/LEAST 12 LDS W/I&R Zheng Wilson MD [address] [place] [address] [facility] [address] [id number] Referral ID Status Reason Start Date Expiration Date Visits Requested Visits Authorized [id number] Pending Review Auto-Generat ed Referral 09/26/2022 09/26/2023 1 1 [facility] for referral (narrative)* Diagnostic Procedure Only (Routine) - Closed Specialty Diagnoses / Procedures Referred By Contac t Referred To Contact XR IMAGING Diagnoses Neck pain Procedures XR CERV OTHER 4V AP/LAT/OBL RADEX SPINE CERVICAL 4 OR 5 VIEWS Claudette Soto MD [address] [place] [address] Xr Imaging [id number] Referral ID Status Reason Start Date Expiration Date V isits Requested Visits Authorized [id number] Closed Auto-Generate d Referral 03/14/2023 04/12/2024 1 1 * Diagnostic Procedure Only (Routine) - Closed Specialty Diagnoses / Procedures Referred By Contac t Referred To Contact XR IMAGING Diagnoses Arthralgia, unspecified joint Procedures XR FOOT SURVEY ARTHRITIS 1V AP BILATERAL JOINT SURVEY SINGLE VIEW 2 OR MORE JOINTS Claudette Soto MD [address] [place] [address] [place] [address] Referral ID Status Reason Start Date Expiration Date V isits Requested Visits Authorized [id number] Closed Auto-Generate d Referral 03/14/2023 04/12/2024 1 1 * Diagnostic Procedure Only (Routine) - Closed Specialty Diagnoses / Procedures Referred By Contac t Referred To Contact XR IMAGING Diagnoses Arthralgia, unspecified joint Procedures XR HAND/WRIST SURVEY ARTHRITIS 1V PA BILATERAL JOINT SURVEY SINGLE VIEW 2 OR MORE JOINTS Claudette Soto MD [address] [place] [address] [place] [address] Referral ID Status Reason Start Date Expiration Date V isits Requested Visits Authorized [id number] Closed Auto-Generate d Referral 03/14/2023 04/12/2024 1 1 * Consult, Test, Treat (Routine) - Pending Review Specialty Diagnoses / Procedures Referred By Contac t Referred To Contact Dentistry Diagnoses Jaw disease Procedures CONSULT TO DENTISTRY OFFICE/OUTPATIENT 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 TMJ patient Procedures MRI TMJ W/O CONTRAST MRI WWO NEU1 [address] Enma Jooradha [address] [place] [address] Radio M[facility] [address] [place] [address] Referral ID Status Reason Start Date Expiration Date Visits Re quested Visits Authorized [id number] Closed 02/22/2023 02/20/2024 1 1 [facility] Reason for Referral Status Reason Specialty Diagnoses / Procedures Referred By Contact Referred To Contact New Request Neurologic Surgery Diagnoses Other intervertebral disc degeneration, lumbar region Low back pain, unspecified back pain laterality, unspecified chronicity, with sciatica presence unspecified Rj Quintanilla DO [facility] [address] [place] [address] Specialty Diagnoses / Procedures Referred By Contac t Referred To Contact Dentistry Diagnoses TMJ dysfunction Procedures CONSULT TO DENTISTRY OFFICE/OUTPATIENT [facility] 60-74 MINUTES Zheng Wilson MD [address] [place] [address] Referral ID Status Reason Start Date Expiration Date Visits Requested Visits Authorized [id number] Pending Review PCP Requested Referral 3 02/08/2024 1 1 Specialty Diagnoses / Procedures Referred By Contac t Referred To Contact Rheumatology Diagnoses Primary osteoarthritis involving multiple joints Procedures CONSULT TO RHEUM/IMMUN DISEASE OFFICE/OUTPATIENT [facility] 60-74 MINUTES Zheng Wilson MD [address] [place] [address] Referral ID Status Reason Start Date Expiration Date Visits Requested Visits Authorized [id number] Authorized PCP Requested Referral 3 02/08/2024 1 1 Specialty Diagnoses / Procedures Referred By Contac t Referred To Contact Endocrinology Diagnoses Elevated cortisol level Hypoglycemia Tachycardia Procedures CONSULT TO ENDOCRINOLOGY OFFICE/OUTPATIENT NEW HIGH MDM 60 MINUTES Zheng Wilson MD [address] [place] [address] Referral ID Status Reason Start Date Expiration Date Visits Requested Visits Authorized [id number] Authorized PCP Requested Referral 05/26/2023 05/25/2024 1 1 Assessments Diagnosis Other intervertebral disc de generation, lumbar region - Primary Low back pain, unspecified b ack pain laterality, unspecified chronicity, with sciatica presence unspecified Summary Purpose Family History No Family History Records FoundNo Family History Records FoundNo Family History Records FoundNo Family History Records FoundNo Family History Records FoundNo Family History Records FoundNo Family History Records Found Advance Directives No Advanced Directives Records FoundNo Advanced Directives Records FoundNo Advanced Directives Records FoundNo Advanced Directives Records FoundNo Advanced Directives Records FoundNo Advanced Directives Records FoundNo Advanced Directives Records Found Additional Source Comments INFORMATION SOURCE (unrecogn ized section and content) DATE CREATED AUTHOR 06/03/2018 [facility] DATE CREATED AUTHOR AUTHOR'S ORGANIZ ATION 05/01/2019 [facility] DATE CREATED AUTHOR AUTHOR'S ORGANIZ ATION 01/01/2020 [facility] DATE CREATED AUTHOR AUTHOR'S ORGANIZ ATION 07/14/2020 [facility] DATE CREATED AUTHOR AUTHOR'S ORGANIZ ATION 10/07/2022 [facility] DATE CREATED AUTHOR AUTHOR'S ORGANIZ ATION 06/10/2023 [facility] DATE CREATED AUTHOR AUTHOR'S ORGANIZ ATION 06/27/2024 [facility] Source Comments (unrecognize d section and content) In the event this informatio n is protected by the Federal Confidentiality of Alcohol and Drug Abuse Patient Records regulations: The Federal rules restrict any use of the information to criminally investigate or prosecute any alcohol or drug abuse patient.[facility] the event this information is protected by the Federal Confidentiality of Alcohol and Drug Abuse Patient Records regulations: The Federal rules restrict any use of the information to criminally investigate or prosecute any alcohol or drug abuse patient.[facility] the event this information is protected by the Federal Confidentiality of Alcohol and Drug Abuse Patient Records regulations: The Federal rules restrict any use of the information to criminally investigate or prosecute any alcohol or drug abuse patient.[facility] the event this information is protected by the Federal Confidentiality of Alcohol and Drug Abuse Patient Records regulations: The Federal rules restrict any use of the information to criminally investigate or prosecute any alcohol or drug abuse patient.[facility] the event this information is protected by the Federal Confidentiality of Alcohol and Drug Abuse Patient Records regulations: The Federal rules restrict any use of the information to criminally investigate or prosecute any alcohol or drug abuse patient.[facility] the event this information is protected by the Federal Confidentiality of Alcohol and Drug Abuse Patient Records regulations: The Federal rules restrict any use of the information to criminally investigate or prosecute any alcohol or drug abuse patient.[facility] the event this information is protected by the Federal Confidentiality of Alcohol and Drug Abuse Patient Records regulations: The Federal rules restrict any use of the information to criminally investigate or prosecute any alcohol or drug abuse patient.[facility] the event this information is protected by the Federal Confidentiality of Alcohol and Drug Abuse Patient Records regulations: The Federal rules restrict any use of the information to criminally investigate or prosecute any alcohol or drug abuse patient.[facility] the event this information is protected by the Federal Confidentiality of Alcohol and Drug Abuse Patient Records regulations: The Federal rules restrict any use of the information to criminally investigate or prosecute any alcohol or drug abuse patient.[facility] the event this information is protected by the Federal Confidentiality of Alcohol and Drug Abuse Patient Records regulations: The Federal rules restrict any use of the information to criminally investigate or prosecute any alcohol or drug abuse patient.[facility] Hospital[facility] the event this information is protected by the Federal Confidentiality of Alcohol and Drug Abuse Patient Records regulations: The Federal rules restrict any use of the information to criminally investigate or prosecute any alcohol or drug abuse patient.[facility] Hospital[facility] the event this information is protected by the Federal Confidentiality of Alcohol and Drug Abuse Patient Records regulations: The Federal rules restrict any use of the information to criminally investigate or prosecute any alcohol or drug abuse patient.[facility] Hospital[facility] the event this information is protected by the Federal Confidentiality of Alcohol and Drug Abuse Patient Records regulations: The Federal rules restrict any use of the information to criminally investigate or prosecute any alcohol or drug abuse patient.[facility] Hospital[facility] the event this information is protected by the Federal Confidentiality of Alcohol and Drug Abuse Patient Records regulations: The Federal rules restrict any use of the information to criminally investigate or prosecute any alcohol or drug abuse patient.[facility] Hospital[facility] the event this information is protected by the Federal Confidentiality of Alcohol and Drug Abuse Patient Records regulations: The Federal rules restrict any use of the information to criminally investigate or prosecute any alcohol or drug abuse patient.[facility] Hospital[facility] the event this information is protected by the Federal Confidentiality of Alcohol and Drug Abuse Patient Records regulations: The Federal rules restrict any use of the information to criminally investigate or prosecute any alcohol or drug abuse patient.[facility] Hospital[facility] the event this information is protected by the Federal Confidentiality of Alcohol and Drug Abuse Patient Records regulations: The Federal rules restrict any use of the information to criminally investigate or prosecute any alcohol or drug abuse patient.[facility] Hospital[facility] the event this information is protected by the Federal Confidentiality of Alcohol and Drug Abuse Patient Records regulations: The Federal rules restrict any use of the information to criminally investigate or prosecute any alcohol or drug abuse patient.[facility] Reason for Visit (unrecogniz ed section and content) Reason Comments Back Pain Reason Comments Physical Reason Comments Results Reason Comments Physical Reason Comments Follow Up Reason Comments Follow Up Reason Comments New Patient Evaluation OA/RA Evaluation Specialty Diagnoses / Procedures Referred By Contac Referred To Contact Rheumatology Diagnoses Primary osteoarthritis involving multiple joints Procedures CONSULT TO RHEUM/IMMUN DISEASE OFFICE/OUTPATIENT [facility] MDM 60-74 MINUTES Zheng Wilson MD [address] [place] [address] Referral ID Status Reason Start Date Expiration Date V isits Requested Visits Authorized [id number] Closed PCP Requested Referral 02/08/2023 02/08/2024 1 1 Reason Comments Jaw Pain Reason Comments Patient Update Weight Management Na vigation Reason Comments Appointment Reason Comments Results Reason Comments Back Pain Lower right side sta rted hurting since yesterday. Reason Comments Adrenal Elevated cortisol wi th mid normal ACTH Specialty Diagnoses / Procedures Referred By Contac t Referred To Contact Endocrinology Diagnoses Elevated cortisol level Hypoglycemia Tachycardia Procedures CONSULT TO ENDOCRINOLOGY OFFICE/OUTPATIENT NEW HIGH MDM 60 MINUTES Zheng Wilson MD [address] [place] [address] Referral ID Status Reason Start Date Expiration Date V isits Requested Visits Authorized [id number] Closed PCP Requested Referral 05/26/2023 05/25/2024 1 1 Reason Comments EKG Care Teams (unrecognized sec tion and content) Test Pilot Relationship Specialty Start Date End Date Zheng Wilson MD [address] [place] [address] PCP - General Family Medicine 03/25/16 Test Pilot Relationship Specialty Start Date End Date Zheng Wilson MD [address] [place] [address] PCP - General Family Medicine 03/25/16 Test Pilot Relationship Specialty Start Date End Date Zheng Wilson MD [address] [place] [address] PCP - General Family Medicine 03/25/16 Test Pilot Relationship Specialty Start Date End Date Zheng Wilson MD [address] [place] [address] PCP - General Family Medicine 03/25/16 Test Pilot Relationship Specialty Start Date End Date Zheng Wilson MD [address] [place] [address] PCP - General Family Medicine 03/25/16 Test Pilot Relationship Specialty Start Date End Date Zheng Wilson MD [address] [place] [address] PCP - General Family Medicine 03/25/16 Test Pilot Relationship Specialty Start Date End Date Zheng Wilson MD [address] [place] [address] PCP - General Family Medicine 03/25/16 Test Pilot Relationship Specialty Start Date End Date Zheng Wilson MD [address] [place] [address] PCP - General Family Medicine 03/25/16 Test Pilot Relationship Specialty [place] [address] [place] [id number] PCP - General Family Medicine 03/25/16 Test Pilot Relationship Specialty [place] [address] [place] [id number] PCP - General Family Medicine 03/25/16 Test Pilot Relationship Specialty Start Date End Date Zheng Wilson MD [address] [place] [id number] PCP - General Family Medicine 03/25/16 Test Pilot Relationship Specialty Start Date End Date Zheng Wilson MD [address] [place] [id number] PCP - General Family Medicine 03/25/16 Test Pilot Relationship Specialty Start Date End Date Zheng Wilson MD [address] [place] [address] [id number] PCP - General Family Medicine 05/27/24 Cristiane Navarro APRN.CNP [address] [place] [id number] [facility] 01/27/24 Cristina Nielson PA-C [address] [place] [phone] [facility] 01/27/24 Test Pilot Relationship Specialty Start Date End Date Zheng Wilson MD [address] [place] [id number] PCP - General Family Medicine 05/27/24 Cristiane Navarro APRN.NUTRITION COORDINATOR [address] [place] [address] [phone] [facility] 01/27/24 Cristina Nielson PA-C [address] [place] [id number] [facility] 01/27/24 FOR RECORDS PERTAINING TO PATIENTS WHO ARE OR HAVE BEEN ENROLLED IN A CHEMICAL DEPENDENCY/SUBSTANCEABUSE PROGRAM, SOME INFORMATION MAY BE OMITTED. This clinical summary was aggregated from multiple sources. Caution should be exercised in using it in the provision of clinical care. This summary normalizes information from multiple sources, and as a consequence, information in this document may materially change the coding, format and clinical context of patient data. In addition, data may be omitted in some cases. CLINICAL DECISIONS SHOULD BE BASED ON THE PRIMARY CLINICAL RECORDS. [email or web address] provides no warranty or guarantee of the accuracy or completeness of information in this document.
[2024-09-10 21:42] LABS: Hematocrit 43.3 % (37-47); Hemoglobin 15.2 g/dL (12.0-15.0); Immature Granulocytes Count 0.010 X10^3/uL (0.0-0.0); Mean Corp Hgb Conc 35.1 g/dL (32-36); Mean Corpuscular Volume 90.6 fL (81-99); Mean Platelet Vol. 9.6 fl (6.2-12.0); NRBC Flagged by Analyzer 0 % (0-5); Platelet Count 373 K/mm3 (150-450); RBC Distribution Width CV 13.2 % (11.6-14.6); RBC Distribution Width SD 43.9 fl (35.1-43.9); Red Blood Count 4.78 M/mm3 (4.2-5.4); White Blood Count 7.9 K/mm3 (4.4-11.0)
[2024-09-10 22:14] LABS: AST(SGOT) 26 U/L (<=31); Alanine Aminotransfer ALT/SGPT 19 U/L (<=34); Albumin, Serum 4.4 g/dL (3.5-5.0); Alkaline Phosphatase 74 U/L (35-104); Anion Gap 15 (5-15); BUN 6 mg/dL (4-19); BUN/Creat Ratio 11.2 RATIO (10-20); Calcium,Total 9.7 mg/dL (7.6-11.0); Carbon Dioxide 22.3 mmol/L (21.0-32.0); Chloride 101 mmol/L (98-108); Globulin 2.8 g/dL (2.2-4.2); Glucose 79 mg/dL (70-99); Potassium 4.1 mmol/L (3.3-5.1)
== END | disposition home or self-care (01) ==
PROVIDERS: PCP Family Medicine; Referring Provider Nurse Practitioner; Visit Provider Nurse Practitioner
DX: R60.0 Localized edema (principal); E16.2 Hypoglycemia, unspecified; E03.9 Hypothyroidism, unspecified; D64.9 Anemia, unspecified; G62.9 Polyneuropathy, unspecified
CPT/HCPCS: 80053; 83036; 84443; 85025; 86376